=== PATIENT | male | born 1960 | race Caucasian/White ===

== ENCOUNTER 2024-07-19 16:49 | Emergency (ER) | payer OTHER, SELFPAY ==
--- NOTE | ~2024-07-19 | XR_ITS ---
EXAMINATION: XR chest 2V Exam Date/Time: 07/19/2024 17:53 DERMATOLOGY TEACHER HISTORY: cough Comparison: None. RESULT: Lines, tubes, and devices: None. Lungs and pleura: Clear. Cardiomediastinal silhouette: Unremarkable. Other: No acute osseous or upper abdominal finding. IMPRESSION: No acute cardiopulmonary process. Reviewed, dictated and finalized at location K. ATOLOGY TEACHER
--- OUTSIDE RECORDS SUMMARY | 2024-07-19 16:51 | XMS_ITS | Patient Health Record ---
Author Organization [facility] Address [address] [place] [address] Care Team Providers Care Hydraulic Blocker Name Role Phone Clinton Maddox Primary Care Provider [phone] Oscar Linares Unavailable [phone] Valery Moore Unavailable [phone] France Natarajan Unavailable [phone] Na Goldstein Unavailable [phone] Thi Braun Unavailable [phone] Vianca Pearson Unavailable [phone] Ese Jansen Unavailable [phone] Juliette Snow Unavailable [phone] Allergies Allergen (clinical drug ingredient) Drug/Non Drug Allergy documented on EMR Reaction Allergy Type Onset Date Status Mold Unknown Allergy Active No Known Drug Allergy Unknown Drug Allergy Active Results Component Value Reference Range Notes HIV Screen *HIV 1, 2 Ab, p24 Ag Reviewed date:11/24/2023 09:42:33 AM Interpretation: Performing Lab:[facility], [address] [facility], Phone - [phone], Director - PhDGrace Hospitalchristyi Notes/Report: HIV Ab/p24 Ag Screen Non Reactive Non Reactive HIV Negative HIV-1/HIV-2 antibodies and HIV-1 p24 antigen were NOT detected. There is no laboratory evidence of HIV infection. Hemoglobin A1c* Reviewed date:11/24/2023 09:42:33 AM Interpretation: Performing Lab:[facility], [address] [facility], Phone - [phone], Director - PhDMehul Notes/Report: Hemoglobin A1c 5.5 4.8-5.6 % . Prediabetes: 5.7 - 6.4 Diabetes: >6.4 Glycemic control for adults with diabetes: <7.0 Hepatitis C Virus Antibody w /Rflx to Quantitative Real-time PCR ([id number]) Reviewed date:11/24/2023 09:42:33 AM Interpretation: Performing Lab:[email or web address] [address] [place] [address], Phone - [phone], Director - [facility] Hospitalarben Notes/Report: HCV Ab Non Reactive Non Reactive Interpretation: Not infected with HCV unless early or acute infection is suspected (which may be delayed in an immunocompromised individual), or other evidence exists to indicate HCV infection. Lipid Panel* Reviewed date:11/24/2023 09:42:33 AM Interpretation: Performing Lab:[facility] [email or web address] [address] [place], [place] [address] [facility], Phone - [phone], Director - [facility] Hospital[facility]y Notes/Report: Cholesterol, Total 170 100-199 mg/dL Triglycerides 120 0-149 mg/dL HDL Cholesterol 43 >39 mg/dL VLDL Cholesterol Galo 22 5-40 mg/dL LDL Chol Calc ([facility]) 105 0-99 mg/dL CMP 14 Comprehensive Metabol ic Panel* Reviewed date:11/24/2023 09:42:33 AM Interpretation: Performing Lab:[email or web address] [address] [place] [address], Phone - [phone], Director - [facility] Notes/Report: Glucose 101 70-99 mg/dL BUN 15 8-27 mg/dL Creatinine 0.93 0.76-1.27 mg/dL eGFR 93 >59 mL/min/1.73 BUN/Creatinine Ratio 16 10-24 Sodium 133 134-144 mmol/L Potassium 5.5 3.5-5.2 mmol/L Chloride 94 96-106 mmol/L Carbon Dioxide, Total 26 20-29 mmol/L Calcium 9.1 8.6-10.2 mg/dL Protein, Total 6.7 6.0-8.5 g/dL Albumin 4.0 3.9-4.9 g/dL Globulin, Total 2.7 1.5-4.5 g/dL A/G Ratio 1.5 1.2-2.2 Bilirubin, Total 0.5 0.0-1.2 mg/dL Alkaline Phosphatase 84 44-121 IU/L AST (SGOT) 22 0-40 IU/L ALT (SGPT) 18 0-44 IU/L TSH Rfx on Abnormal to Free T4 Reviewed date:11/24/2023 09:42:33 AM Interpretation: Performing Lab:[facility] [place], [address] [facility]), Phone - [phone], Director - Shira Notes/Report: TSH 1.580 0.450-4.500 uIU/mL Reason For Referral Reason Therapy Diagnosis 1 MDD (major depressiv e disorder), recurrent episode, severe (F33.2) Diagnosis 2 PTSD (post-traumatic stress disorder) (F43.10) Diagnosis 3 Alcohol use disorder (F10.99) Diagnosis 4 Methamphetamine abus e (F15.10) Referral Organization [facility] Referring Provider First Name France Referring Provider Last Name Delgado Referring Provider Speciality Psychiatry Referred Provider Specialty [facility] General Notes France Natarajan 03:57:55 PM > Client with hx of and current depression, current anxiety, hx of PTSD, intermittent GENOVEVA with methamphetamine and alcohol. Please refer for therapy as client reports he would like to start. Thank you! Clinical Notes Gurinder Monahan 10:09:58 AM >HN PW attempted to contact consumer regarding referral. MICHAEL left requesting a return call., Rakan Espinosa 10/18/2023 10:10:24 AM > Client was unable to be reached, left a voicemail., Gurinder Monahan 10/20/2023 11:23:21 AM >HN PW attempted to contact consumer regarding referral. MICHAEL left requesting a return call., Gurinder Monahan 10/20/2023 03:43:39 PM >Letter mailed to consumer., Gurinder Monahan 10/27/2023 09:36:00 AM >HN PW attempted to contact consumer regarding referral. No answer at this time. If no response from consumer by 11/03/2023, will proceed with closure of case., Gurinder Monahan 11/04/2023 09:49:21 AM >No response from consumer; case closed. Referral Priority Routine Medications Medication SIG (Take, Route, Frequency, Duration) Notes Start Date End Date Status Farxiga 10 MG 1 tablet Orally Once a day Active Atorvastatin Calcium 40 mg TAKE 1 TABLET BY MOUTH DAILY for 30 Active dilTIAZem HCl ER Coated Beads 300 MG TAKE 1 CAPSULE BY MOUTH DAILY Active Fluticasone Furoate 100 MCG/ACT 1 puff Inhalation Once a day 11/25/2023 Active Spacer/Aero-Holding Chambers - one externally with inhaler as directed Not-Taking Gabapentin 400 mg TAKE 1 CAPSULE BY MOUTH THREE TIMES A DAY for 30 Active Eliquis 5 mg TAKE 1 TABLET BY CAROLINE TH TWICE A DAY Active Ventolin HFA 108 (90 Base) MCG/ACT 2 puffs as needed for shortness of breath Inhalation every 4 hrs 07/19/2024 Active Furosemide 20 MG 1 tablet Orally Once a day for 30 days Active Topiramate 25 MG TAKE 1 TABLET BY CAROLINE TH DAILY FOR TWO WEEKS THEN 2 TABLETS DAILY WITH EVENING MEAL Not-Taking Spironolactone 25 MG 1 tablet Orally Active Gabapentin 400 MG 1 capsule Orally Thr ee times a day for 30 days Active Metoprolol Succinate ER 50 MG 1 tablet Orally Once a day Active Mirtazapine 30 MG 1 tablet at bedtime Orally Once a day for 30 days Active Losartan Potassium 25 MG 1 tablet Orally Once a day Active hydrOXYzine Pamoate 50 MG 1 capsule as n eeded Orally Once a day for 30 days Active Multivitamin - as directed Orally Active DULoxetine HCl 60 MG 2 capsules Orally o nce a day for 30 days Active traZODone HCl 100 MG 1 tablet at bedtime as needed Orally Once a day for 30 days Active Immunizations Vaccine Route Administration Date Status Comme nts COVID-19 Moderna 1ST IM Intramuscular 09/11/2020 Administered EUA date 0. Screening reviewed and consent signed. Patient tolerated well. COVID-19 Moderna 2nd IM Intramuscular 10/16/2020 Administered Social History Tobacco Use: Social History Observation Description Date Details (start date - stop date) Current Smoker NA - NA Sex Assigned At : Social History Observation Description Sex Assigned At Male PRAPARE Question Answer Notes Date Completed/Updated: 07/18/2023 What is your current housing situation? I have housing Are you worried about losing your housing? No What is the highest level of school that you have finished? More than high school What is your current work situation? Unemployed and seeking work In the past year, have you o r any family members you live with been unable to get any of the following when it was really needed? Check all that apply I do not have problems meeting my needs Has lack of transportation k ept you from medical appointments, meetings, work or from getting things needed for daily living? No How often do you see or talk to people that you care about and feel close to? (For example: talking to friends on the phone, visiting friends or family, going to zoroastrianism or club meetings) 1 or 2 times a week Nathan talks with his daughter weekly, her and his cats are important to him and his recovery How stressed are you? Stress is when someone feels tense, nervous, anxious, or can\t sleep at night because their mind is troubled Very much coming off of a month long depression where he did not get off the couch, gained 100 pounds and snorted meth on a regular basis. Nathan is also in the process of moving houses In the past year have you sp ent more than 2 nights in a row in a snf, snf, skilled nursing center, or juvenile correctional facility? No Are you a refugee? No What country are you from? [place] Do you feel physically and emotionally safe where you currently live? Yes In the past year, have you b een afraid of your partner or ex-partner? No PRAPARE Score: 7 Enabling Services Provided? Yes Please specify Other Services discussed therap y process and problem solving skills to create a plan for when he leaves the unit Tobacco Control (Standard) Question Answer Notes Tobacco use: Current every day smoker Additional Findings: Tobacco user Moderate cigar ette smoker (10-19 cigs/day) Section Notes: Problems Problem Type SNOMED Code ICD Code Onset Dates Problem Status W/U Status Risk Notes Problem Morbid obesity (disorder) (256609216) Morbid (severe) obesity due to excess calories (E66.01) Active confirmed Problem Tobacco user (766085540) Nicotine dependence, unspecified, uncomplicated (F17.200) Active confirmed Problem Paroxysmal atrial fibrillation (901245192) Paroxysmal atrial fibrillation (I48.0) Active confirmed Problem Posttraumatic stress disorder (05207125) PTSD (post-traumatic stress disorder) (F43.10) Active confirmed Problem Asthma (945618244) Asthma (J45.909) Active conf irmed Problem Urinary incontinence (263947828) Urinary incontinence (R32) Active confirmed Problem 4300642271647 Tinnitus of both ears (H93.13) Active confirmed Problem Physical examination, complete (58528983) Physical exam (Z00.00) Active confirmed Problem Disorder caused by alcohol (disorder) (959676884) Alcohol use disorder (F10.99) Active confirmed Problem 419141860 Moderate episode of recurrent major depressive disorder (F33.1) 07/08/19 17 Active confirmed Problem Severe recurrent major depression without psychotic features (17793212) MDD (major depressive disorder), recurrent episode, severe (F33.2) Active confirmed Problem 810494714 Methamphetamine abuse (F15.10) Active confirmed Problem 080174641230175 Obesity (BMI 30.0-34.9) (E66.9) Active confirmed Problem 284834927 Erectile dysfunction, unspecified erectile dysfunction type (N52.9) Active confirmed Problem 87799374 Hyperlipidemia, unspecified hyperlipidemia type (E78.5) Active confirmed Problem 28312825 Peripheral polyneuropathy (G62.9) Active confirmed Problem 55523043 Hypertension, unspecified type (I10) 12/13/19 21 Active confirmed Problem Obesity (947601497) Obesity, unspecified classification, unspecified obesity type, unspecified whether serious comorbidity present (E66.9) Active confirmed Problem Chronic diastolic heart failure (820145448) Chronic diastolic congestive heart failure (I50.32) 10/20/19 24 Active confirmed Problem 0291176190707 Testosterone deficiency in male (E29.1) Active confirmed Problem 395044360 Chronic depressi on (F32.9) 12/13/19 21 Active confirmed Vital Signs Heart Rate 103 /min 07/19/2024 Temperature 99.6 degrees Fahrenheit 07/19/2024 Respiratory Rate 20 /min 07/19/2024 Blood pressure diastolic 90 mm Hg 07/18/2024 Oximetry 96 % 07/19/2024 Height 70 in 07/19/2024 Blood pressure systolic 132 mm Hg 07/18/2024 Weight 312 lbs 07/19/2024 BMI 44.76 kg/m2 07/19/2024 Encounters Encounter Location Date Provider Diagnosis [address] [place] [address] 08/11/2023 Thi Braun MDD (major depressiv e disorder), recurrent episode, severe F33.2 [facility] [address] [place] [address] 08/17/2023 Thi Braun [address] [place] [address] 09/30/2023 Clinton Maddox [address] [place] [place] [address] 11/21/2023 Clinton Maddox [facility] [address] [place] [address] 11/24/2023 Clinton Maddox Hyperkalemia E87.5 a nd Hyponatremia E87.1 [facility] [address] [facility] [place] [address] 11/28/2023 Clinton Maddox [address] [place] [place] [address] 05/18/2024 France Natarajan MDD (major depressiv e disorder), recurrent episode, severe F33.[address] [place] [address] 05/31/2024 France Natarajan [address] [place] [place] [address] 06/11/2024 [facility] [address] [place] [address] 06/19/2024 France [facility] [address] [place] [address] 07/05/2024 France Natarajan [address] [place] [address] 07/16/2024 France Natarajan [facility] [address] [facility] [place] [address] 07/19/2024 Clinton Maddox [address] [place] [place] [address] 10/20/2023 Clinton Maddox [facility] [address] [place] [address] 11/22/2023 Clinton Maddox Hyperlipidemia, unspecified hyperlipidemia type E78.5 ; Paroxysmal atrial fibrillation I48.0 ; Hypertension, unspecified type I10 ; Exposure to potential infection Z20.9 and Metabolic syndrome E88.810 [facility] [address] [place] [address] 11/21/2023 Valery Moore [address] [place] [address] 08/10/2023 Clinton Maddox Hypertension, unspecified type I10 ; Paroxysmal atrial fibrillation I48.0 ; Hyperlipidemia, unspecified hyperlipidemia type E78.5 ; Methamphetamine abuse F15.10 and Alcohol use disorder F10.[address] [address] 10/20/2023 Clinton Maddox Hypertension, unspecified type I10 ; Chronic diastolic congestive heart failure I50.32 ; Paroxysmal atrial fibrillation I48.0 ; Hyperlipidemia, unspecified hyperlipidemia type E78.5 ; Exposure to potential infection Z20.9 ; MDD (major depressive disorder), recurrent episode, severe F33.2 ; Metabolic syndrome E88.810 ; Morbid (severe) obesity due to excess calories E66.01 ; Nutritional counseling Z71.3 and Methamphetamine abuse F15.10 [facility] [place] [address] 11/25/2023 Clinton Maddox Chronic diastolic congestive heart failure I50.32 ; Asthma J45.909 and Hypertension, unspecified type I10 [address] [place] [address] 12/01/2023 Clinton Maddox Morbid (severe) obesity due to excess calories E66.01 and Nutritional counseling Z71.3 [facility] [place] [address] 07/19/2024 Ese Short Diaphoresis R61 and Urinary incontinence R32 [address] [place] [address] 07/18/2024 Oscar Linares General medical exam Z00.00 ; Tuberculosis screening Z11.1 ; Morbid (severe) obesity due to excess calories E66.01 and Nutritional counseling Z71.3 [facility] [address] [place] [address] 11/21/2023 Ese Jansen Adult general medica l examination Z00.00 and Nutritional counseling Z71.[address] [address] 11/23/2023 France Delgado Methamphetamine abus e F15.10 ; Alcohol use disorder F10.99 ; MDD (major depressive disorder), recurrent episode, severe F33.2 and PTSD (post-traumatic stress disorder) F43.[address] [address] 01/20/2024 Kyjaxona Pearson Methamphetamine abus e F15.10 ; Alcohol use disorder F10.99 ; MDD (major depressive disorder), recurrent episode, severe F33.2 and PTSD (post-traumatic stress disorder) F43.[address] [address] 06/11/2024 France Delgado Methamphetamine abus e F15.10 ; Alcohol use disorder F10.99 ; MDD (major depressive disorder), recurrent episode, severe F33.2 and PTSD (post-traumatic stress disorder) F43.[address] [address] 08/16/2023 Thi Braun Methamphetamine abus e F15.10 ; MDD (major depressive disorder), recurrent episode, severe F33.2 ; Alcohol use disorder F10.99 and PTSD (post-traumatic stress disorder) F43.[address] [address] 10/12/2023 France Delgado Methamphetamine abus e F15.10 ; Alcohol use disorder F10.99 ; MDD (major depressive disorder), recurrent episode, severe F33.2 and PTSD (post-traumatic stress disorder) F43.10 [facility] [address] [place] [address] 07/18/2024 Juliette Snow MDD (major depressiv e disorder), recurrent episode, severe F33.2 Assessments Encounter Date Diagnosis (ICD Code) Assessment Notes Treatment Notes Treatment Clinical Notes Section Notes 08/10/2023 Paroxysmal atrial fibrillation (ICD-10 - I48.0) 08/10/2023 Hypertension, unspecified type (ICD-10 - I10) sent info on mediterranean diet 08/11/2023 MDD (major depressive disorder), recurrent episode, severe (ICD-10 - F33.2) 08/16/2023 Methamphetamine abuse (ICD-10 - F15.10) 10/12/2023 Methamphetamine abuse (ICD-10 - F15.10) 10/20/2023 Hypertension, unspecified type (ICD-10 - I10) CONTROLLED 10/20/2023 Chronic diastolic congestive heart failure (ICD-10 - I50.32) 11/22/2023 Hyperlipidemia, unspecified hyperlipidemia type (ICD-10 - E78.5) 11/21/2023 Adult general medical examination (ICD-10 - Z00.00) 11/23/2023 Methamphetamine abuse (ICD-10 - F15.10) Encouraged therapy/groups 11/24/2023 Hyperkalemia (ICD-10 - E87.5) 11/24/2023 Hyponatremia (ICD-10 - E87.1) 11/25/2023 Asthma (ICD-10 - J45.909) 11/25/2023 Chronic diastolic congestive heart failure (ICD-10 - I50.32) 12/01/2023 Morbid (severe) obesity due to excess calories (ICD-10 - E66.01) 01/20/2024 Methamphetamine abuse (ICD-10 - F15.10) 05/18/2024 MDD (major depressive disorder), recurrent episode, severe (ICD-10 - F33.2) 06/11/2024 Methamphetamine abuse (ICD-10 - F15.10) Encouraged non-use 07/18/2024 General medical exam (ICD-10 - Z00.00) Continue treatment as recommended by [facility] staff. Encouraged patient to obtain routine medical care with patient's own primary care provider or establish as a patient at [facility] if no current primary care provider. 07/18/2024 Tuberculosis screening (ICD-10 - Z11.1) 07/18/2024 MDD (major depressive disorder), recurrent episode, severe (ICD-10 - F33.2) 07/19/2024 Urinary incontinence (ICD-10 - R32) 07/19/2024 Diaphoresis (ICD-10 - R61) 07/18/2024 Morbid (severe) obesity due to excess calories (ICD-10 - E66.01) 06/11/2024 Alcohol use disorder (ICD-10 - F10.99) Encouraged non-use 11/23/2023 Alcohol use disorder (ICD-10 - F10.99) Encouraged therapy/groups 01/20/2024 Alcohol use disorder (ICD-10 - F10.99) 12/01/2023 Nutritional counseling (ICD-10 - Z71.3) 11/25/2023 Hypertension, unspecified type (ICD-10 - I10) 11/21/2023 Nutritional counseling (ICD-10 - Z71.3) 11/22/2023 Paroxysmal atrial fibrillation (ICD-10 - I48.0) 10/20/2023 Paroxysmal atrial fibrillation (ICD-10 - I48.0) 10/12/2023 Alcohol use disorder (ICD-10 - F10.99) 08/16/2023 Alcohol use disorder (ICD-10 - F10.99) 08/16/2023 MDD (major depressive disorder), recurrent episode, severe (ICD-10 - F33.2) Antidepressant education - reviewed side effects which may include increased risk of suicide, anxiety, sleep disturbance, nausea, dry mouth, increased bruising, sexual dysfunction, iain, wt gain, and serotonin syndrome. Antipsychotics education - reviewed side effects which may include metabolic syndrome, movement disorders (EPS & TD), sedation, and cardiac arrhythmias. Reasons, potential benefits, interactions and side effects of all medications were discussed. The Patient/Guardian asked appropriate questions, appeared to understand the answers, and decided to accept the treatment and continue being followed. Alternatives and expected course without treatment were reviewed. The Patient/Guardian is aware of the need to contact the office or return for an earlier appointment if any problems or concerns arise. May also contact the 24-hour crisis hotline (R), refer to the closest emergency room or call 911 if new symptoms arise of existing symptoms worsen. The Patient/Guardian is aware that this would apply to symptoms like: suicidal ideation, homicidal ideation, high risk behaviors, manic symptoms, psychotic symptoms, physical symptoms, or any other symptoms that may be dangerous to self or others. Greater than 50% of time spent on coordination and counseling where psychopharmacology as well as psychotherapeutic interventions were discussed along with review of treatments in the past. Education provided concerning need for adequate hydration. Patient/Guardian verbalized understanding of education, treatment plan and follow up. May self-administer or be administered own oral medication per [facility] Protocols. Provided informed consent with understanding of side effects, risks and benefits as well as alternative treatments as previously discussed and with the above recommended medications ang other aspects of the treatment program. Agrees to return sooner if symptoms worsen or suicidal or homicidal ideations occur. support and education provided concerning illness and treatment plan, risks and benefits, pt verbalized understanding of the same and agreeable 08/10/2023 Hyperlipidemia, unspecified hyperlipidemia type (ICD-10 - E78.5) sent info on mediterranean diet and body weight exercises 08/10/2023 Methamphetamine abuse (ICD-10 - F15.10) abstaining 08/16/2023 PTSD (post-traumatic stress disorder) (ICD-10 - F43.10) 10/12/2023 MDD (major depressive disorder), recurrent episode, severe (ICD-10 - F33.2) 10/20/2023 Hyperlipidemia, unspecified hyperlipidemia type (ICD-10 - E78.5) 11/22/2023 Hypertension, unspecified type (ICD-10 - I10) 01/20/2024 MDD (major depressive disorder), recurrent episode, severe (ICD-10 - F33.2) Today's visit: Patient is a 63-year-old male who presents for a psychiatric f/u, this is my first time meeting this patient, and I am seeing them during the temporary absence of current psych provider. Previously seen on 11/23/2023 by LORENA Ruelas and during this appt was continued on Trazodone 100 mg PRN, hydroxyzine 50 mg PRN, Cymbalta DR 120 mg, Remeron 30 mg, Stopped on Abilify and increased on Gabapentin to 400 mg TID. Previous PHQ-9 score of 9, today is 15. Recently on crisis unit November 2023 for depression. Patient reports recent depressive episodes, social isolation, and difficulty with mobility due to his weight of 280 pounds. He has a history of substance abuse but is now focused on improving his health. The plan includes continuing current medications, encouraging regular exercise and healthy eating, addressing social isolation through volunteering or part-time work, and monitoring for any signs of crisis. Encourage the patient to establish a daily routine, including regular exercise such as walking, which has previously helped improve mood. Reevaluate the need for medication adjustments at the next follow-up appointment or sooner if symptoms worsen.No acute safety concerns the time of this appt, he is agreeable to treatment plan and was provided an opportunity to ask questions. May self-administer medications or be administered own oral medications per [facility] protocols. Provided informed consent with understanding of side effects, adverse effects, risks and benefits as well as alternative treatments as previously discussed and with the above recommended medications & other aspects of the treatment program. Agrees to return sooner if symptoms worsen or suicidal or homicidal ideations occur. 11/23/2023 MDD (major depressive disorder), recurrent episode, severe (ICD-10 - F33.2) Discussed temporary increase in gabapentin- monitoring sobriety. Client currently in [facility] with goal of sobriety after leaving. 06/11/2024 MDD (major depressive disorder), recurrent episode, severe (ICD-10 - F33.2) Client reports he may be going into [facility] to be evaluated for MH. Provider encouraged this for MH and substance use. Email sent to Behavioral Health team as client reports willingness to talk with crisis team. Email from Aria Eugene reports she plans to reach out to client. Discussed substance use and interference with MH medications and evaluation- client v/u. No changes at this time. Discussed possible changes with sobriety, client v/u. 07/18/2024 Nutritional counseling (ICD-10 - Z71.3) 06/11/2024 PTSD (post-traumatic stress disorder) (ICD-10 - F43.10) 01/20/2024 PTSD (post-traumatic stress disorder) (ICD-10 - F43.10) 11/22/2023 Exposure to potential infection (ICD-10 - Z20.9) 11/23/2023 PTSD (post-traumatic stress disorder) (ICD-10 - F43.10) Encouraged therapy/groups 10/20/2023 Exposure to potential infection (ICD-10 - Z20.9) 10/12/2023 PTSD (post-traumatic stress disorder) (ICD-10 - F43.10) 08/10/2023 Alcohol use disorder (ICD-10 - F10.99) abstaining 10/20/2023 MDD (major depressive disorder), recurrent episode, severe (ICD-10 - F33.2) START ABILIFY TODAY ORDERED. 11/22/2023 Metabolic syndrome (ICD-10 - E88.810) 10/20/2023 Metabolic syndrome (ICD-10 - E88.810) 10/20/2023 Morbid (severe) obesity due to excess calories (ICD-10 - E66.01) 10/20/2023 Nutritional counseling (ICD-10 - Z71.3) 10/20/2023 Methamphetamine abuse (ICD-10 - F15.10) MOST RECENT USE EARLY ABOUT ONE MONTH AGO 08/10/2023 Other continue f/u wi th psych 10/12/2023 Other Reasons, potential benefits, potential risks, interactions and side effects of all medications were discussed. The Patient/Guardian asked appropriate questions, appeared to understand the answers, and decided to accept the treatment and continue being followed. Alternatives and expected course without treatment were reviewed. The Patient/Guardian is aware of the need to contact the office or return for an earlier appointment if any problems or concerns arise. May also contact the 24-hour crisis hotline ([facility]), refer to the closest emergency room or call 911 if new symptoms arise of existing symptoms worsen. The Patient/Guardian is aware that this would apply to symptoms like: suicidal ideation, homicidal ideation, high risk behaviors, manic symptoms, psychotic symptoms, physical symptoms, or any other symptoms that may be dangerous to self or others. Greater than 50% of time spent on coordination and counseling where psychopharmacology as well as psychotherapeutic interventions were discussed along with review of treatments in the past. Education provided concerning need for adequate hydration. Patient/Guardian verbalized understanding of education, treatment plan and follow up. This session was completed telephonically with client/parental/guard jayda consent: Unable to determine movement status, assess appearance, affect, AIMS, or vital signs. 11/21/2023 Other Provided case management services to address social determinants of health needs and reduce barriers to health care services. 11/23/2023 Other Reasons, potential benefits, potential risks, interactions and side effects of all medications were discussed. The Patient/Guardian asked appropriate questions, appeared to understand the answers, and decided to accept the treatment and continue being followed. Alternatives and expected course without treatment were reviewed. The Patient/Guardian is aware of the need to contact the office or return for an earlier appointment if any problems or concerns arise. May also contact the 24-hour crisis hotline ([facility]), refer to the closest emergency room or call 911 if new symptoms arise of existing symptoms worsen. The Patient/Guardian is aware that this would apply to symptoms like: suicidal ideation, homicidal ideation, high risk behaviors, manic symptoms, psychotic symptoms, physical symptoms, or any other symptoms that may be dangerous to self or others. Greater than 50% of time spent on coordination and counseling where psychopharmacology as well as psychotherapeutic interventions were discussed along with review of treatments in the past. Education provided concerning need for adequate hydration. Patient/Guardian verbalized understanding of education, treatment plan and follow up. This session was completed telephonically with client/parental/guard jayda consent: Unable to determine movement status, assess appearance, affect, AIMS, or vital signs. 06/11/2024 Other Reasons, potential benefits, potential risks, interactions and side effects of all medications were discussed. The Patient/Guardian asked appropriate questions, appeared to understand the answers, and decided to accept the treatment and continue being followed. Alternatives and expected course without treatment were reviewed. The Patient/Guardian is aware of the need to contact the office or return for an earlier appointment if any problems or concerns arise. May also contact the 24-hour crisis hotline ([facility]), refer to the closest emergency room or call 911 if new symptoms arise of existing symptoms worsen. The Patient/Guardian is aware that this would apply to symptoms like: suicidal ideation, homicidal ideation, high risk behaviors, manic symptoms, psychotic symptoms, physical symptoms, or any other symptoms that may be dangerous to self or others. Greater than 50% of time spent on coordination and counseling where psychopharmacology as well as psychotherapeutic interventions were discussed along with review of treatments in the past. Education provided concerning need for adequate hydration. Patient/Guardian verbalized understanding of education, treatment plan and follow up. This session was completed telephonically with client/parental/guard jayda consent: Unable to determine movement status, assess appearance, affect, AIMS, or vital signs. 07/18/2024 Other 07/18/2024 Other Herbarium Curator met with Nathan to assist in working on building skills to help the consumer gain confidence in their independent living skills. The technical report writer practiced with Nathan implementing problem solving skills (identifying coping skills, positives in life, recovery plan) to help facilitate exploration of options (maintaining depression and sobriety after treatment). The technical report writer encouraged and engaged in critical thinking of how to use natural resources and coping skills to help manage symptoms in the moment. Herbarium Curator also worked on modeling and practicing with the consumer healthy coping skills to reduce stress and anxiety. Plan Of Treatment Future Test Test Name Order Date QuantiFERON-TB Gold Plus 07/18/2024 Next Appt Details Provider Name:France Meet post, 07/23/2024 01:40:00 PM, [address] [facility] [address], [place], [address], Insurance Providers Payer Name Payer Address Payer Phone Subscriber Number Group Number Insured Name Patient Relationship to Insured Coverage Start Date Coverage End Date [facility] Attn Claims Department [address] [place] [phone] [id number] Nathan Thibodeaux Self - patient is the insured 4 [employer] Att[employer] Claims Department [address] [place] [phone] [id number] Nathan Thibodeaux Self - patient is the insured 1 [employer] Att[employer] Claims Department [address] [place] [phone] [id number] Nathan Thibodeaux Self - patient is the insured 2 [employer] Attn Claims Department [address] [phone] [id number] aNthan Thibodeaux Self - patient is the insured 5 Medications Administered Medication Instructions Date of Administration Dosage Notes Vivitrol 12/12/2020 380 mg Trust Manager Assistant A roma. Pt tolerated well. Voiced no questions or concerns at present time. Vivitrol 02/06/2021 380 mg Patient tolera isaias injection well. Patient voiced no complaints and had no questions and had no concerns. Medical (General) History Medical History History ICD Code Moderate episode of recurrent major depr essive disorder Alcohol abuse Hypertension Anxiety Surgical History Surgery Date(Month/Year) Bilateral knee replacement Hospitalization History Reason Date(Month/Year) multiple mental health
--- OUTSIDE RECORDS SUMMARY | 2024-07-19 16:51 | XMS_ITS ---
Author Organization [facility] Address [address] [place] [address] Care Team Providers Care Lease Out Worker Name Role Phone Clinton Maddox Primary Care Provider Juliette Snow Unavailable [phone] REASON FOR VISIT at Social History Sex Assigned At : Social History Observation [...] phone, visiting friends or family, going to bahai or club meetings) 1 or 2 times [...] 2 nights in a row in a fdc, fci, halfway center, or juvenile correctional facility? No Do you feel physically and emotionally safe where you currently live? Yes In the past year, have you b een afraid of your partner or ex-partner? No Are you a refugee? No What country are you from? [place] PRAPARE Score: 7 Enabling Services Provided? Yes Please specify Other Services discussed therap y process and problem solving skills to create a plan for when he leaves the unit Section Notes: 0 Encounters Encounter Location Date Provider Diagnosis [facility] [address] [place] [address] 07/18/2024 Juliette Snow MDD (major depressive disorder), recurrent episode, severe F33.2 Assessments Encounter Date Diagnosis (ICD Code) Assessment Notes Treatment Notes Treatment Clinical Notes Section Notes 07/18/2024 MDD (major depressive disorder), recurrent episode, severe (ICD-10 - F33.2) 07/18/2024 Other Data Technician met with Nathan to assist in working on building skills to help the consumer gain confidence in their independent living skills. The writer producer practiced with Nathan implementing problem solving skills (identifying coping skills, positives in life, recovery plan) to help facilitate exploration of options (maintaining depression and sobriety after treatment). The writer producer encouraged and engaged in critical thinking of how to use natural resources and coping skills to help manage symptoms in the moment. Data Technician also worked on modeling and practicing with the consumer healthy coping skills to reduce stress and anxiety. Plan Of Treatment Treatment Notes Assessment Notes Other Data Technician met with Nathan to assist in working on building skills to help the consumer gain confidence in their independent living skills. The writer producer practiced with Nathan implementing problem solving skills (identifying coping skills, positives in life, recovery plan) to help facilitate exploration of options (maintaining depression and sobriety after treatment). The writer producer encouraged and engaged in critical thinking of how to use natural resources and coping skills to help manage symptoms in the moment. Data Technician also worked on modeling and practicing with the consumer healthy coping skills to reduce stress and anxiety. Next Appt Details Follow Up: prn, Reason: Provider Name:France post, 07/23/2024 01:40:00 PM, [address], [place], [address], Progress Notes * Nathan GONZALEZDOB:1960 (63 yo M)Acc No.[id number]:07/18/2024 Patient:?Nathan GONZALEZ Provider:?Juliette Snow :1960???Age:63 Y???Sex:Male Ifeanyi e:07/18/2024 Address:[address] [place], [place] [id number] Pcp:Clinton Maddox Subjective: * Chief Complaints: * ???[facility] * HPI: ???[facility]:?Who Is Your Primary Care Provider??Do You Have A PCP??Yes,?[facility] Provider Name? Varsha.?Do You Have A Psychiatric Provider??Do You Have A Psychiatric Provider??Yes,?[facility] Provider Name? france.?Do You Have Any Other Professional Supports??Do You Have Any Other Professional Supports??Yes,?[facility] Staff Name And Role? Currently on unit.?Consent Forms Completed During Appointment?Consent Forms Completed?Consent To Treat, Health Care Providers, Emergency Contact, Probation/[place].?Assessment of Social Determinants of Health:::?Has A PRAPARE Been Completed In The Past Year??Has a PRAPARE Been Completed In The Past Year??Yes,?Was It Completed Today Using SmartVidAngel??Yes.? * Medical History:? * Medications:? Objective: * Vitals:? * Examination: ???General Examination: ???Nathan was AOx4, minor jerks of the hand and SOB during conversations, he was engaged and alert with disucssion. Nathan reports he is where he is supposed to be [at [place]] and will get started on his recovery plan and goals as soon as possible. He states this round of depression and relapse was the worst he's ever experienced and scared him straight. Assessment: * Assessment: 1.?MDD (major depressive dis order), recurrent episode, severe - F33.2 (Primary)??? Plan: * Treatment: * Procedure Codes:?[address] [id number] PT&/FAMILY 30 MINUTES AJ * Follow Up:?prn * * ODIAL LABORER Electronically co-signed by Valery Moore LCSW, [id number] on 07/18/2024 at 05:02 PM CUSTODIAL LABORER Sign off status: Completed true * Provider:?Juliette Snow Date:?07/18/19 25 Generated for Cheyanne carranza/Bret/eTransmitting on:?07/19/2024 04:51 PM CUSTODIAL LABORER History and Physical Notes * HPI (History of Present Illness) Category Sub-Category Detail Notes Category Not es Assessment of Social Determinants of Health:: Has A PRAPARE Been Completed In The Past Year? Has a PRAPARE Been Completed In The Past Year?: Yes ?Was It Completed Today Using SmartForm? : Yes [facility] Who Is Your Primary Care Provider? Do You Have A PCP?: Yes ?[facility] Provider Name: Varsha Do You Have A Psychiatric Provider? Do You Have A Psychiatric Provider?: Yes ?[facility] Provider Name: france Do You Have Any Other Profes sional Supports? Do You Have Any Other Professional Supports?: Yes ?[facility] Staff Name And Role: Currently on u nit Consent Forms Completed Johan carranza Appointment Consent Forms Completed: Consent To Elle t, Health Care Providers, Emergency Contact, Probation/[place] Examination Category Sub-Category Detail Notes Category Not es General Examination Nathan wa s AOx4, minor jerks of the hand and SOB during conversations, he was engaged and alert with disucssion. Nathan reports he is where he is supposed to be [at [place]] and will get started on his recovery plan and goals as soon as possible. He states this round of depression and relapse was the worst he's ever experienced and scared him straight
--- OUTSIDE RECORDS SUMMARY | 2024-07-19 16:52 | XMS_ITS ---
Author Organization [facility] Address [address] [place] [address] Care Team Providers Care Lab Instructor Name Role Phone Clinton Maddox Primary Care Provider [phone] Medications Medication SIG (Take, Route, Frequency, Duration) Notes Start Date End Date Status Ventolin HFA 108 (90 Base) MCG/ACT 2 puffs as needed for shortness of breath Inhalation every 4 hrs 07/19/2024 Active Social History Sex Assigned At : Social History Observation Description Sex Assigned At Male Encounters Encounter Location Date Provider Diagnosis [facility] [address] [place] [address] 07/19/2024 Clinton Maddox Plan Of Treatment Medication Medication Name Sig Start Date Stop Date Notes ProAir HFA 108 (90 Base) MCG/ACT 2 puffs as needed Inhalation every 4 hrs Ventolin HFA 108 (90 Base) MCG/ACT 2 puffs as needed for shortness of breath Inhalation every 4 hrs 07/19/2024 Next Appt Details Provider Name:France post, 07/23/2024 01:40:00 PM, [address] [facility] [address], [place], [address], Progress Notes * Nathan GONZALEZDOB:1960 (63 yo M)Acc No.[id number]:07/19/2024 Patient:?CARLOS Nathan :1960???Age:63 Y???Sex:Male Address:[address] [place] [address], [address] * Refills? Stop ProAir HFA Aerosol Solution, 108 (90 Base) MCG/ACT, Inhalation, 2 puffs as needed, every 4 hrs Start Ventolin HFA Aerosol Solution, 108 (90 Base) MCG/ACT, Inhalation, 1, 2 puffs as needed for shortness of breath, every 4 hrs, Refills=1 * true * Date:? Generated for Cheyanne carranza/Bret/eTbrendasmitting on:?07/19/2024 04:51 PM CAR STORER
--- OUTSIDE RECORDS SUMMARY | 2024-07-19 16:52 | XMS_ITS ---
Author Organization [facility] Address [address] [place] [address] Care Team Providers Care Transformer Stock Clerk Name Role Phone Clinton Maddox Primary Care Provider Ese Jansen Unavailable [phone] Allergies Allergen (clinical drug ingredient) Drug/Non Drug Allergy documented on EMR Reaction Allergy Type Onset Date Status Mold Unknown Allergy Active No Known Drug Allergy Unknown Drug Allergy Active REASON FOR VISIT On CRU- fever and respiratory symptoms Medications Medication SIG (Take, Route, Frequency, Duration) Notes Start Date End Date Status Atorvastatin Calcium 40 mg TAKE 1 TABLET BY MOUTH DAILY for 30 Active dilTIAZem HCl ER Coated Beads 300 MG TAKE 1 CAPSULE BY MOUTH DAILY Active hydrOXYzine Pamoate 50 MG 1 capsule as n eeded Orally Once a day for 30 days Active DULoxetine HCl 60 MG 2 capsules Orally o nce a day for 30 days Active traZODone HCl 100 MG 1 tablet at bedtime as needed Orally Once a day for 30 days Active Fluticasone Furoate 100 MCG/ACT 1 puff Inhalation Once a day 11/25/2023 Active Gabapentin 400 mg TAKE 1 CAPSULE BY MOUTH THREE TIMES A DAY for 30 Active Eliquis 5 mg TAKE 1 TABLET BY CAROLINE TH TWICE A DAY Active Furosemide 20 MG 1 tablet Orally Once a day for 30 days Active Metoprolol Succinate ER 50 MG 1 tablet Orally Once a day Active Farxiga 10 MG 1 tablet Orally Once a day Active Spacer/Aero-Holding Chambers - one externally with inhaler as directed Not-Taking Spironolactone 25 MG 1 tablet Orally Active Losartan Potassium 25 MG 1 tablet Orally Once a day Active Multivitamin - as directed Orally Active Ventolin HFA 108 (90 Base) MCG/ACT 2 puffs as needed for shortness of breath Inhalation every 4 hrs 07/19/2024 Active Topiramate 25 MG TAKE 1 TABLET BY CAROLINE TH DAILY FOR TWO WEEKS THEN 2 TABLETS DAILY WITH EVENING MEAL Not-Taking Gabapentin 400 MG 1 capsule Orally Thr ee times a day for 30 days Active Mirtazapine 30 MG 1 tablet at bedtime Orally Once a day for 30 days Active Social History Tobacco Use: Social History Observation Description Date Details (start date - stop date) Current Smoker NA - NA Sex Assigned At : Social History Observation Description Sex Assigned At Male Tobacco Control (Standard) Question Answer Notes Tobacco use: Current every day smoker Additional Findings: Tobacco user Moderate cigar ette smoker (10-19 cigs/day) Problems Problem Type SNOMED Code ICD Code Onset Dates Problem Status W/U Status Risk Notes Problem Urinary incontinence (810551875) Urinary incontinence (R32) Active confirmed Vital Signs Weight 312 lbs 07/19/2024 Height 70 in 07/19/2024 BMI 44.76 kg/m2 07/19/2024 Heart Rate 103 /min 07/19/2024 Oximetry 96 % 07/19/2024 Temperature 99.6 degrees Fahrenheit 07/19/19 Respiratory Rate 20 /min 07/19/2024 Encounters Encounter Location Date Provider Diagnosis [place] [address] [place] [address] 07/19/2024 Ese Jansen Diaphoresis R61 and Urinary incontinence R32 Assessments Encounter Date Diagnosis (ICD Code) Assessment Notes Treatment Notes Treatment Clinical Notes Section Notes 07/19/2024 Diaphoresis (ICD-10 - R61) 07/19/2024 Urinary incontinence (ICD-10 - R32) Plan Of Treatment Next Appt Details Provider Name:[place] post, 07/23/2024 01:40:00 PM, [address] [facility] , [place], [address], Progress Notes * Nathan GONZALEZDOB:1960 (63 yo M)Acc No.[id number]:07/19/2024 UNLOCKED PROGRESS NOTE Progress Note Patient:?Nathan GONZALEZ Provider:?ZAKI Kovacs:1960???Age:63 Y???Sex:Male Ifeanyi e:07/19/2024 Address:[address] [place], [place]-[address] Pcp:Clinton Maddox Check 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 On CRU- fever and resp iratory symptoms. * HPI: ???Summary:? Pt. on CRU for ETOH and ICE abuse. Pt reports he went through?detox at [facility] before coming to [facility]: 2 nights prior,??Asthma exacerbation, cough (slightly productive), fever, BA's, chills PMH: asthma, HTN, CHF,? started yesterday- uncontrolled urination- dribbling on himself.? Reports he just does not feel well.? Strong smell of urination, diaphoretic, diminished lung sounds throughout, exp. wheeze throughout 3 medical personnel attempted to get BP reading- all unable. Pt. being referred to [place] ED for possible chest X-ray and evaluation. * ROS:?General/Constitutional:?diaphoresis? Admits.?Lethargy?Admits.?Denies?Change in appetite.?Admits?Chills.?Admits?Fatigue.?Admits?Fever.?Admits?Headache.?Denies?W eight loss.?Respiratory:?Dyspnea? Admits.?Admits?Asthma.?Denies?Chest pain.?Admits?Cough.?Admits?Shortness of breath.?Cardiovascular:?Denies?Edema.?Denies?Chest pain.?Denies?Claudication.?Gastrointestinal:?Denies?Abdominal pain.?Denies?Nausea.?Genitourinary:?Enuresis? Denies.?Denies?Flank Pain.?urinary problems?Admits,?reports dribbling and inability to control urine over last 24 hours.?Admits?Fever/Chills.?Incontinence?Admits.?Denies?Abdominal pain/swelling.?Denies?Blood in urine.?Denies?Frequent urination.?Denies?Pain in lower back.?Denies?Painful urination.?Musculoskeletal:?Patient denies?musculoskeletal concerns.?Skin:?Denies?Rash.? 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 * Surgical History:?Bilateral knee replacement . * Hospitalization/Major Diagno stic Procedure:?multiple mental health . * Family History:?Father: dece ased.?Mother: .?1 daughter(s) - healthy. .? * Social History:?Primary Social History:?Living Arrangement?Living Arrangement:?Independent Living.?Alcohol Use?Alcohol Use Frequency:?Monthly or less had beer yesterday.?Illicit Substance Usage?Illicit Substance Usage:?Yes last use week ago,?Substance Used:?Methamphetamine,?Interested in quitting:?Yes.?Employment Status?Employment Status:?On Disability.?Tobacco Use:?Tobacco Control (Standard)?Tobacco use:?Current every day smoker,?Additional Findings: Tobacco user?Moderate cigarette smoker (10-19 cigs/day).? * Medications:?Taking Farxiga 10 MG Tablet 1 tablet Orally Once a day , Taking Losartan Potassium 25 MG Tablet 1 tablet Orally Once a day , Taking Multivitamin - Tablet as directed Orally , Taking Spironolactone 25 MG Tablet 1 tablet Orally , Taking Metoprolol Succinate ER 50 MG Tablet Extended Release 24 Hour 1 tablet Orally Once a day , Taking Eliquis 5 mg Tablet TAKE 1 TABLET BY MOUTH TWICE A DAY , Taking Furosemide 20 MG Tablet 1 tablet Orally Once a day , Taking Fluticasone Furoate 100 MCG/ACT Aerosol Powder Breath Activated 1 puff Inhalation Once a day , Taking Gabapentin 400 mg Capsule TAKE 1 CAPSULE BY MOUTH THREE TIMES A DAY , Taking Atorvastatin Calcium 40 mg Tablet TAKE 1 TABLET BY MOUTH DAILY , Taking dilTIAZem HCl ER Coated Beads 300 MG Capsule Extended Release 24 Hour TAKE 1 CAPSULE BY MOUTH DAILY , Taking traZODone HCl 100 MG Tablet 1 tablet at bedtime as needed Orally Once a day , Taking hydrOXYzine Pamoate 50 MG Capsule 1 capsule as needed Orally Once a day , Taking DULoxetine HCl 60 MG Capsule Delayed Release Sprinkle 2 capsules Orally once a day , Taking Gabapentin 400 MG Capsule 1 capsule Orally Three times a day , Taking Mirtazapine 30 MG Tablet 1 tablet at bedtime Orally Once a day , Taking Ventolin HFA 108 (90 Base) MCG/ACT Aerosol Solution 2 puffs as needed for shortness of breath Inhalation every 4 hrs , Not-Taking Topiramate 25 MG Tablet TAKE 1 TABLET BY MOUTH DAILY FOR TWO WEEKS THEN 2 TABLETS DAILY WITH EVENING MEAL , Not-Taking Spacer/Aero-Holding Chambers - Device one externally with inhaler as directed , Medication List reviewed and reconciled with the patient * Allergies:?Mold, No Known Dr josey Allergy. Objective: * Vitals:?Wt:312, Ht:70, BMI:4 4.76, HR:103, Oxygen sat %:96, Temp:99.6, RR:20. * Examination: ???General Examination: ?GENERAL APPEARANCE:?ill-appearing, obese, disheveled, unkempt,??mild distress.?EYES:?PERRLA, sclera and conjunctiva clear.?EARS?normal.?NOSE:?septum intact, mucoid discharge.?ORAL CAVITY:?mucosa moist.?THROAT:?not examined.?SKIN:?diaphoretic.?HEART:?regular rate and rhythm, no murmurs.?LUNGS:?bilateral scattered exp. wheeze ?Bilateral diminished lung sounds.?ABDOMEN:?bowel sounds present, soft, nontender, nondistended, no masses palpable, no organomegaly .?PERIPHERAL PULSES:?2+ radial.? Assessment: * Assessment: 1.?Urinary incontinence - R3 2???2.?Diaphoresis - R61 (Primary)??? Plan: * Treatment: * Recommended Wellness and Pre vention Guidelines: * ?Status ?Alert ?Last Done ?Next Due ?Action Taken ?NONCOMPLIANT ?Colorectal cancer screening ?- ? 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 on CRU for ETOH and ICE abuse. Pt reports he went through detox at [facility] before coming to [facility]: 2 nights prior, Asthma exacerbation, cough (slightly productive), fever, BA's, chills PMH: asthma, HTN, CHF, started yesterday- uncontrolled urination- dribbling on himself. Reports he just does not feel well. Strong smell of urination, diaphoretic, diminished lung sounds throughout, exp. wheeze throughout 3 medical personnel attempted to get BP reading- all unable. Pt. being referred to [place] ED for possible chest X-ray and evaluation Examination Category Sub-Category Detail Notes Category Not es General Examination GENERAL APPEARANCE: ill-appe aring, obese, disheveled, unkempt, mild distress EYES: PERRLA, sclera and c onjunctiva clear EARS normal NOSE: septum intact, mucoi d discharge THROAT: not examined HEART: regular rate and rhy thm, no murmurs LUNGS: bilateral scattered exp. wheeze Bilateral diminished lung sounds ABDOMEN: bowel sounds present , soft, nontender, nondistended, no masses palpable, no organomegaly SKIN: diaphoretic PERIPHERAL PULSES: 2+ radial ORAL CAVITY: mucosa moist
--- OUTSIDE RECORDS SUMMARY | 2024-07-19 16:52 | XMS_ITS | Clinical Summary ---
Author Organization [facility] Address [address] [place] [address]. [address] [address] Care Team Providers Care Manager Law Name Role Phone Unavailable Primary Care Provider Unavailabl e Social History Tobacco Use Types Packs/Day Years Used Date Smoking Tobacco: Never Assessed Sex and Gender Information Value Date Recorded Sex Assigned at Not on file Legal Sex Male 6:08 PM CDT Gender Identity Not on file Sexual Orientation Not on file Plan of Treatment Health Maintenance Due Date Last Done Comments Colorectal Cancer Screening Colonoscopy (10 Years) 1962 Annual Physical 1965 Hepatitis C 1980 DTaP, Tdap and Td Vaccines ( 1 - Tdap) 1981 Zoster Vaccines (1 of 2) 2012 COVID-19 Vaccine (2023-2 5 season) 2024 Influenza Adult (#1) 2024 RSV Immunization or 60+ Years (1 - 1-dose 75+ series) 2037 Meningococcal B Vaccine Aged Out No l onger eligible based on patient's age to complete this topic Meningococcal Vaccine Aged Out No kenzie enedina eligible based on patient's age to complete this topic Pneumococcal Vaccine: Pediat rics (0 to 5 Years) and At-Risk Patients (6 to 64 Years) Aged Out No longer eligible b ased on patient's age to complete this topic RSV Immunizations Under 20 Months Aged Out No longer eligible based on patient's age to complete this topic
[2024-07-19 16:57] VITALS: BP 124/80; PULSE 90; RESP 18; TEMP 36.8; O2SAT 96
--- NOTE | 2024-07-19 17:41 | ED_ITS ---
HPI - General Adult General Chief complaint: Fever Stated complaint: fever and URI symptoms x2d Time Seen by Provider: 07/19/24 19:50 Focused HPI: this is a 63-year-old male who presents to the ED for chief complaint of cough, congestion and fevers for the past 2-3 days. Patient states that responded for work he had an asthma attack describes a wheezing sensation. States that he today he feels a little tight but is not having any chest pain for back pain. States that he started breaking out in sweat today has had chills along with sore throat. denies nausea, vomiting, abdominal pain, flank pain, urinary symptoms. GENERAL: Diaphoretic. Resting comfortably. HEAD: Normocephalic, atraumatic. CHEST: Saturating 96% room air. No respiratory distress. HEART: Regular rate and rhythm. NEURO: Alert and oriented x3. Patient screened in triage and initial orders placed. Additional care and disposition to be based upon diagnostic testing and treatment. Source: patient Mode of arrival: ambulatory Limitations: no limitations Related Data Allergies Allergy/AdvReac Type Severity Reaction Status Date / Time No Known Allergies Allergy Verified 07/19/24 16:51 Review of Systems Review of Systems: All systems as dictated in HPI Exam Narrative: GENERAL: General exam is improved from earlier. He is no longer diaphoretic. Appears fatigued but overall does not appear toxic. HEAD: Normocephalic, atraumatic. EYES: PERRLA and EOMI. ENT: Nares clear, no rhinorrhea or epistaxis. Mucous membranes moist. Oropharynx without tonsillar hypertrophy exudate or other lesions. NECK: Supple. No adenopathy or masses. CHEST: No respiratory distress. Clear to auscultation. No wheezes rales or rhonchi HEART: Regular rate and rhythm. No murmur heard. Normal peripheral pulses. ABDOMEN: Soft, nontender, nondistended, normal active bowel sounds. MSK: Normal range of motion. No edema. SKIN: Warm, dry, no rash. NEURO: Alert and oriented x4. No focal deficits. PSYCH: Normal mood and affect. Course Vital Signs Vital signs: Vital Signs Temperature 98.2 F 07/19/24 16:57 Pulse Rate 90 07/19/24 16:57 Respiratory Rate 18 07/19/24 16:57 Blood Pressure 124/80 07/19/24 16:57 Pulse Oximetry 96 07/19/24 16:57 Temperature 98.2 F 07/19/24 16:57 Pulse Rate 90 07/19/24 16:57 Respiratory Rate 18 07/19/24 16:57 Blood Pressure 124/80 07/19/24 16:57 Pulse Oximetry 96 07/19/24 16:57 Medical Decision Making MDM Narrative Medical decision making narrative: This is a 63-year-old male who presents to the ED for chief complaint of cough, congestion, body aches and fevers. Vitals are normal. Exam is remarkable for the above. Influenza test is positive. Chest x-ray is negative. He does not appear in respiratory distress. He does have mild wheezing on exam so albuterol will be prescribed as well as Tessalon Perles for cough. He is more than 48 hours from symptom onset and would likely not benefit from Tamiflu. Patient will be discharged in stable condition. Supportive measures discussed and return precautions given. Patient is understanding and agreeable with plan for discharge with PCP follow-up. Vital Signs Vital Signs: Vital Signs Temperature 98.2 F 07/19/24 16:57 Pulse Rate 90 07/19/24 16:57 Respiratory Rate 18 07/19/24 16:57 Blood Pressure 124/80 07/19/24 16:57 Pulse Oximetry 96 07/19/24 16:57 Temperature 98.2 F 07/19/24 16:57 Pulse Rate 90 07/19/24 16:57 Respiratory Rate 18 07/19/24 16:57 Blood Pressure 124/80 07/19/24 16:57 Pulse Oximetry 96 07/19/24 16:57 Lab Data Labs: Lab Results 07/19/24 Range/Units 18:35 Influenza A (RT-PCR) Positive A (Negative) Influenza B (RT-PCR) Negative (Negative) RSV (RT-PCR) Negative (Negative) SARS-CoV-2 RNA (RT-PCR) Negative (Negative) Discharge Plan Discharge Clinical Impression: Influenza Patient Disposition: Home, Self-Care Condition: Stable Instructions: Antibiotic Form, Influenza (ED) Additional Instructions: Exam and imaging today are reassuring overall. Your flu test is positive. Please make sure that you are staying well hydrated. Take Tylenol 500 mg and ibuprofen 600 mg every 6 hours as needed for pain and fevers. If you have any new or worsening symptoms please return to the ER for further evaluation. Patient Language: Puerto Rican Prescriptions: New benzonatate 100 mg capsule 100 mg PO BID PRN (Reason: cough) Qty: 20 0RF albuterol sulfate 90 mcg/actuation aerosol powdr breath activated 2 inh inhalation Q6H PRN (Reason: shortness of breath or wheezing) Qty: 1 0RF Follow-up/Referrals: Clinton Maddox MD [Primary Care Provider] - Time of Disposition: 19:52
--- NOTE | 2024-07-19 18:29 | PC.NURSE ---
Unable to collect blood, Unsuccessful attempts from 2 RN's. EDP aware
[2024-07-19 19:17] LABS: Influenza A QL RT-PCR Positive (Negative); Influenza B QL RT-PCR Negative (Negative); RSV RNA, RT-PCR Negative (Negative); SARS-CoV-2 RNA PCR Negative (Negative)
--- OUTSIDE RECORDS SUMMARY | 2024-07-19 20:13 | XMS_ITS | Clinical Summary ---
Author Organization [facility] Address [address] [place] [address] Care Team Providers Care Relish Maker Name Role Phone Clinton Maddox MD Primary Care Provider [phone] Clinton Maddox MD Unavailable [phone] Allergies No known active allergies Medications DULoxetine DR (Cymbalta) 60 mg capsule Take 1 capsule (60 mg total) by mouth every 12 hours Active atorvastatin (LIPITOR) 40 mg tablet Take 1 tablet (40 mg total) by mouth daily Active albuterol HFA (PROVENTIL HFA,VENTOLIN HFA,PROAIR HFA) 90 mcg/actuation inhaler Inhale 2 puffs every 6 (six) hours as needed for wheezing or shortness of breath 01/08/20 14 Active gabapentin (NEURONTIN) 300 mg capsule Take 2 capsules (600 mg total) by mouth 3 (three) times a day 01/08/20 14 Active mirtazapine (REMERON) 15 mg tablet Take 1 tablet (15 mg total) by mouth nightly 01/09/20 14 Active apixaban (ELIQUIS) 5 mg tablet Take 1 tablet (5 mg total) by mouth 2 (two) times a day Active hydrOXYzine (VISTARIL) 25 mg capsule Take 2 capsules (50 mg total) by mouth daily Active furosemide (LASIX) 20 mg tablet Take 1 tablet (20 mg total) by mouth daily 30 tablet 11 11/10/19 24 025 Active metoprolol tartrate (LOPRESSOR) 50 mg immediate release tablet Take 1 tablet (50 mg total) by mouth 2 (two) times a day 180 tablet 3 11/10/19 24 025 Active losartan (COZAAR) 25 mg tablet Take 1 tablet (25 mg total) by mouth daily 30 tablet 11 11/10/19 24 025 Active spironolactone (ALDACTONE) 25 mg tablet Take 1 tablet (25 mg total) by mouth daily 90 tablet 3 11/10/19 24 025 Active dapagliflozin propanediol (Farxiga) 10 mg tablet Take 1 tablet (10 mg total) by mouth daily 30 tablet 11/10/19 24 Active traZODone (DESYREL) 50 mg tablet Take 1 tablet (50 mg total) by mouth nightly Active dilTIAZem CD (CARDIZEM CD) 300 mg 24 hr capsule Take 1 capsule (300 mg total) by mouth daily 30 capsule 07/17/19 026 Active multivit kgteetxk-glrf-B A-calcium (THERA-M) 9 mg iron-400 mcg tabletIndicatio ns:Vitamin Deficiency Prevention Take 1 tablet by mouth daily 30 tablet 07/18/19 25 025 Active thiamine (VITAMIN B1) 100 mg tablet Take 1 tablet (100 mg total) by mouth daily 30 tablet 07/18/19 25 025 Active ALPRAZolam (XANAX) 0.25 mg tabletIndicatio ns:Generalized Anxiety Disorder Take 1 tablet (0.25 mg total) by mouth 2 (two) times a day as needed for anxiety 10 tablet 05/23/20 22 025 Discontinued(St op Taking at Discharge) dilTIAZem CD (CARDIZEM CD) 300 mg 24 hr capsule Take 1 capsule (300 mg total) by mouth daily 30 capsule 06/21/19 025 Discontinued ARIPiprazole (ABILIFY) 5 mg tablet daily 10/12/19 24 025 Discontinued(St op Taking at Discharge) Active Problems Problem Noted Date Diagnosed Date Permanent atrial fibrillation (CMS/HCC) 09/22/19 24 Acute systolic congestive heart failure (CMS/HCC ) 09/21/2023 Paroxysmal atrial fibrillation (CMS/HCC) 024 Overview (07/21/2023): Noted in May 2023. Now on Eliquis 5 mg p.o. b.i.d.. Elevated LDL cholesterol level 07/21/2023 Overview (07/21/2023): Lipitor 40 mg p.o. q.d.. No lipid panel on Epic. A lipid panel will be useful. Alcohol abuse 07/21/2023 Chronic heart failure with p reserved ejection fraction ([facility]/HCC) 06/15/2023 Overview (07/21/2023): Treated for HFpEF in May 2023. Schizoaffective disorder ([facility]) 06/15/2023 Acute hypoxic respiratory failure 06/14/2023 COPD exacerbation 06/14/2023 Drug abuse ([facility]) 06/14/2023 Overview (07/21/2023): On cannabis and amphetamine, both of which can cause cardiac dysrhythmias. Hyponatremia 06/14/2023 Laceration of arm, right, mu ltiple sites, with tendon involvement, initial encounter 05/15/2023 Encounters Date Type Department Care Team Description 07/17/2024 Documentation [facility] [address] [place], [place] [phone] Jennifer Bernardo 07/17/2024 Documentation [facility] [address] [place], [place] [phone] Jennifer Bernardo 07/16/2024 [facility] Enrollment [facility] [address] [place], [place] [phone] Vidal Smalls 07/16/2024 Documentation [facility] [address] [place], [place] [phone] Alayna Winter 07/14/2024 Telephone [facility] [address] [place], [place] [phone] Jennifer Bernardo 07/14/2024 Documentation [facility] [address] [place], [place] [phone] Jennifer Bernardo 07/13/2024 12:26 PM VEGETABLE CANNER - 07/18/2024 8:20 AM VEGETABLE CANNER Hospital Encounter [facility] [address] [place] [address] Ravinder Muir Jr., MD Singh, Supriya, MD Nikolic, Jelena, MD Sinha, Chandni, MD Alcohol abuse (Primary Dx); Paroxysmal atrial fibrillation (CMS/HCC) (HCC) Discharge Disposition: Discharge to not defined facility 07/13/2024 11:30 AM VEGETABLE CANNER Lab [address] [phone] 07/13/2024 [facility] Enrollment [facility] [address] [place] [address] Vidal Smalls 07/11/2024 Documentation [facility] [address] [place] [address] Alayna Winter from Last 3 Months Immunizations Name Administration Dates Next Due Influenza, Quadrivalent, Spl it, Preservative Free, Intramuscular 06/22/2023 Tdap 05/15/2023 Medical History Medical History Date Comments Depression PTSD (post-traumatic stress disorder) Hypertension Social History Tobacco Use Types Packs/Day Years Used Date Smoking Tobacco: Never Tobacco Cessation:Counseling Given: Not Answered Alcohol Use Standard Drinks/Week Comments Yes 0 (1 standard drink = 0.6 oz pur e alcohol) [facility] Utilities Answer Date Recorded In the past 12 months has e [employer], gas, oil, or water [employer] threatened to shut off services in your home? No 09/22/2023 Social Connection and Isolat ion Panel [NHANES] Answer Date Recorded In a typical week, how many times do you talk on the phone with family, friends, or neighbors? More than three times a week 09/22/2023 How often do you get togethe r with friends or relatives? Three times a week 09/22/2023 How often do you attend chur ch or jehovah's witness services? Never 09/22/2023 Do you belong to any clubs o r organizations such as amish groups, unions, fraternal or athletic groups, or school groups? No 09/22/2023 How often do you attend meet ings of the clubs or organizations you belong to? Never 09/22/2023 Are you , , di vorced, , never , or living with a partner? 09/22/2023 AUDIT-C Answer Date Recorded Q1: How often do you have a drink containing alcohol? 4 or more times a week 07/13/2024 Q2: How many drinks containi ng alcohol do you have on a typical day when you are drinking? 5 or 6 Q3: How often do you have si x or more drinks on one occasion? Less than monthly 07/13/2024 Overall Financial Resource Strain (CARDIA) Answe r Date Recorded How hard is it for you to pa y for the very basics like food, housing, medical care, and heating? Not very hard 09/22/2023 Hunger Vital Sign Answer Date Recorded Within the past 12 months, y ou worried that your food would run out before you got the money to buy more. Never true 09/22/19 24 Within the past 12 months, t he food you bought just didn't last and you didn't have money to get more. Never true 09/22/2023 PRAPARE - Transportation Answer Date Re corded In the past 12 months, has l ack of transportation kept you from medical appointments or from getting medications? No 09/2023 In the past 12 months, has l ack of transportation kept you from meetings, work, or from getting things needed for daily living? No 09/22/2023 Housing Stability Vital Sign Answer Ifeanyi e Recorded In the last 12 months, was t here a time when you were not able to pay the mortgage or rent on time? No 09/22/2023 In the last 12 months, how many places have you lived? 2 09/22/2023 In the last 12 months, was t here a time when you did not have a steady place to sleep or slept in a halfway (including now)? No 09/22/2023 Personal Safety Answer Date Recorded Have you ever been in or are you currently in a harmful physical or emotional relationship or is someone making you feel afraid or unsafe? Denies 07/13/2024 Sex and Gender Information Value Date Recorded Sex Assigned at Not on file Legal Sex Male 10:42 PM CDT Gender Identity Not on file Sexual Orientation Not on file Obstetrics History Last Filed Vital Signs Vital Sign Reading Time Taken Comments Blood Pressure 129/82 07/18/2024 7:23 AM VEGETABLE CANNER Pulse 87 07/18/2024 7:23 AM VEGETABLE CANNER Temperature 36.8 ??C (98.2 ??F) 07/18/2024 7:23 AM CS T Respiratory Rate 18 07/18/2024 7:23 AM VEGETABLE CANNER Oxygen Saturation 91% 07/18/2024 7:23 AM VEGETABLE CANNER Inhaled Oxygen Concentration - - Weight 142.2 kg (313 lb 7.9 oz) 07/13/2024 3:03 PM VEGETABLE CANNER Height 177.8 cm (5' 10 ) 07/13/2024 3:03 PM VEGETABLE CANNER Body Mass Index 44.98 07/13/2024 3:03 PM VEGETABLE CANNER Plan of Treatment Health Maintenance Due Date Last Done Comments Colon Cancer Screening-Colonoscopy 1962 Depression Screening 1962 Prostate Cancer Screening-PSA 1962 Hepatitis B Screening 1980 Regular Well Visit/Exam 18-64 1980 Zoster Vaccine (1 of 2) 2012 Pneumococcal vaccine <65 (2 of 2 - PCV) 02/15/2015 02/15/2014, 02/21/2009 Covid-19 Vaccine (3 - 2023-2 5 season) 2024 10/16/2020, 09/11/2020 Influenza Vaccine (#1) 2024 , 06/16/2022, 03/14/2019, Additional history exists DTaP/Tdap/Td Vaccine (3 - Td or Tdap) 05/15/2033 05/15/2023, 02/18/2014 Hepatitis C Screening Completed 07/13/2024 Procedures Procedure Name Priority Date/Time Associated Diagnosis Comments EGFR Routine 07/17/2024 5:25 AM VEGETABLE CANNER COMPREHENSIVE METABOLIC PANEL Routine 07/17/2024 5:25 AM VEGETABLE CANNER DIFFERENTIAL AUTO Routine 07/16/2024 8:1 0 AM VEGETABLE CANNER CBC WITH AUTO DIFFERENTIAL Routine 07/16/2024 8:10 AM VEGETABLE CANNER PRO B-TYPE NATRIURETIC PEPTIDE Add-On 07/16/2024 4:34 AM VEGETABLE CANNER EGFR Routine 07/16/2024 4:34 AM VEGETABLE CANNER COMPREHENSIVE METABOLIC PANEL Routine 07/16/2024 4:34 AM VEGETABLE CANNER EGFR Routine 07/15/2024 9:14 AM VEGETABLE CANNER DIFFERENTIAL AUTO Routine 07/15/2024 9:1 4 AM VEGETABLE CANNER CBC WITH AUTO DIFFERENTIAL Routine 07/15/2024 9:14 AM VEGETABLE CANNER COMPREHENSIVE METABOLIC PANEL Routine 07/15/2024 9:14 AM VEGETABLE CANNER EGFR Routine 07/14/2024 5:15 AM VEGETABLE CANNER DIFFERENTIAL AUTO Routine 07/14/2024 5:1 5 AM VEGETABLE CANNER CBC WITH AUTO DIFFERENTIAL Routine 07/14/2024 5:15 AM VEGETABLE CANNER COMPREHENSIVE METABOLIC PANEL Routine 07/14/2024 5:15 AM VEGETABLE CANNER ETHANOL STAT 07/13/2024 3:01 PM VEGETABLE CANNER APTT STAT 07/13/2024 3:01 PM VEGETABLE CANNER PROTIME-INR STAT 07/13/2024 3:01 PM VEGETABLE CANNER LIPASE STAT 07/13/2024 3:01 PM VEGETABLE CANNER AMYLASE STAT 07/13/2024 3:01 PM VEGETABLE CANNER MAGNESIUM Routine 07/13/2024 3:01 PM VEGETABLE CANNER HIV 1/2 ANTIBODY PLUS P24 ANTIGEN Routine 07/13/2024 3:01 PM VEGETABLE CANNER HEPATITIS C ANTIBODY Routine 07/13/2024 3:01 PM VEGETABLE CANNER EGFR Routine 07/13/2024 10:55 AM VEGETABLE CANNER DRUGS OF ABUSE SCREEN, URINE WITHOUT CONFIRMATION Routine 07/13/2024 10:55 AM VEGETABLE CANNER COMPREHENSIVE METABOLIC PANEL Routine 07/13/2024 10:55 AM VEGETABLE CANNER CBC WITHOUT DIFFERENTIAL Routine 07/13/2024 10:55 AM VEGETABLE CANNER from Last 3 Months Results * eGFR (07/17/2024 5:25 AM VEGETABLE CANNER) eGFR >90 >=60 mL/min/1. 73 m2 Comment: Interpretive Data Reference Interval Normal ?>/= 90 mL/min/1.73m2 Mildly decreased* ? 60 - 89 mL/min/1.73m2 Mildly to moderately decreased ?45 - 59 mL/min/1.73m2 Moderately to severely decreased ??30 - 44 mL/min/1.73m2 Severely decreased ?15 - 29 mL/min/1.73m2 Kidney Failure ?< 15 ??mL/min/1.73m2 *Relative to young adult level Estimated glomerular filtration rate is determined by the 2020 CKD-EPI equation recommended by the National Kidney Foundation (A Unifying Approach to GFR Estimation: Recommendations of the NKF-ASK Task Force on Reassessing the Inclusion of Race in Diagnosing Kidney Disease, JASN 2020). The CKD-EPI equation should not be used for patients with unstable renal function and has not been validated in children and those over 70. Current interpretive data was last reviewed 2021. Blood 07/17/2024 5:25 AM VEGETABLE CANNER 07/17/2024 6:16 AM VEGETABLE CANNER us Barbara Stephen MD LAB BLOOD ORDERABLES Final Resu lt [facility] ([place]) 1 [facility] Department [place] [address] * Comprehensive metabolic panel (07/17/2024 5:25 AM VEGETABLE CANNER) Sodium 138 135 - 145 mmol/L Potassium, pl 4.3 3.3 - 4.9 mmol/L [facility]) Chloride 103 97 - 110 mmol/L [facility] CO2 24 22 - 32 mmol/L [facility] Anion gap 11 2 - 15 mmol/L [facility] BUN 15 6 - 25 mg/dL [facility]) Creatinine 0.85 0.80 - 1.30 mg/dL [facility] Glucose 112 70 - 199 mg/dL [facility]) Comment: Interpretive Data Fasting glucose >/= 126 mg/dl is diagnostic for diabetes. ?? Fasting is defined as no caloric intake for at least 8 hours. Fasting glucose between 100 mg/dl to 125 mg/dl is diagnostic of prediabetes. In a patient with classic symptoms of hyperglycemia or hyperglycemic crisis, a random glucose >/= 200 mg/dl is diagnostic for diabetes. In the absence of unequivocal hyperglycemia, results should be confirmed by repeat testing. The classification and Diagnosis of Diabetes Diabetes Care 202; 46: S19-S40. Current interpretive data was last revised 2022. Calcium 9.1 8.5 - 10.3 mg/dL [facility]) Bilirubin, total 0.4 0.1 - 1.2 mg/dL [facility] ([facility]) Protein, pl 6.8 6.5 - 8.5 g/dL [facility]) Albumin 3.8 3.5 - 5.0 g/dL [facility]) Alk phos 71 40 - 130 Units/L [facility] ALT 25 7 - 55 Units/L [facility] AST 24 10 - 50 Units/L [facility]) Blood 07/17/2024 5:25 AM VEGETABLE CANNER 07/17/2024 6:16 AM VEGETABLE CANNER us Barbara Stephen MD LAB BLOOD ORDERABLES Final Resu lt [facility] 1 [facility] Department [place] [address] * Differential, auto (07/16/2024 8:10 AM VEGETABLE CANNER) Neutrophil abs 2.0 1.5 - 6.5 K/cumm Imm gran abs 0.1 0.0 - 0.1 K/cumm [facility] ([facility]) Lymphocyte abs 2.4 0.8 - 3.3 K/cumm [facility] ([facility]) Monocyte abs 0.8 0.2 - 0.8 K/cumm [facility] ([facility]) Eosinophil abs 0.2 0.0 - 0.5 K/cumm [facility] ([facility]) Basophil abs 0.1 0.0 - 0.1 K/cumm [facility] ([facility]) Neutrophil pct 35.9 % [facility]) Comment: Interpretive Data Percent cell count reference ranges are not reported, since discordance with absolute values may lead to misinterpretation of CBC data. Current Interpretive Data was last revised on 2017. Imm gran pct 1.4 % [facility] ([facility]) Comment: Interpretive Data Percent cell count reference ranges are not reported, since discordance with absolute values may lead to misinterpretation of CBC data. Current Interpretive Data was last revised on 2017. Lymphocyte pct 42.9 % [facility] ([facility]) Comment: Interpretive Data Percent cell count reference ranges are not reported, since discordance with absolute values may lead to misinterpretation of CBC data. Current Interpretive Data was last revised on 2017. Monocyte pct 14.9 % [facility] ([facility]) Comment: Interpretive Data Percent cell count reference ranges are not reported, since discordance with absolute values may lead to misinterpretation of CBC data. Current Interpretive Data was last revised on 2017. Eosinophil pct 2.7 % [facility] ([facility] Comment: Interpretive Data Percent cell count reference ranges are not reported, since discordance with absolute values may lead to misinterpretation of CBC data. Current Interpretive Data was last revised on 2017. Basophil pct 2.2 % [facility] ([facility]) Comment: Interpretive Data Percent cell count reference ranges are not reported, since discordance with absolute values may lead to misinterpretation of CBC data. Current Interpretive Data was last revised on 2017. Blood 07/16/2024 8:10 AM VEGETABLE CANNER 07/16/2024 8:42 AM VEGETABLE CANNER Raquel Vasquez MD LAB BLOOD ORDERABLES Final Res ult Performing Organization Address City/[facility]/ZIP Co de Phone Number [facility] ([facility]) 1 [facility] Department [place] [address] * (ABNORMAL) CBC with auto differential (07/16/2024 8:10 AM VEGETABLE CANNER) WBC 5.6 3.8 - 9.9 K/cumm Hgb 14.2 13.0 - 17.5 g/dL [facility] Hct 44.9 38.9 - 50.3 % [facility] Plt 199 150 - 400 K/cumm [facility] MPV 10.8 9.1 - 12.3 fL [facility] RBC 4.63 4.30 - 5.80 M/cumm [facility] MCV 97.0(H) 81.3 - 96.4 fL [facility] Comment:MCV delta possibly d ue to low sample volume. MCH 30.7 27.1 - 33.3 pg [facility] MCHC 31.6(L) 32.3 - 35.7 g/dL [facility] RDW CV 13.1 11.1 - 14.9 % [facility] RDW SD 46.7 35.7 - 48.1 fL [facility] NRBC abs 0.00 0.00 - 0.01 K/cumm [facility] Blood 07/16/2024 8:10 AM VEGETABLE CANNER 07/16/2024 8:42 AM VEGETABLE CANNER Raquel Vasquez MD LAB BLOOD ORDERABLES Final Res ult [facility] ([facility]) 1 [facility] Department [place] [address] * eGFR (07/16/2024 4:34 AM VEGETABLE CANNER) eGFR >90 >=60 mL/min/1. 73 m2 Comment: Interpretive Data Reference Interval Normal ?>/= 90 mL/min/1.73m2 Mildly decreased* ? 60 - 89 mL/min/1.73m2 Mildly to moderately decreased ?45 - 59 mL/min/1.73m2 Moderately to severely decreased ??30 - 44 mL/min/1.73m2 Severely decreased ?15 - 29 mL/min/1.73m2 Kidney Failure ?< 15 ??mL/min/1.73m2 *Relative to young adult level Estimated glomerular filtration rate is determined by the 2020 CKD-EPI equation recommended by the National Kidney Foundation (A Unifying Approach to GFR Estimation: Recommendations of the NKF-ASK Task Force on Reassessing the Inclusion of Race in Diagnosing Kidney Disease, JASN 2020). The CKD-EPI equation should not be used for patients with unstable renal function and has not been validated in children and those over 70. Current interpretive data was last reviewed 2021. Blood 07/16/2024 4:34 AM VEGETABLE CANNER 07/16/2024 5:20 AM VEGETABLE CANNER us Barbara Stephen MD LAB BLOOD ORDERABLES Final Resu lt Performing Organization Address City/[facility]/ZIP Co de Phone Number [facility] ([place]) 1 [facility] Department [place] [employer] [place] [address] * Pro B-type natriuretic peptide (07/16/2024 4:34 AM VEGETABLE CANNER) NT-proBNP 197 <=300 pg/mL Comment: Interpretive Comments: A. Dyspnea in Acute Care Setting All Ages: ?< 300 pg/ml, acute heart failure unlikely. < 50 yrs: ?300 - 450 pg/ml, further investigation warranted. ? > 450 pg/ml, acute heart failure likely. 50 - 74 yrs: ? 300 - 900 pg/ml, further investigation warranted. ? > 900 pg/ml, acute heart failure likely . > or = 75 yrs: ? 450 - 1800 pg/ml, further investigation warranted. ? > 1800 pg/ml, acute heart failure likely. B. Non-acute Setting < 75 yrs ? < 125 pg/ml, rules out heart failure. ? > or = 125 pg/ml, further investigation warranted. > or = 75 yrs ?< 450 pg/ml, rules out heart failure. ? > or = 450 pg/ml, further investigation warranted. - Knowledge of each individual patient's NT-proBNP range may be more useful than using similar cut-points for every patient. Please note that marked elevations in NT-proBNP levels may be observed in state other than Left Ventricular Congestive Failure, including: acute coronary syndromes, right heart strain/failure (including pulmonary embolism and cor pulmonale), critical illness, renal failure, as well as advanced age. - References: 1. Leonard HURLEY et.al. Eur Heart J. 2006:27:330-337. 2. Lois RW, Wood RUSSO. J. AM [place] Cardiol: Cardiovasc Imag. 2009;2: 216- 225. Interpretive Data Last Revised Date: 2018. Blood 07/16/2024 4:34 AM VEGETABLE CANNER 07/16/2024 5:57 PM VEGETABLE CANNER us Raquel Vasquez MD LAB BLOOD ORDERABLES Final Res ult [facility] ([facility]) 1 [facility] Department [place] [address] * (ABNORMAL) Comprehensive metabolic panel (07/16/2024 4:34 AM VEGETABLE CANNER) Sodium 130(L) 135 - 145 mmol/L Potassium, pl 5.2(H) 3.3 - 4.9 mmol/L [facility] ([facility]) Comment:Slightly Hemolyzed S pecimen. Results may be affected. Chloride 102 97 - 110 mmol/L [facility] ([facility]) CO2 18(L) 22 - 32 mmol/L [facility] Anion gap 10 2 - 15 mmol/L [facility] BUN 15 6 - 25 mg/dL [facility]) Creatinine 0.83 0.80 - 1.30 mg/dL [facility] Glucose 102 70 - 199 mg/dL [facility] ([facility]) Comment: Interpretive Data Fasting glucose >/= 126 mg/dl is diagnostic for diabetes. ?? Fasting is defined as no caloric intake for at least 8 hours. Fasting glucose between 100 mg/dl to 125 mg/dl is diagnostic of prediabetes. In a patient with classic symptoms of hyperglycemia or hyperglycemic crisis, a random glucose >/= 200 mg/dl is diagnostic for diabetes. In the absence of unequivocal hyperglycemia, results should be confirmed by repeat testing. The classification and Diagnosis of Diabetes Diabetes Care 2021; 46: S19-S40. Current interpretive data was last revised 2022. Calcium 9.1 8.5 - 10.3 mg/dL [facility]) Bilirubin, total 0.6 0.1 - 1.2 mg/dL [facility] ([facility]) Protein, pl 7.1 6.5 - 8.5 g/dL [facility]) Albumin 3.5 3.5 - 5.0 g/dL [facility] ([facility]) Alk phos 71 40 - 130 Units/L [facility] ALT 20 7 - 55 Units/L [facility] ([facility]) Comment:Hemolysis present. R esults may be affected. AST 36 10 - 50 Units/L [facility]) Comment: Hemolysis present. ??Results may be affected. Slightly Hemolyzed Specimen Blood 07/16/2024 4:34 AM VEGETABLE CANNER 07/16/2024 4:54 AM VEGETABLE CANNER Barbara Stephen MD LAB BLOOD ORDERABLES Final Resu lt [facility] ([place] 1 [facility] Department [place] [address] * eGFR (07/15/2024 9:14 AM VEGETABLE CANNER) eGFR >90 >=60 mL/min/1. 73 m2 Comment: Interpretive Data Reference Interval Normal ?>/= 90 mL/min/1.73m2 Mildly decreased* ? 60 - 89 mL/min/1.73m2 Mildly to moderately decreased ?45 - 59 mL/min/1.73m2 Moderately to severely decreased ??30 - 44 mL/min/1.73m2 Severely decreased ?15 - 29 mL/min/1.73m2 Kidney Failure ?< 15 ??mL/min/1.73m2 *Relative to young adult level Estimated glomerular filtration rate is determined by the 2020 CKD-EPI equation recommended by the National Kidney Foundation (A Unifying Approach to GFR Estimation: Recommendations of the NKF-ASK Task Force on Reassessing the Inclusion of Race in Diagnosing Kidney Disease, JASN 2020). The CKD-EPI equation should not be used for patients with unstable renal function and has not been validated in children and those over 70. Current interpretive data was last reviewed 2021. Blood 07/15/2024 9:14 AM VEGETABLE CANNER 07/15/2024 9:39 AM VEGETABLE CANNER us Barbara Stephen MD LAB BLOOD ORDERABLES Final Resu lt [facility] ([place]) 1 [facility] Department [place] [address] * Differential, auto (07/15/2024 9:14 AM VEGETABLE CANNER) Neutrophil abs 2.5 1.5 - 6.5 K/cumm Imm gran abs 0.1 0.0 - 0.1 K/cumm [facility] ([place]) Lymphocyte abs 2.4 0.8 - 3.3 K/cumm [facility] ([place]) Monocyte abs 0.8 0.2 - 0.8 K/cumm [facility] ([place]) Eosinophil abs 0.2 0.0 - 0.5 K/cumm [facility] ([place]) Basophil abs 0.1 0.0 - 0.1 K/cumm [facility] ([place]) Neutrophil pct 41.7 % [facility] ([place]) Comment: Interpretive Data Percent cell count reference ranges are not reported, since discordance with absolute values may lead to misinterpretation of CBC data. Current Interpretive Data was last revised on 2017. Imm gran pct 1.8 % [facility] ([place]) Comment: Interpretive Data Percent cell count reference ranges are not reported, since discordance with absolute values may lead to misinterpretation of CBC data. Current Interpretive Data was last revised on 2017. Lymphocyte pct 38.9 % [facility] ([place]) Comment: Interpretive Data Percent cell count reference ranges are not reported, since discordance with absolute values may lead to misinterpretation of CBC data. Current Interpretive Data was last revised on 2017. Monocyte pct 13.8 % [facility] ([place]) Comment: Interpretive Data Percent cell count reference ranges are not reported, since discordance with absolute values may lead to misinterpretation of CBC data. Current Interpretive Data was last revised on 2017. Eosinophil pct 2.6 % [facility] ([place]) Comment: Interpretive Data Percent cell count reference ranges are not reported, since discordance with absolute values may lead to misinterpretation of CBC data. Current Interpretive Data was last revised on 2017. Basophil pct 1.2 % [facility] ([place]) Comment: Interpretive Data Percent cell count reference ranges are not reported, since discordance with absolute values may lead to misinterpretation of CBC data. Current Interpretive Data was last revised on 2017. Blood 07/15/2024 9:14 AM VEGETABLE CANNER 07/15/2024 9:39 AM VEGETABLE CANNER us Barbara Stephen MD LAB BLOOD ORDERABLES Final Resu lt Performing Organization Address City/[facility]/ZIP Co de Phone Number [facility] ([place]) 1 [facility] Department [place] [address] * CBC with auto differential (07/15/2024 9:14 AM VEGETABLE CANNER) WBC 6.1 3.8 - 9.9 K/cumm Hgb 14.4 13.0 - 17.5 g/dL [facility] ([place]) Hct 43.2 38.9 - 50.3 % [facility] ([place]) Plt 223 150 - 400 K/cumm [facility] ([place]) MPV 9.3 9.1 - 12.3 fL [facility] ([place]) RBC 4.70 4.30 - 5.80 M/cumm [facility] ([place]) MCV 91.9 81.3 - 96.4 fL [facility] ([place]) MCH 30.6 27.1 - 33.3 pg [facility] ([place]) MCHC 33.3 32.3 - 35.7 g/dL [facility] ([place]) RDW CV 13.0 11.1 - 14.9 % [facility] ([place]) RDW SD 44.1 35.7 - 48.1 fL [facility] ([facility]) NRBC abs 0.00 0.00 - 0.01 K/cumm [facility] ([place]) Blood 07/15/2024 9:14 AM VEGETABLE CANNER 07/15/2024 9:39 AM VEGETABLE CANNER us Barbara Stephen MD LAB BLOOD ORDERABLES Final Resu lt [facility] ([facility]) 1 [facility] Department [place] [address] * Comprehensive metabolic panel (07/15/2024 9:14 AM VEGETABLE CANNER) Sodium 136 135 - 145 mmol/L Potassium, pl 4.2 3.3 - 4.9 mmol/L [facility] ([place]) Chloride 100 97 - 110 mmol/L [facility] ([facility]) CO2 24 22 - 32 mmol/L [facility] ([facility]) Anion gap 12 2 - 15 mmol/L [facility] ([facility]) BUN 14 6 - 25 mg/dL [facility] ([facility]) Creatinine 0.88 0.80 - 1.30 mg/dL [facility] ([facility]) Glucose 125 70 - 199 mg/dL [facility] ([facility]) Comment: Interpretive Data Fasting glucose >/= 126 mg/dl is diagnostic for diabetes. ?? Fasting is defined as no caloric intake for at least 8 hours. Fasting glucose between 100 mg/dl to 125 mg/dl is diagnostic of prediabetes. In a patient with classic symptoms of hyperglycemia or hyperglycemic crisis, a random glucose >/= 200 mg/dl is diagnostic for diabetes. In the absence of unequivocal hyperglycemia, results should be confirmed by repeat testing. The classification and Diagnosis of Diabetes Diabetes Care 2021; 46: S19-S40. Current interpretive data was last revised 2022. Calcium 9.0 8.5 - 10.3 mg/dL [facility] ([facility]) Bilirubin, total 0.6 0.1 - 1.2 mg/dL [facility] ([facility]) Protein, pl 6.8 6.5 - 8.5 g/dL [facility] ([place]) Albumin 3.7 3.5 - 5.0 g/dL [facility] ([facility]) Alk phos 71 40 - 130 Units/L [facility] ([facility]) ALT 19 7 - 55 Units/L [facility] ([place]) AST 22 10 - 50 Units/L [facility] ([facility]) Blood 07/15/2024 9:14 AM VEGETABLE CANNER 07/15/2024 9:39 AM VEGETABLE CANNER us Barbara Stephen MD LAB BLOOD ORDERABLES Final Resu lt Performing Organization Address City/[facility]/ZIP Co de Phone Number [facility] ([place]) 1 [facility] Department [place] [address] * eGFR (07/14/2024 5:15 AM VEGETABLE CANNER) [facility] eGFR >90 >=60 mL/min/1. 73 m2 Comment: Interpretive Data Reference Interval Normal ?>/= 90 mL/min/1.73m2 Mildly decreased* ? 60 - 89 mL/min/1.73m2 Mildly to moderately decreased ?45 - 59 mL/min/1.73m2 Moderately to severely decreased ??30 - 44 mL/min/1.73m2 Severely decreased ?15 - 29 mL/min/1.73m2 Kidney Failure ?< 15 ??mL/min/1.73m2 *Relative to young adult level Estimated glomerular filtration rate is determined by the 2020 CKD-EPI equation recommended by the National Kidney Foundation (A Unifying Approach to GFR Estimation: Recommendations of the NKF-ASK Task Force on Reassessing the Inclusion of Race in Diagnosing Kidney Disease, JASN 202). The CKD-EPI equation should not be used for patients with unstable renal function and has not been validated in children and those over 70. Current interpretive data was last reviewed 2021. Blood 07/14/2024 5:15 AM VEGETABLE CANNER 07/14/2024 6:08 AM VEGETABLE CANNER us Barbara Stephen MD LAB BLOOD ORDERABLES Final Resu lt [facility] ([place]) 1 [facility] Department [place] [address] * Differential, auto (07/14/2024 5:15 AM VEGETABLE CANNER) Neutrophil abs 2.3 1.5 - 6.5 K/cumm Imm gran abs 0.1 0.0 - 0.1 K/cumm [facility] ([facility]) Lymphocyte abs 1.8 0.8 - 3.3 K/cumm [facility] ([facility]) Monocyte abs 0.8 0.2 - 0.8 K/cumm [facility] ([facility]) Eosinophil abs 0.2 0.0 - 0.5 K/cumm [facility] ([facility]) Basophil abs 0.1 0.0 - 0.1 K/cumm [facility] ([facility]) Neutrophil pct 43.3 % [facility] ([place]) Comment: Interpretive Data Percent cell count reference ranges are not reported, since discordance with absolute values may lead to misinterpretation of CBC data. Current Interpretive Data was last revised on 2017. Imm gran pct 2.3 % [facility] ([facility]) Comment: Interpretive Data Percent cell count reference ranges are not reported, since discordance with absolute values may lead to misinterpretation of CBC data. Current Interpretive Data was last revised on 2017. Lymphocyte pct 33.9 % [facility] ([place]) Comment: Interpretive Data Percent cell count reference ranges are not reported, since discordance with absolute values may lead to misinterpretation of CBC data. Current Interpretive Data was last revised on 2017. Monocyte pct 15.3 % [facility] ([place]) Comment: Interpretive Data Percent cell count reference ranges are not reported, since discordance with absolute values may lead to misinterpretation of CBC data. Current Interpretive Data was last revised on 2017. Eosinophil pct 2.9 % [facility] ([facility]) Comment: Interpretive Data Percent cell count reference ranges are not reported, since discordance with absolute values may lead to misinterpretation of CBC data. Current Interpretive Data was last revised on 2017. Basophil pct 2.3 % [facility] ([facility]) Comment: Interpretive Data Percent cell count reference ranges are not reported, since discordance with absolute values may lead to misinterpretation of CBC data. Current Interpretive Data was last revised on 2017. Blood 07/14/2024 5:15 AM VEGETABLE CANNER 07/14/2024 6:07 AM VEGETABLE CANNER us Barbara Stephen MD LAB BLOOD ORDERABLES Final Resu lt [facility] ([facility]) 1 [facility] Department [place] [address] * (ABNORMAL) CBC with auto differential (07/14/2024 5:15 AM VEGETABLE CANNER) WBC 5.2 3.8 - 9.9 K/cumm Hgb 14.9 13.0 - 17.5 g/dL [facility] ([facility]) Hct 46.8 38.9 - 50.3 % [facility] ([facility]) Plt 198 150 - 400 K/cumm [facility] ([facility]) MPV 9.4 9.1 - 12.3 fL [facility] ([facility]) RBC 4.83 4.30 - 5.80 M/cumm [facility] ([place]) MCV 96.9(H) 81.3 - 96.4 fL [facility] ([facility]) MCH 30.8 27.1 - 33.3 pg [facility] ([facility]) MCHC 31.8(L) 32.3 - 35.7 g/dL [facility] ([place]) RDW CV 13.3 11.1 - 14.9 % [facility] ([place]) RDW SD 47.5 35.7 - 48.1 fL [facility] ([facility]) NRBC abs 0.00 0.00 - 0.01 K/cumm [facility] ([facility]) Blood 07/14/2024 5:15 AM VEGETABLE CANNER 07/14/2024 6:07 AM VEGETABLE CANNER us Barbara Stephen MD LAB BLOOD ORDERABLES Final Resu lt [facility] ([place]) 1 [facility] Department [place] [address] * Comprehensive metabolic panel (07/14/2024 5:15 AM VEGETABLE CANNER) Sodium 135 135 - 145 mmol/L Potassium, pl 4.7 3.3 - 4.9 mmol/L [facility] ([facility]) Chloride 102 97 - 110 mmol/L [facility] ([place]) CO2 22 22 - 32 mmol/L [facility] ([place]) Anion gap 12 2 - 15 mmol/L [facility] ([place]) BUN 13 6 - 25 mg/dL [facility] ([place]) Creatinine 0.85 0.80 - 1.30 mg/dL [facility] ([place]) Glucose 104 70 - 199 mg/dL [facility] ([facility]) Comment: Interpretive Data Fasting glucose >/= 126 mg/dl is diagnostic for diabetes. ?? Fasting is defined as no caloric intake for at least 8 hours. Fasting glucose between 100 mg/dl to 125 mg/dl is diagnostic of prediabetes. In a patient with classic symptoms of hyperglycemia or hyperglycemic crisis, a random glucose >/= 200 mg/dl is diagnostic for diabetes. In the absence of unequivocal hyperglycemia, results should be confirmed by repeat testing. The classification and Diagnosis of Diabetes Diabetes Care 2021; 46: S19-S40. Current interpretive data was last revised 2022. Calcium 9.2 8.5 - 10.3 mg/dL [facility] ([facility]) Bilirubin, total 1.0 0.1 - 1.2 mg/dL [facility] ([place]) Protein, pl 7.1 6.5 - 8.5 g/dL [facility] ([place]) Albumin 3.9 3.5 - 5.0 g/dL [facility] ([place]) Alk phos 77 40 - 130 Units/L [facility] ([place]) ALT 19 7 - 55 Units/L [facility] ([place]) AST 21 10 - 50 Units/L [facility] ([facility]) Blood 07/14/2024 5:15 AM VEGETABLE CANNER 07/14/2024 6:08 AM VEGETABLE CANNER us Barbara Stephen MD LAB BLOOD ORDERABLES Final Resu lt [facility] ([facility]) 1 [facility] Department [place] [address] * HIV 1/2 Antibody plus p24 Antigen Blood (07/13/2024 3:01 PM VEGETABLE CANNER) [facility] HIV 1/2 ab + p24 ag Nonreactive Nonreactive Comment: Nonreactive for HIV-1 antigen and HIV-1/HIV-2 antibodies. No laboratory evidence of HIV infection. If acute HIV infection is suspected, consider testing for HIV-1 RNA. Testing performed by: [facility], [address] [place] [address]., [id number] Blood 07/13/2024 3:01 PM VEGETABLE CANNER 07/13/2024 7:49 PM VEGETABLE CANNER Barbara Stephen MD LAB MICROBIOLOGY - [facility]AL [facility]DE [facility] Final Result Performing Organization Address City/[facility] Co de Phone Number [facility] MELISSA ([place]) 1 [facility] [place] [address] * Hepatitis C antibody Blood (07/13/2024 3:01 PM VEGETABLE CANNER) [facility] Hep C Ab Nonreactive Nonreactive Comment: Interpretive Data Nonreactive: Antibodies to HCV not detected. Does NOT exclude the possibility of recent exposure to HCV. Equivocal: Equivocal for HCV antibodies. Supplemental molecular testing will be automatically performed to determine infection status in accordance with current CDC screening recommendations. ?? Reactive: Positive for HCV antibodies. ??This may represent current or past HCV infection. Supplemental molecular testing will be automatically performed to determine ??current infection status in accordance with current CDC screening recommendations. Interpretive data was last revised on 2019. Testing performed by: [facility], [address] [place] [address]., [id number] Blood 07/13/2024 3:01 PM VEGETABLE CANNER 07/13/2024 7:49 PM VEGETABLE CANNER Barbara Stephen MD LAB MICROBIOLOGY - GENERAL ORDE RABLES Final Result Performing Organization Address City/[facility] Co de Phone Number [facility] ([place]) 1 [facility] [place] [address] * (ABNORMAL) aPTT (07/13/2024 3:01 PM VEGETABLE CANNER) [facility] aPTT 39(H) 28 - 38 sec [facility] ([place]) Comment: Interpretive Data Heparin therapeutic range: 66.0 - 100.0 seconds. Range based on correlation with therapeutic heparin activity range of 0.3 - 0.7 Units/mL. Current interpretive data was last revised on 2023. Blood 07/13/2024 3:01 PM VEGETABLE CANNER 07/13/2024 3:05 PM VEGETABLE CANNER Result [facility] Barbara Stephen MD LAB BLOOD ORDERABLES Final Resu lt Performing Organization Address City/[facility] Co de Phone Number [facility] ([place]) 1 [facility] [place] [address] * (ABNORMAL) Protime-INR (07/13/2024 3:01 PM VEGETABLE CANNER) PT 13.5(H) 9.7 - 13.0 sec [facility] ([place]) INR 1.24(H) 0.90 - 1.20 [facility] ([place]) Comment: Interpretive data Oral anticoagulant therapeutic ranges: Venous thromboembolism prophylaxis or treatment: 2.0-3.0 CARDIOLOGY Standard range: 2.0-3.0 High-intensity range: 2.5-3.5 Refer to indication-specific guidelines for appropriate target ranges for prosthetic heart valve replacement. Current interpretive data was last revised on 2019. Blood 07/13/2024 3:01 PM VEGETABLE CANNER 07/13/2024 3:05 PM VEGETABLE CANNER Babrara Stephen MD LAB BLOOD ORDERABLES Final Resu lt Performing Organization Address City/[facility] Co de Phone Number [facility] ([place]) 1 [facility] [employer] [place] [address] * Magnesium (07/13/2024 3:01 PM VEGETABLE CANNER) Magnesium 2.3 1.4 - 2.5 mg/dL Blood 07/13/2024 3:01 PM VEGETABLE CANNER 07/13/2024 3:05 PM VEGETABLE CANNER Barbara Stephen MD LAB BLOOD ORDERABLES Final Resu lt Performing Organization Address City/[facility]/ZIP Co de Phone Number [facility] ([place]) 1 [facility] [place] [address] * Lipase (07/13/2024 3:01 PM VEGETABLE CANNER) Lipase 26 10 - 99 Units/L Blood 07/13/2024 3:01 PM VEGETABLE CANNER 07/13/2024 3:05 PM VEGETABLE CANNER us Barbara Stephen MD LAB BLOOD ORDERABLES Final Resu lt Performing Organization Address City/[facility]/ZIP Co de Phone Number [facility] ([place]) 1 [facility] [place] [address] * (ABNORMAL) Amylase (07/13/2024 3:01 PM VEGETABLE CANNER) Amylase 19(L) 30 - 99 Units/L Blood 07/13/2024 3:01 PM VEGETABLE CANNER 07/13/2024 3:05 PM VEGETABLE CANNER us Barbara Stephen MD LAB BLOOD ORDERABLES Final Resu lt Performing Organization Address [facility] Co de Phone Number [facility] ([place]) 1 [facility] [place] [address] * Ethanol (07/13/2024 3:01 PM VEGETABLE CANNER) Ethanol <10 <=10 mg/dL Comment: Interpretive Data Legal limit of intoxication > or = 80 mg/dL Levels > or = 400 mg/dL are potentially TOXIC. Current interpretive data was last revised on 2018. Blood 07/13/2024 3:01 PM VEGETABLE CANNER 07/13/2024 3:05 PM VEGETABLE CANNER us Barbara Stephen MD LAB BLOOD ORDERABLES Final Resu lt [facility] ([place]) 1 [facility] [place] [address] * eGFR (07/13/2024 10:55 AM VEGETABLE CANNER) eGFR >90 >=60 mL/min/1. 73 m2 Comment: Interpretive Data Reference Interval Normal ?>/= 90 mL/min/1.73m2 Mildly decreased* ? 60 - 89 mL/min/1.73m2 Mildly to moderately decreased ?45 - 59 mL/min/1.73m2 Moderately to severely decreased ??30 - 44 mL/min/1.73m2 Severely decreased ?15 - 29 mL/min/1.73m2 Kidney Failure ?< 15 ??mL/min/1.73m2 *Relative to young adult level Estimated glomerular filtration rate is determined by the 2020 CKD-EPI equation recommended by the National Kidney Foundation (A Unifying Approach to GFR Estimation: Recommendations of the NKF-ASK Task Force on Reassessing the Inclusion of Race in Diagnosing Kidney Disease, JASN 2020). The CKD-EPI equation should not be used for patients with unstable renal function and has not been validated in children and those over 70. Current interpretive data was last reviewed 2021. Blood 07/13/2024 10:5 5 AM VEGETABLE CANNER 07/13/2024 11:21 AM VEGETABLE CANNER us Fariba Breen MD LAB BLOOD ORDERABLES Final Re sult [facility] ([place]) 1 [facility] Department [place] [address] * (ABNORMAL) Drugs of Abuse Screen, Urine without Confirmation (07/13/2024 10:55 AM VEGETABLE CANNER) Amphetamine, ur Not Detected CutOff 500ng/mL Comment: Interpretive Data - Amphetamines: ??Samples containing greater than 500 ng/mL d-methamphetamine ??or other cross-reacting amphetamine compounds are reported as positive. ??Amphetamine immunoassays are subject to significant false positive rates due to cross-reactivity of non-amphetamine drugs. Confirmatory testing required for definitive results. Current Interpretive Data was last reviewed 2023. Barbiturates, ur Not Detected CutOff 200ng/mL [facility] ([facility]) Comment: Interpretive Data - Barbiturates: ??Samples containing greater than 200 ng/mL secobarbital or other cross-reacting barbiturate compounds are reported as positive. ??False positive and false negative results are possible. Confirmatory testing required for definitive results. Current Interpretive Data was last reviewed 2023. Benzodiazepines, ur Not Detected CutOff 100ng/mL [facility] ([facility]) Comment: Interpretive Data - Benzodiazepines: ??Samples containing greater than 100 ng/mL nordiazepam or other cross-reacting compounds are reported as positive. False positive and false negative results are possible. Confirmatory testing required for definitive results. Current Interpretive Data was last reviewed 2023. Cannabinoids, ur Screen Positive, presumptive (A) CutOff 50 ng/mL [facility] ([place]) Comment: Interpretive Data - Cannabinoids: ??Samples containing greater than 50 ng/mL delta-9 THC -COOH or other cross-reacting compounds are reported as positive. ??False positive and false negative results are possible. ??Confirmatory testing required for definitive results. Current Interpretive Data was last reviewed 2023. Cocaine, ur Not Detected CutOff 150ng/mL [facility] ([place]) Comment: Interpretive Data - Cocaine: ??Samples containing greater than 150 ng/mL benzoylecgonine or other cross-reacting compounds are reported as positive. False positive and false negative results are possible. Confirmatory testing required for definitive results. Current Interpretive Data was last reviewed 2023. Fentanyl, Ur Not Detected CutOff 5 ng/mL [facility] ([place]) Comment: Interpretive Data - Fentanyl: ??Samples containing greater than 5 ng/mL norfentanyl, fentanyl, or other cross-reacting fentanyl compounds are reported as positive. False positive and false negative results are possible. Confirmatory testing required for definitive results. Current Interpretive Data was last reviewed 2023. Methadone, ur Not Detected CutOff 300ng/mL [facility] ([place]) Comment: Interpretive Data - Methadone: ??Samples containing greater than 300 ng/mL d,l-methadone or other cross-reacting compounds are reported as positive. ??False positive and false negative results are possible. Confirmatory testing required for definitive results. Current Interpretive Data was last reviewed 2023. Opiates, ur Not Detected CutOff 300ng/mL [facility] ([facility]) Comment: Interpretive Data - Opiates: ??Samples containing greater than 300 ng/mL morphine or other cross-reacting compounds are reported as positive. ??False positive and false negative results are possible. Confirmatory testing required for definitive results. Current Interpretive Data was last reviewed 2023. Oxycodone, ur Not Detected CutOff 100ng/mL [facility] ([place]) Comment: Interpretive Data - Oxycodone: ??Samples containing greater than 100 ng/mL oxycodone or other cross-reacting compounds are reported as ??positive. ??False positive and false negative results are possible. Confirmatory testing required for definitive results. Current Interpretive Data was last reviewed 2023. Phencyclidine, ur Not Detected CutOff 25 ng/mL [facility] ([facility]) Comment: Interpretive Data - Phencyclidine: ??Samples containing greater than 25 ng/mL phencyclidine or other cross-reacting compounds are reported as positive. ??False positive and false negative results are possible. Confirmatory testing required for definitive results. Current Interpretive Data was last reviewed 2023. Urine Creatinine 181 mg/dL [facility] ([place]) Comment: Interpretive Data Urine Creatinine: < 10 mg/dL is extremely dilute = or > 10 but < 20 mg/dL is dilute = or > 20 mg/dL is normal Current Interpretive Data was last revised on 2017. Urine 07/13/2024 10:5 5 AM VEGETABLE CANNER 07/13/2024 11:01 AM VEGETABLE CANNER Narrative [facility] ([place]) - 07/13/2024 11:31 AM VEGETABLE CANNER Drug of Abuse screening is performed by immunoassay for medical purposes only. ??This is not to be used for Pain Management purposes. us Fariba Breen MD LAB URINE ORDERABLES Final Re sult [facility] ([place]) 1 [facility] Department [place] [address] * CBC without differential (07/13/2024 10:55 AM VEGETABLE CANNER) Pathologist [facility] WBC 8.9 3.8 - 9.9 K/cumm Hgb 14.6 13.0 - 17.5 g/dL [facility] ([place]) Hct 44.2 38.9 - 50.3 % [facility] ([place]) Plt 241 150 - 400 K/cumm [facility] ([place]) MPV 9.2 9.1 - 12.3 fL [facility] ([place]) RBC 4.78 4.30 - 5.80 M/cumm [facility] ([place]) MCV 92.5 81.3 - 96.4 fL [facility] ([place]) MCH 30.5 27.1 - 33.3 pg [facility] ([place]) MCHC 33.0 32.3 - 35.7 g/dL [facility] ([place]) RDW CV 12.9 11.1 - 14.9 % [facility] ([place]) RDW SD 43.9 35.7 - 48.1 fL [facility] ([place]) NRBC abs 0.00 0.00 - 0.01 K/cumm [facility] ([place]) Blood 07/13/2024 10:5 5 AM VEGETABLE CANNER 07/13/2024 11:21 AM VEGETABLE CANNER Fariba Breen MD LAB BLOOD ORDERABLES Final Re sult [facility] ([place]) 1 [facility] Department [place] [address] * Comprehensive metabolic panel (07/13/2024 10:55 AM VEGETABLE CANNER) Pathologist [facility] Sodium 135 135 - 145 mmol/L Potassium, pl 4.2 3.3 - 4.9 mmol/L [facility] ([facility]) Chloride 98 97 - 110 mmol/L [facility] ([place]) CO2 25 22 - 32 mmol/L [facility] ([place]) Anion gap 13 2 - 15 mmol/L [facility] ([place]) BUN 12 6 - 25 mg/dL [facility] ([facility]) Creatinine 0.93 0.80 - 1.30 mg/dL [facility] ([facility]) Comment:Icteric sample, test results may be affected. Glucose 114 70 - 199 mg/dL [facility] ([facility]) Comment: Interpretive Data Fasting glucose >/= 126 mg/dl is diagnostic for diabetes. ?? Fasting is defined as no caloric intake for at least 8 hours. Fasting glucose between 100 mg/dl to 125 mg/dl is diagnostic of prediabetes. In a patient with classic symptoms of hyperglycemia or hyperglycemic crisis, a random glucose >/= 200 mg/dl is diagnostic for diabetes. In the absence of unequivocal hyperglycemia, results should be confirmed by repeat testing. The classification and Diagnosis of Diabetes Diabetes Care 2021; 46: S19-S40. Current interpretive data was last revised 2022. Calcium 9.0 8.5 - 10.3 mg/dL [facility] ([facility]) Bilirubin, total 1.1 0.1 - 1.2 mg/dL [facility] ([facility]) Protein, pl 7.0 6.5 - 8.5 g/dL [facility] ([place]) Albumin 4.2 3.5 - 5.0 g/dL [facility] ([facility]) Alk phos 81 40 - 130 Units/L [facility] ([facility]) ALT 18 7 - 55 Units/L [facility] ([facility]) AST 23 10 - 50 Units/L [facility] ([facility]) Blood 07/13/2024 10:5 5 AM VEGETABLE CANNER 07/13/2024 11:21 AM VEGETABLE CANNER us Fariba Breen MD LAB BLOOD ORDERABLES Final Re sult [facility] ([place]) 1 [facility] Department [place] [address] from Last 3 Months Insurance [facility] Member Subscriber Plan / Payer (Ef fective 2023-Present) Name:Peter Thibodeaux Relation to Subscriber:Self Name:Carlos Eduardo Peter Payer ID:[id number] (NAIC) Group ID:Not on file Type:MEDICAID RISK OTHER Address: ATTN: CLAIMS DEPT [address] [facility] [place] [id number] Member Subscriber Plan / Payer (Ef fective 2022-Present) Name:Peter Thibodeaux Relation to Subscriber:Self Name:Peter Thibodeaux Payer ID:[id number] (NAIC) Group ID:Not on file Type:MEDICAID RISK OTHER Address: ATTN: CLAIMS DEPT [address] [facility] [place] [id number] Advance Directives For more information, please contact: [phone] * Full Code (Latest Code Status on File) Date Activated Date Inactivated Comments 07/13/2024 2:06 PM 07/18/2024 12:47 PM * Full Code Date Activated Date Inactivated Comments 09/21/2023 6:45 PM 09/23/2023 7:51 PM * Full Code Date Activated Date Inactivated Comments 06/14/2023 8:11 PM 06/22/2023 5:39 PM Care Teams Relish Maker Relationship Specialty Start Date End Date Clinton Maddox MD [address] [facility] [place] [address] PCP - General Internal Medicine 06/14/23 Cilnton Maddox MD [address] [facility] [place] [address] Internal Medicine 06/14/23
--- OUTSIDE RECORDS SUMMARY | 2024-07-19 20:14 | XMS_ITS | CONTINUITY OF CARE DOCUMENT ---
Author Name sanya segundo Address Unknown Organization [facility] Address [address] [place] [address] Phone [phone] Care Team Providers Care Jerker Name Role Phone Teo RIVAS, Cooper Unavailable JOSSUE SANTOS MD Unavailable JOSSUE SANTOS MD Unavailable INSURANCE PROVIDERS Payer name Policy type / Coverage type Tiffany red republican ID [id number] [employer] (2) Medicaid [id number]
--- OUTSIDE RECORDS SUMMARY | 2024-07-19 20:14 | XMS_ITS | Referral Summary ---
Author Organization [facility] Address [address] [place] [address] Care Team Providers Care Swimming Instructor Name Role Phone Clinton Maddox MD Primary Care Provider [phone] Clinton Maddox MD Unavailable [phone] Encounters Date Type Department Care Team Description 07/13/2024 12:26 PM CARGOMAN - 07/18/2024 8:20 AM CARGOMAN Hospital Encounter [facility] [address] [place] [address] Ravinder Muir Jr., MD Singh, Supriya, MD Nikolic, Jelena, MD Sinha, Chandni, MD Alcohol abuse (Primary Dx); Paroxysmal atrial fibrillation (CMS/HCC) (HCC) Discharge Disposition: Discharge to not defined facility 07/17/2024 Documentation [facility] [address] [place], [place] [phone] Bernardo Jennifermarleny Randhawa 07/17/2024 Documentation [facility] [address] [place], [place] [phone] Bernardo, Jennifer E. 07/16/2024 [facility] WH Enrollment [facility] [address] [place], [place] [phone] Vidal Smalls 07/16/2024 Documentation [facility] [address] [place], [place] [phone] Alayna Winter 07/14/2024 Telephone [facility] [address] [place], [place] [phone] BernardoJennifer sotelo 07/14/2024 Documentation [facility] [address] [place], [place] [phone] BernardoJennifer georgeJimbo 07/13/2024 [facility] WH Enrollment [facility] [address] [place], [place] [phone] Vidal Smalls 07/13/2024 11:30 AM [facility] Lab [address] [phone] 07/11/2024 Documentation [facility] [address] [place] [address] Alayna Winter from Last 3 Months Allergies No known active allergies Medications DULoxetine [...] mouth daily 30 tablet 11 11/10/19 24 Active traZODone (DESYREL) 50 mg tablet Take 1 tablet (50 mg total) by mouth nightly Active dilTIAZem CD (CARDIZEM CD) 300 mg 24 hr capsule Take 1 capsule (300 mg total) by mouth daily 30 capsule 11 07/17/19 25 026 Active multivit smmjybak-giqn-Y A-calcium (THERA-M) 9 mg iron-400 mcg tabletIndicatio [...] mg total) by mouth daily 30 capsule 11 06/21/19 24 025 Discontinued ARIPiprazole (ABILIFY) 5 mg tablet [...] heart failure with p reserved ejection fraction ([facility]) 06/15/2023 Overview (07/21/2023): Treated for HFpEF in May 2023. Schizoaffective disorder ([facility]) 06/15/2023 Acute hypoxic respiratory failure 06/14/2023 COPD exacerbation 06/14/2023 Drug abuse ([facility]) 06/14/2023 Overview (07/21/2023): On cannabis and amphetamine, both of which can cause cardiac dysrhythmias. Hyponatremia 06/14/2023 Laceration of arm, right, mu ltiple sites, with tendon involvement, initial encounter 05/15/2023 Immunizations Name Administration Dates Next Due Influenza, Quadrivalent, Spl it, Preservative Free, Intramuscular 06/22/2023 Tdap 05/15/2023 Social History Tobacco Use Types Packs/Day Years Used Date Smoking Tobacco: Never Tobacco Cessation:Counseling Given: Not Answered Alcohol Use Standard Drinks/Week Comments Yes 0 (1 standard drink = 0.6 oz pur e alcohol) [facility] Utilities Answer Date Recorded In the past 12 months has HeTexted, gas, oil, or water [employer] threatened to shut off services in your [...] any clubs o r organizations such as uatsdin groups, unions, fraternal or athletic groups, or [...] place to sleep or slept in a half-way (including now)? No 09/22/2023 Personal Safety Answer [...] on file Sexual Orientation Not on file Last Filed Vital Signs Vital Sign Reading Time Taken Comments Blood Pressure 129/82 07/18/2024 7:23 AM CARGOMAN Pulse 87 07/18/2024 7:23 AM CARGOMAN Temperature 36.8 ??C (98.2 ??F) 07/18/2024 7:23 AM CS T Respiratory Rate 18 07/18/2024 7:23 AM CARGOMAN Oxygen Saturation 91% 07/18/2024 7:23 AM CARGOMAN Inhaled Oxygen Concentration - - Weight 142.2 kg (313 lb 7.9 oz) 07/13/2024 3:03 PM CARGOMAN Height 177.8 cm (5' 10 ) 07/13/2024 3:03 PM CARGOMAN Body Mass Index 44.98 07/13/2024 3:03 PM CARGOMAN Plan of Treatment Not on file Procedures Procedure Name Priority Date/Time Associated Diagnosis Comments EGFR Routine 07/17/2024 5:25 AM CARGOMAN COMPREHENSIVE METABOLIC PANEL Routine 07/17/2024 5:25 AM CARGOMAN DIFFERENTIAL AUTO Routine 07/16/2024 8:1 0 AM CARGOMAN CBC WITH AUTO DIFFERENTIAL Routine 07/16/2024 8:10 AM CARGOMAN PRO B-TYPE NATRIURETIC PEPTIDE Add-On 07/16/2024 4:34 AM CARGOMAN EGFR Routine 07/16/2024 4:34 AM CARGOMAN COMPREHENSIVE METABOLIC PANEL Routine 07/16/2024 4:34 AM CARGOMAN EGFR Routine 07/15/2024 9:14 AM CARGOMAN DIFFERENTIAL AUTO Routine 07/15/2024 9:1 4 AM CARGOMAN CBC WITH AUTO DIFFERENTIAL Routine 07/15/2024 9:14 AM CARGOMAN COMPREHENSIVE METABOLIC PANEL Routine 07/15/2024 9:14 AM CARGOMAN EGFR Routine 07/14/2024 5:15 AM CARGOMAN DIFFERENTIAL AUTO Routine 07/14/2024 5:1 5 AM CARGOMAN CBC WITH AUTO DIFFERENTIAL Routine 07/14/2024 5:15 AM CARGOMAN COMPREHENSIVE METABOLIC PANEL Routine 07/14/2024 5:15 AM CARGOMAN ETHANOL STAT 07/13/2024 3:01 PM CARGOMAN APTT STAT 07/13/2024 3:01 PM CARGOMAN PROTIME-INR STAT 07/13/2024 3:01 PM CARGOMAN LIPASE STAT 07/13/2024 3:01 PM CARGOMAN AMYLASE STAT 07/13/2024 3:01 PM CARGOMAN MAGNESIUM Routine 07/13/2024 3:01 PM CARGOMAN HIV 1/2 ANTIBODY PLUS P24 ANTIGEN Routine 07/13/2024 3:01 PM CARGOMAN HEPATITIS C ANTIBODY Routine 07/13/2024 3:01 PM CARGOMAN EGFR Routine 07/13/2024 10:55 AM CARGOMAN DRUGS OF ABUSE SCREEN, URINE WITHOUT CONFIRMATION Routine 07/13/2024 10:55 AM CARGOMAN COMPREHENSIVE METABOLIC PANEL Routine 07/13/2024 10:55 AM CARGOMAN CBC WITHOUT DIFFERENTIAL Routine 07/13/2024 10:55 AM CARGOMAN from Last 3 Months Results * eGFR (07/17/2024 5:25 AM CARGOMAN) eGFR >90 >=60 mL/min/1. 73 m2 Comment: [...] last reviewed 2021. Blood 07/17/2024 5:25 AM CARGOMAN 07/17/2024 6:16 AM CARGOMAN us Barbara Stephen MD LAB BLOOD ORDERABLES Final Resu lt [facility] ([place]) 1 [facility] Department of Laboratories [place], [place] [id number] * Comprehensive metabolic panel (07/17/2024 5:25 AM CARGOMAN) Sodium 138 135 - 145 mmol/L Potassium, pl 4.3 3.3 - 4.9 mmol/L [facility] Chloride 103 97 - 110 mmol/L [facility] ([facility]) CO2 24 22 - 32 mmol/L [facility] ([facility]) Anion gap 11 2 - 15 mmol/L [facility] ([facility]) BUN 15 6 - 25 mg/dL [facility] ([facility]) Creatinine 0.85 0.80 - 1.30 mg/dL [facility] ([facility]) Glucose 112 70 - 199 mg/dL [facility] ([facility]) Comment: Interpretive Data Fasting glucose [...] [facility] ([facility]) Blood 07/17/2024 5:25 AM CARGOMAN 07/17/2024 6:16 AM CARGOMAN us Barbara Stephen MD LAB BLOOD ORDERABLES Final Resu lt [facility] ([place]) 1 [facility] [place] [address] * Differential, auto (07/16/2024 8:10 AM CARGOMAN) Neutrophil abs 2.0 1.5 - 6.5 K/cumm [...] Neutrophil pct 35.9 % [facility] ([facility]) Comment: Interpretive [...] revised on 2017. Monocyte pct 14.9 % [facility] ([facility]) Comment: Interpretive Data Percent cell [...] revised on 2017. Basophil pct 2.2 % [facility] ([place]) Comment: Interpretive Data Percent cell count reference ranges are not reported, since discordance with absolute values may lead to misinterpretation of CBC data. Current Interpretive Data was last revised on 2017. Blood 07/16/2024 8:10 AM CARGOMAN 07/16/2024 8:42 AM CARGOMAN us Raquel Vasquez MD LAB BLOOD ORDERABLES Final Res ult [facility] ([facility]) 1 [facility] Department [place] [address] * (ABNORMAL) CBC with auto differential (07/16/2024 8:10 AM CARGOMAN) WBC 5.6 3.8 - 9.9 K/cumm Hgb 14.2 13.0 - 17.5 g/dL [facility] ([place]) Hct 44.9 38.9 - 50.3 % [facility] ([place]) Plt 199 150 - 400 K/cumm [facility] ([facility]) MPV 10.8 9.1 - 12.3 fL [facility] ([place]) RBC 4.63 4.30 - 5.80 M/cumm [facility] ([place]) MCV 97.0(H) 81.3 - 96.4 fL [facility] ([facility]) Comment:MCV delta possibly d ue to low sample volume. MCH 30.7 27.1 - 33.3 pg [facility] ([place]) MCHC 31.6(L) 32.3 - 35.7 g/dL [facility] ([facility]) RDW CV 13.1 11.1 - 14.9 % [facility] ([place]) RDW SD 46.7 35.7 - 48.1 fL [facility] ([place]) NRBC abs 0.00 0.00 - 0.01 K/cumm [facility] ([facility]) Blood 07/16/2024 8:10 AM CARGOMAN 07/16/2024 8:42 AM CARGOMAN us Raquel Vasquez MD LAB BLOOD ORDERABLES Final Res ult [facility] ([place]) 1 [facility] Department [place] [address] * eGFR (07/16/2024 4:34 AM CARGOMAN) eGFR >90 >=60 mL/min/1. 73 m2 Comment: [...] last reviewed 2021. Blood 07/16/2024 4:34 AM CARGOMAN 07/16/2024 5:20 AM CARGOMAN us Barbara Stephen MD LAB BLOOD ORDERABLES Final Resu lt Performing Organization Address City/State/[facility] Co de Phone Number [facility] ([place]) 1 [facility] Department of Laboratories [place], [place] [id number] * Pro B-type natriuretic peptide (07/16/2024 4:34 AM CARGOMAN) NT-proBNP 197 <=300 pg/mL Comment: Interpretive Comments: [...] et.al. Eur Heart J. 2006:27:330-337. 2. Lois YA, Wood RUSSO. J. AM Troy Cardiol: Cardiovasc Imag. 2009;2: 216- 225. Interpretive Data Last Revised Date: 2018. Blood 07/16/2024 4:34 AM CARGOMAN 07/16/2024 5:57 PM CARGOMAN us Raquel Vasquez MD LAB BLOOD ORDERABLES Final Res ult [facility] ([place]) 1 [facility] [place] [address] * (ABNORMAL) Comprehensive metabolic panel (07/16/2024 4:34 AM CARGOMAN) Sodium 130(L) 135 - 145 mmol/L Potassium, pl 5.2(H) 3.3 - 4.9 mmol/L [facility] ([facility]) Comment:Slightly Hemolyzed S pecimen. Results [...] ([place]) Albumin 3.5 3.5 - 5.0 g/dL [facility] ([facility]) Alk phos 71 40 - 130 Units/L [facility] ([place]) ALT 20 7 - 55 Units/L [facility] ([facility]) Comment:Hemolysis present. R esults may be affected. AST 36 10 - 50 Units/L [facility] ([facility]) Comment: Hemolysis present. ??Results may be affected. Slightly Hemolyzed Specimen Blood 07/16/2024 4:34 AM CARGOMAN 07/16/2024 4:54 AM CARGOMAN us Barbara Stephen MD LAB BLOOD ORDERABLES Final Resu lt [facility] ([place]) 1 [facility] Department [place] [address] * eGFR (07/15/2024 9:14 AM CARGOMAN) eGFR >90 >=60 mL/min/1. 73 m2 Comment: [...] last reviewed 2021. Blood 07/15/2024 9:14 AM CARGOMAN 07/15/2024 9:39 AM CARGOMAN us Barbara Stephen MD LAB BLOOD ORDERABLES Final Resu lt [facility] ([place]) 1 [facility] Department [place] [address] * Differential, auto (07/15/2024 9:14 AM CARGOMAN) Neutrophil abs 2.5 1.5 - 6.5 K/cumm Imm gran abs 0.1 0.0 - 0.1 K/cumm [facility] ([place]) Lymphocyte abs 2.4 0.8 - 3.3 K/cumm [facility] ([place]) Monocyte abs 0.8 0.2 - 0.8 K/cumm [facility] ([facility]) Eosinophil abs 0.2 0.0 - 0.5 K/cumm [facility] ([facility]) Basophil abs 0.1 0.0 - 0.1 K/cumm [facility] ([place]) Neutrophil pct 41.7 % [facility] ([facility]) Comment: Interpretive Data Percent cell count reference ranges are not reported, since discordance with absolute values may lead to misinterpretation of CBC data. Current Interpretive Data was last revised on 2017. Imm gran pct 1.8 % [facility] ([facility]) Comment: Interpretive Data Percent cell count reference ranges are not reported, since discordance with absolute values may lead to misinterpretation of CBC data. Current Interpretive Data was last revised on 2017. Lymphocyte pct 38.9 % [facility] ([facility]) Comment: Interpretive Data Percent cell count reference ranges are not reported, since discordance with absolute values may lead to misinterpretation of CBC data. Current Interpretive Data was last revised on 2017. Monocyte pct 13.8 % [facility] ([facility]) Comment: Interpretive Data Percent cell count reference ranges are not reported, since discordance with absolute values may lead to misinterpretation of CBC data. Current Interpretive Data was last revised on 2017. Eosinophil pct 2.6 % [facility] ([facility]) Comment: Interpretive Data Percent cell count reference ranges are not reported, since discordance with absolute values may lead to misinterpretation of CBC data. Current Interpretive Data was last revised on 2017. Basophil pct 1.2 % [facility] ([facility]) Comment: Interpretive Data Percent cell count reference ranges are not reported, since discordance with absolute values may lead to misinterpretation of CBC data. Current Interpretive Data was last revised on 2017. Blood 07/15/2024 9:14 AM CARGOMAN 07/15/2024 9:39 AM CARGOMAN us Barbara Stephen MD LAB BLOOD ORDERABLES Final Resu lt [facility] ([place]) 1 [facility] Department of Laboratories [place], [place] [id number] * CBC with auto differential (07/15/2024 9:14 AM CARGOMAN) WBC 6.1 3.8 - 9.9 K/cumm Hgb [...] [facility] ([facility]) Blood 07/15/2024 9:14 AM CARGOMAN 07/15/2024 9:39 AM CARGOMAN us Barbara Stephen MD LAB BLOOD ORDERABLES Final Resu lt [facility] ([facility]) 1 [facility] [place] [address] * Comprehensive metabolic panel (07/15/2024 9:14 AM CARGOMAN) Sodium 136 135 - 145 mmol/L Potassium, [...] [facility] ([facility]) Blood 07/15/2024 9:14 AM CARGOMAN 07/15/2024 9:39 AM CARGOMAN us Barbara Stephen MD LAB BLOOD ORDERABLES Final Resu lt [facility] ([place]) 1 [facility] Department [place] [address] * eGFR (07/14/2024 5:15 AM CARGOMAN) eGFR >90 >=60 mL/min/1. 73 m2 Comment: [...] last reviewed 2021. Blood 07/14/2024 5:15 AM CARGOMAN 07/14/2024 6:08 AM CARGOMAN us Barbara Stephen MD LAB BLOOD ORDERABLES Final Resu lt [facility] ([place]) 1 [facility] [place] [address] * Differential, auto (07/14/2024 5:15 AM CARGOMAN) Neutrophil abs 2.3 1.5 - 6.5 K/cumm [...] revised on 2017. Blood 07/14/2024 5:15 AM CARGOMAN 07/14/2024 6:07 AM CARGOMAN us Barbara Stephen MD LAB BLOOD ORDERABLES Final Resu lt [facility] ([facility]) 1 [facility] Department [place] [address] * (ABNORMAL) CBC with auto differential (07/14/2024 5:15 AM CARGOMAN) WBC 5.2 3.8 - 9.9 K/cumm Hgb 14.9 13.0 - 17.5 g/dL [facility] ([facility]) Hct 46.8 38.9 - 50.3 % [facility] ([place]) Plt 198 150 - 400 K/cumm [facility] ([facility]) MPV 9.4 9.1 - 12.3 fL [facility] ([place]) RBC 4.83 4.30 - 5.80 M/cumm [facility] ([place]) MCV 96.9(H) 81.3 - 96.4 fL [facility] ([facility]) MCH 30.8 27.1 - 33.3 pg [facility] ([facility]) MCHC 31.8(L) 32.3 - 35.7 g/dL [facility] ([facility]) RDW CV 13.3 11.1 - 14.9 % [facility] ([place]) RDW SD 47.5 35.7 - 48.1 fL [facility] ([facility]) NRBC abs 0.00 0.00 - 0.01 K/cumm [facility] ([place]) Blood 07/14/2024 5:15 AM CARGOMAN 07/14/2024 6:07 AM CARGOMAN us Barbara Stephen MD LAB BLOOD ORDERABLES Final Resu lt [facility] ([place]) 1 [facility] Department [place] [address] * Comprehensive metabolic panel (07/14/2024 5:15 AM CARGOMAN) Sodium 135 135 - 145 mmol/L Potassium, pl 4.7 3.3 - 4.9 mmol/L [facility] ([facility]) Chloride 102 97 - 110 mmol/L [facility]) CO2 22 22 - 32 mmol/L [facility] ([facility]) Anion gap 12 2 - 15 mmol/L [facility] ([facility]) BUN 13 6 - 25 mg/dL [facility] ([facility]) Creatinine 0.85 0.80 - 1.30 mg/dL [facility] ([facility]) Glucose 104 70 - 199 mg/dL [facility] ([facility]) Comment: Interpretive Data Fasting glucose [...] [facility] ([facility]) Blood 07/14/2024 5:15 AM CARGOMAN 07/14/2024 6:08 AM CARGOMAN us Barbara Stephen MD LAB BLOOD ORDERABLES Final Resu lt Performing Organization Address City/[facility]/ZIP Co de Phone Number [facility] ([place]) [address] [place] [address] [place] [address] * HIV 1/2 Antibody plus p24 Antigen Blood (07/13/2024 3:01 PM CARGOMAN) Pathologist [facility] HIV 1/2 ab + p24 ag Nonreactive Nonreactive Comment: Nonreactive for HIV-1 antigen and HIV-1/HIV-2 antibodies. No laboratory evidence of HIV infection. If acute HIV infection is suspected, consider testing for HIV-1 RNA. Testing performed by: [facility], [address] [place] [address]., [id number] Blood 07/13/2024 3:01 PM CARGOMAN 07/13/2024 7:49 PM CARGOMAN us Barbara Stephen MD LAB MICROBIOLOGY - GENERAL ORDAlona [facility] Final Result [facility] ([place]) [address] [place] [address] [place] [address] * Hepatitis C antibody Blood (07/13/2024 3:01 PM CARGOMAN) Hep C Ab Nonreactive Nonreactive Comment: Interpretive [...] last revised on 2019. Testing performed by: [facility], [address] [place] [address]., [id number] Blood 07/13/2024 3:01 PM CARGOMAN 07/13/2024 7:49 PM CARGOMAN Barbara Stephen MD LAB MICROBIOLOGY - GENERAL ORDE [facility] Final Result Performing Organization Address [facility] Co de Phone Number [facility] ([place]) 1 [facility] [place] [address] * (ABNORMAL) aPTT (07/13/2024 3:01 PM CARGOMAN) aPTT 39(H) 28 - 38 sec [facility] ([facility]) Comment: Interpretive Data Heparin therapeutic range: 66.0 - 100.0 seconds. Range based on correlation with therapeutic heparin activity range of 0.3 - 0.7 Units/mL. Current interpretive data was last revised on 2023. Blood 07/13/2024 3:01 PM CARGOMAN 07/13/2024 3:05 PM CARGOMAN Barbara Stephen MD LAB BLOOD ORDERABLES Final Resu lt Performing Organization Address [facility]/ZIP Co de Phone Number [facility] ([place]) 1 [facility] [place] [place] [address] * (ABNORMAL) Protime-INR (07/13/2024 3:01 PM CARGOMAN) PT 13.5(H) 9.7 - 13.0 sec [facility] ([place]) INR 1.24(H) 0.90 - 1.20 [facility] ([place]) Comment: Interpretive data Oral anticoagulant therapeutic ranges: Venous thromboembolism prophylaxis or treatment: 2.0-3.0 CARDIOLOGY Standard range: 2.0-3.0 High-intensity range: 2.5-3.5 Refer to indication-specific guidelines for appropriate target ranges for prosthetic heart valve replacement. Current interpretive data was last revised on 2019. Blood 07/13/2024 3:01 PM CARGOMAN 07/13/2024 3:05 PM CARGOMAN Barbara Stephen MD LAB BLOOD ORDERABLES Final Resu lt [facility] ([place]) [address] [facility] [address] * Magnesium (07/13/2024 3:01 PM CARGOMAN) Magnesium 2.3 1.4 - 2.5 mg/dL Blood 07/13/2024 3:01 PM CARGOMAN 07/13/2024 3:05 PM CARGOMAN Barbara Stephen MD LAB BLOOD ORDERABLES Final Resu lt Performing Organization Address City/[facility]/ZIP Co de Phone Number [facility] ([place]) [address] [facility] [place] [id number] * Lipase (07/13/2024 3:01 PM CARGOMAN) Lipase 26 10 - 99 Units/L Blood 07/13/2024 3:01 PM CARGOMAN 07/13/2024 3:05 PM CARGOMAN Barbara Stephen MD LAB BLOOD ORDERABLES Final Resu lt [facility] ([place]) [address] [place] [address] * (ABNORMAL) Amylase (07/13/2024 3:01 PM CARGOMAN) Amylase 19(L) 30 - 99 Units/L Blood 07/13/2024 3:01 PM CARGOMAN 07/13/2024 3:05 PM CARGOMAN Barbara Stephen MD LAB BLOOD ORDERABLES Final Resu lt Performing Organization Address [facility] Co de Phone Number [facility] ([place]) 1 [facility] [place] [address] * Ethanol (07/13/2024 3:01 PM CARGOMAN) Ethanol <10 <=10 mg/dL Comment: Interpretive Data Legal limit of intoxication > or = 80 mg/dL Levels > or = 400 mg/dL are potentially TOXIC. Current interpretive data was last revised on 2018. Blood 07/13/2024 3:01 PM CARGOMAN 07/13/2024 3:05 PM CARGOMAN Barbara Stephen MD LAB BLOOD ORDERABLES Final Resu lt Performing Organization Address [facility] de Phone Number [facility] ([place]) 1 [facility] [place] [address] * eGFR (07/13/2024 10:55 AM CARGOMAN) eGFR >90 >=60 mL/min/1. 73 m2 Comment: [...] reviewed 2021. Blood 07/13/2024 10:5 5 AM CARGOMAN 07/13/2024 11:21 AM CARGOMAN us Fariba Breen MD LAB BLOOD ORDERABLES Final Re sult [facility] ([place]) 1 [facility] [place] [address] * (ABNORMAL) Drugs of Abuse Screen, Urine without Confirmation (07/13/2024 10:55 AM CARGOMAN) Pathologist [facility] Amphetamine, ur Not Detected CutOff 500ng/mL Comment: Interpretive Data - Amphetamines: ??Samples containing greater than 500 ng/mL d-methamphetamine ??or other cross-reacting amphetamine compounds are reported as positive. ??Amphetamine immunoassays are subject to significant false positive rates due to cross-reactivity of non-amphetamine drugs. Confirmatory testing required for definitive results. Current Interpretive Data was last reviewed 2023. Barbiturates, ur Not Detected CutOff 200ng/mL [facility] ([facility]) Comment: Interpretive Data - Barbiturates: ??Samples containing greater than 200 ng/mL secobarbital or other cross-reacting barbiturate compounds are reported as positive. ??False positive and false negative results are possible. Confirmatory testing required for definitive results. Current Interpretive Data was last reviewed 2023. Benzodiazepines, ur Not Detected CutOff 100ng/mL [facility] ([place]) Comment: Interpretive Data - Benzodiazepines: ??Samples [...] 2023. Opiates, ur Not Detected CutOff 300ng/mL [facility] ([facility]) Comment: Interpretive Data - Opiates: ??Samples containing greater than 300 ng/mL morphine or other cross-reacting compounds are reported as positive. ??False positive and false negative results are possible. Confirmatory testing required for definitive results. Current Interpretive Data was last reviewed 2023. Oxycodone, ur Not Detected CutOff 100ng/mL [facility] ([facility]) Comment: Interpretive Data - Oxycodone: ??Samples [...] reviewed 2023. Urine Creatinine 181 mg/dL [facility] ([facility]) Comment: Interpretive Data Urine Creatinine: < 10 mg/dL is extremely dilute = or > 10 but < 20 mg/dL is dilute = or > 20 mg/dL is normal Current Interpretive Data was last revised on 2017. Urine 07/13/2024 10:5 5 AM CARGOMAN 07/13/2024 11:01 AM CARGOMAN Narrative [facility] ([facility]) - 07/13/2024 11:31 AM CARGOMAN Drug of Abuse screening is performed by immunoassay for medical purposes only. ??This is not to be used for Pain Management purposes. us Fariba Breen MD LAB URINE ORDERABLES Final Re sult [facility] ([place]) 1 [facility] [place] [address] * CBC without differential (07/13/2024 10:55 AM CARGOMAN) WBC 8.9 3.8 - 9.9 K/cumm Hgb [...] NRBC abs 0.00 0.00 - 0.01 K/cumm [facility] Blood 07/13/2024 10:5 5 AM CARGOMAN 07/13/2024 11:21 AM CARGOMAN us Fariba Breen MD LAB BLOOD ORDERABLES Final Re sult [facility] ([facility]) 1 [facility] [place] [address] * Comprehensive metabolic panel (07/13/2024 10:55 AM CARGOMAN) Sodium 135 135 - 145 mmol/L Potassium, pl 4.2 3.3 - 4.9 mmol/L [facility] Chloride 98 97 - 110 mmol/L [facility] ([facility]) CO2 25 22 - 32 mmol/L [facility] ([facility]) Anion gap 13 2 - 15 mmol/L [facility] ([facility] BUN 12 6 - 25 mg/dL [facility]) Creatinine 0.93 0.80 - 1.30 mg/dL [facility] ([facility]) Comment:Icteric sample, test results may be affected. Glucose 114 70 - 199 mg/dL [facility] Comment: Interpretive Data Fasting glucose [...] 2022. Calcium 9.0 8.5 - 10.3 mg/dL [facility] ([facility]) Bilirubin, total 1.1 0.1 - [...] [facility]) Blood 07/13/2024 10:5 5 AM [facility] 07/13/2024 11:21 AM CARG[facility] Fariba Breen MD LAB BLOOD ORDERABLES Final Re sult [facility] ([facility]) [facility] Department [place] [address] from Last 3 Months Insurance Member Subscriber Plan / Payer (Ef fective 2022-Present) Name:Peter Thibodeaux Relation to Subscriber:Self Name:Yrn Thibodeauxn Payer ID:[id number] (NAIC) Group ID:Not on file Type:MEDICAID RISK OTHER Address: ATTN: CLAIMS DEPT [address] [facility] [place] [phone] Advance Directives For more information, please contact: [phone] * Full Code (Latest Code Status on File) Date Activated Date Inactivated Comments 07/13/2024 2:06 PM 07/18/2024 12:47 PM * Full Code Date Activated Date Inactivated Comments 09/21/2023 6:45 PM 09/23/2023 7:51 PM * Full Code Date Activated Date Inactivated Comments 06/14/2023 8:11 PM 06/22/2023 5:39 PM Care Teams Swimming Instructor Relationship Specialty Start Date End Date Clinton Maddox MD [address] [address] PCP - General Internal Medicine 06/14/23 Clinton Maddox MD [address] [place] [address] [phone] (work) Internal Medicine 06/14/23
--- OUTSIDE RECORDS SUMMARY | 2024-07-19 20:14 | XMS_ITS | Encounter Summary ---
Author Organization [facility] Healthcare Address [address] [place] [address] Care Team Providers Care Batt Machine Operator Name Role Phone Clinton Maddox MD Primary Care Provider [phone] Clinton Maddox MD Unavailable [phone] Reason for Visit * Auth/Cert (Routine) Specialty Diagnoses / Procedures Referred By Contac t Referred To Contact Diagnoses Alcohol dependence, uncomplicated Alcohol abuse Procedures n/a Referral ID Status Reason Start Date Expiration Date Visits Re quested Visits Authorized [id number] 1 1 Encounter Details Date Type Department Care Team (Latest Contact Info) Description 07/13/2024 12:26 PM GENERAL ASSISTANT - 07/18/2024 8:20 AM [facility] En[facility] 1 [place] [address] Ravinder Muir Jr., MD [address] [facility] [place] [address] Gogo Yoo MD [address] [facility] [place] [address] Raquel Vasquez MD [address] [place] [address] [place] [address] Radha Mayfield MD [address] [place] [address] [place] [address] Alcohol abuse (Primary Dx); Paroxysmal atrial fibrillation (CMS/HCC) (HCC) Discharge Disposition: Discharge to not defined facility Social History Tobacco Use Types Packs/Day Years Used Date Smoking Tobacco: Never Alcohol Use Standard Drinks/Week Comments Yes 0 (1 standard drink = 0.6 oz pur e alcohol) [facility] Utilities Answer Date Recorded In the past 12 months has th e electric, gas, oil, or water company threatened to shut off services in your [...] often do you attend chur ch or latter-day services? Never 09/22/2023 Do you belong to any clubs o r organizations such as yazidi groups, unions, fraternal or athletic groups, or [...] place to sleep or slept in a mcc (including now)? No 09/22/2023 Personal Safety Answer [...] on file Sexual Orientation Not on file documented as of this encounter Last Filed Vital Signs Vital Sign Reading Time Taken Comments Blood Pressure 129/82 07/18/2024 7:23 AM GENERAL ASSISTANT Pulse 87 07/18/2024 7:23 AM GENERAL ASSISTANT Temperature 36.8 ??C (98.2 ??F) 07/18/2024 7:23 AM CS T Respiratory Rate 18 07/18/2024 7:23 AM GENERAL ASSISTANT Oxygen Saturation 91% 07/18/2024 7:23 AM GENERAL ASSISTANT Inhaled Oxygen Concentration - - Weight 142.2 kg (313 lb 7.9 oz) 07/13/2024 3:03 PM GENERAL ASSISTANT Height 177.8 cm (5' 10 ) 07/13/2024 3:03 PM GENERAL ASSISTANT Body Mass Index 44.98 07/13/2024 3:03 PM GENERAL ASSISTANT documented in this encounter Discharge Summaries * Radha Mayfield MD - 07/17/2024 1:48 PM CST Inpatient Discharge Summary Patient Name - Peter Thibodeaux Patient Age - 63 yrs Patient - [id number] [facility] - [id number] Document Creation Date: 07/17/2024 Admitting Provider, MD: Gogo Yoo MD Discharge Provider, : Radha Mayfield MD Primary Care Physician at Discharge: Clinton Maddox MD [phone] Admission Date: 07/13/2024 Discharge Date/time: Admission Location: [facility] LOS - LOS: 4 days DETAILS OF HOSPITAL STAY Hospital Problems/Diagnoses Principal Problem: Alcohol abuse Reason for Hospitalization: Alcohol withdrawal, via medical stabilization program HPI: 63-year-old male with past medical history of alcohol abuse, depression, hypertension, PTSD, heartfailure is being admitted for medical stabilization/detoxification program. Patient is interested and rehab program. Patient's last drink was this morning. He does have history of alcohol withdrawal but denies any seizures in the past. Denies any fevers, chills, abdominal pain, nausea, vomiting, tremors at the moment. Last bowel movement was yesterday.. History of methamphetamine use as well. Denies any IV drug abuse. Hospital Course: Patient was initiated on CIWA protocol and Librium taper. He was supplemented with folic acid, thiamine and multivitamin while hospitalized. Warm handoff was following. Home medications continued. Patient feels well today, and has completed his Librium taper. He is not having any tremors, and denies having any symptoms of alcohol withdrawal. Pt is planned for door to door discharge to [facility] rehab on 07/18 8:15 am. Discharge Details Physical Exam at Discharge: Discharge Condition: stable Pulse: 93 Resp: 22 BP: 130/82 Temp: 36.4 ??C (97.5 ??F) Weight: (!) 142.2 kg (313 lb 7.9 oz) Pertinent Exam Findings at Discharge: Gen: awake, no acute distress, pleasant and cooperative Neuro: no focal deficits, CN II-XII grossly intact Eyes: extraocular movement intact, sclerae anicteric HENT: supple, no JVD CV: regular rate and rhythm; no murmurs, rubs, or gallops; no peripheral edema; 2+ pulses in all extremities Pulm: clear to auscultation bilaterally; no wheezes, rales, or rhonchi GI: obese, soft, non-tender, non-distended MSK: no cyanosis, clubbing Skin: warm, dry Psych: normal mood and affect Discharge Disposition: Discharge to not defined facility Code Status at Discharge: Full Code Active Issues & Recommended Plan for Follow-up: Stable for discharge to residential rehab for continued alcohol abstinence Allergies: Patient has no known allergies. Discharge Medications: Your medication list START taking these medications Instructions Last Dose Given Next Dose Due multivit zlwvyvsd-epqc-AJ-calcium 9 mg iron-400 mcg tablet Commonly known as: THERA-M Start taking on: July 18, 2024 1 tablet, oral, Daily thiamine 100 mg tablet Commonly known as: VITAMIN B1 Start taking on: July 18, 2024 100 mg, oral, Daily CONTINUE taking these medications Instructions Last Dose Given Next Dose Due albuterol HFA 90 mcg/actuation inhaler Commonly known as: PROVENTIL HFA,VENTOLIN HFA,PROAIR HFA 2 puffs, inhalation, Every 6 hours PRN apixaban 5 mg tablet Commonly known as: ELIQUIS 5 mg, 2 times daily atorvastatin 40 mg tablet Commonly known as: LIPITOR 40 mg, Daily Cymbalta 60 mg capsule Generic drug: DULoxetine DR 60 mg, Every 12 hours dapagliflozin propanediol 10 mg tablet Commonly known as: Farxiga 10 mg, oral, Daily dilTIAZem CD 300 mg 24 hr capsule Commonly known as: CARDIZEM CD 300 mg, oral, Daily furosemide 20 mg tablet Commonly known as: LASIX 20 mg, oral, Daily gabapentin 300 mg capsule Commonly known as: NEURONTIN 600 mg, 3 times daily hydrOXYzine 25 mg capsule Commonly known as: VISTARIL 50 mg, oral, Daily losartan 25 mg tablet Commonly known as: COZAAR 25 mg, oral, Daily metoprolol tartrate 50 mg immediate release tablet Commonly known as: LOPRESSOR 50 mg, oral, 2 times daily mirtazapine 15 mg tablet Commonly known as: REMERON 15 mg, Nightly spironolactone 25 mg tablet Commonly known as: ALDACTONE 25 mg, oral, Daily traZODone 50 mg tablet Commonly known as: DESYREL 50 mg, Nightly STOP taking these medications ALPRAZolam 0.25 mg tablet Commonly known as: XANAX ARIPiprazole 5 mg tablet Commonly known as: KATHY Where to Get Your Medications These medications were sent to [facility] [id number] [place] [address] [address] dilTIAZem CD 300 mg 24 hr capsule multivit shmlchmq-tzab-ZM-calcium 9 mg iron-400 mcg tablet thiamine 100 mg tablet Time Spent in Discharge Process: I have spent 36 minutes on discharge planning activities. Time spent was on Coordination of care, Follow up , Counselling with patient/family, discharge exam, and parent/patient education Test Results Pending at Discharge (If Blank, None Found): Operative Procedures Performed (If Blank, None Found): Outpatient Follow-Up: Contact Information for Follow-ups Clinton Maddox MD Specialty: Internal Medicine, Hospice and Palliative Medicine Relationship: PCP - General [address] [place] [address] Next Steps: Follow up Comments: Follow up with established provider: 4 weeks Questions: To provider: CLINTON MADDOX Please schedule an appointment with the following provider(s): Clinton Maddox MD [address] [place] [address] ANCILLARY INFORMATION Other Procedures & Diagnostic Tests: No results found. Recent Labs: Recent Labs Lab Units 07/16/24 0810 07/15/24 0914 07/14/24 0515 WBC K/cumm 5.6 6.1 5.2 HEMOGLOBIN g/dL 14.2 14.4 14.9 HEMATOCRIT % 44.9 43.2 46.8 PLATELETS K/cumm 199 223 198 Recent Labs Lab Units 07/16/24 0810 07/15/24 0914 07/14/24 0515 WBC K/cumm 5.6 6.1 5.2 HEMOGLOBIN g/dL 14.2 14.4 14.9 HEMATOCRIT % 44.9 43.2 46.8 PLATELETS K/cumm 199 223 198 NEUTROS PCT % 35.9 41.7 43.3 LYMPHS PCT % 42.9 38.9 33.9 MONOS PCT % 14.9 13.8 15.3 EOS PCT % 2.7 2.6 2.9 Recent Labs Lab Units 07/17/24 0525 07/16/24 0434 07/15/24 0914 SODIUM mmol/L 138 130* 136 POTASSIUM PLASMA mmol/L 4.3 5.2* 4.2 CHLORIDE mmol/L 103 102 100 CO2 mmol/L 24 18* 24 BUN SERUM mg/dL 15 15 14 CREATININE mg/dL 0.85 0.83 0.88 IIX-VSO-XGZLWIE mL/min/1.73 m2 >90 >90 >90 GLUCOSE mg/dL 112 102 125 CALCIUM mg/dL 9.1 9.1 9.0 ALBUMIN g/dL 3.8 3.5 3.7 Recent Labs Lab Units 07/17/24 0525 07/16/24 0434 07/15/24 0914 07/14/24 0515 07/13/24 1501 SODIUM mmol/L 138 130* 136 < > -- POTASSIUM PLASMA mmol/L 4.3 5.2* 4.2 < > -- CHLORIDE mmol/L 103 102 100 < > -- CO2 mmol/L 24 18* 24 < > -- ANIONGAP mmol/L 11 10 12 < > -- GLUCOSE mg/dL 112 102 125 < > -- BUN SERUM mg/dL 15 15 14 < > -- CREATININE mg/dL 0.85 0.83 0.88 < > -- CALCIUM mg/dL 9.1 9.1 9.0 < > -- ALBUMIN g/dL 3.8 3.5 3.7 < > -- ALK PHOS Units/L 71 71 71 < > -- ALT Units/L 25 20 19 < > -- AST Units/L 24 36 22 < > -- BILIRUBIN TOTAL mg/dL 0.4 0.6 0.6 < > -- AMYLASE Units/L -- -- -- -- 19* < > = values in this interval not displayed. Recent Labs Lab Units 07/17/24 0525 07/16/24 0434 07/15/24 0914 ALK PHOS Units/L 71 71 71 BILIRUBIN TOTAL mg/dL 0.4 0.6 0.6 TOTAL PROTEIN g/dL 6.8 7.1 6.8 ALT Units/L 25 20 19 AST Units/L 24 36 22 Recent Labs Lab Units 07/13/24 1501 MAGNESIUM mg/dL 2.3 Recent Labs Lab Units 07/13/24 1501 PROTIME (PT) sec 13.5* INR 1.24* APTT sec 39* Lab Results Component Value Date GLUCOSE 112 07/17/2024 GLUCOSE 102 07/16/2024 GLUCOSE 125 07/15/2024 Implant: Implants No active implants to display in this view. General Precautions (If Blank, None Found): Seizure Precautions: Padded side rails Isolation Status: No active isolations Nutritional Status and in-house recommendations: Dietary Orders (From admission, onward) Start Ordered 07/13/24 1407 Snacks Once (Routine) 07/13/24 1406 07/13/24 1406 Adult Diet Regular Diet effective now Question: ([facility]) Diet Type Answer: Regular 07/13/24 1406 Anticoagulation Indication: INR: 07/13/2024: 1.24 (H) Warfarin Administrations (last 168 hours) None Oxygen Status: O2 Therapy for the past 12 hrs: O2 Therapy 07/17/24 0744 None (Room air) Wound Care Instructions Other Instructions Call provider for: Temperature -Temperature greater than 101 degrees F Call provider for: difficulty breathing or chest pain Call provider for: extreme fatigue Call provider for: hives Call provider for: persistent dizziness or light-headedness Call provider for: persistent nausea or vomiting Call provider for: redness, tenderness, or signs of infection (pain, swelling, redness, odor or green/yellow discharge around incision site) Call provider for: severe uncontrolled pain Call provider for: headache, visual disturbances, weakness and speech changes Active LDAs (If Blank, None Found): Patient Emergency Contact: Primary Emergency Contact: Kristin Del Toro Immunization Status at Discharge Immunization History Administered Date(s) Administered Influenza, Quadrivalent, Split, Preservative Free, Intramuscular 06/22/2023 Moderna SARS-CoV-2 Monovalent Vaccination (12+ YRS) 09/11/2020, 10/16/2020 Tdap 05/15/2023 Radha Mayfield MD RAL ASSISTANT documented in this encounter Discharge Instructions * Discharge Instructions* Hilda Mcmahan RN - 07/13/2024 6:08 PM GENERAL ASSISTANT Images from the original note were not included. MENTAL HEALTH CRISIS/URGENT CARE SERVICES National Suicide Prevention Hotline (Available by calling or texting 646 to speak with a counselor for support or additional resources) [facility] 676-182-3991 (Crisis hotline) [facility] 755-273-7974 (Crisis hotline) Call for Help-Living Room Crisis Support [phone] (Immediate crisis and mental health support in a calm, comfortable environment) [facility] MEDICAID [facility] [phone] ([facility]) [facility] [phone] ([facility]) SUBSTANCE USE TREATMENT [facility] Warm Hand Off- [phone] [facility] Medical Stabilization - [phone] [facility] [phone] [facility] [place] [address] [place] [address] [facility] [phone] [place] [address] Emergency Intermediate and Financial Assistance View Full Listing [place] [address] Non Profit Organization that provides housing assistance View Full Listing Details [facility] Crisis Residential/Stabilization For Crisis Residential services in the [facility], please call [phone] andask for the Crisis Residential Unit. For Crisis Stabilization services in [facility] please call [phone] and ask for the Crisis Stabilization Unit. [facility] provides 24 hour short term supervised care for persons aged 18 years and older experiencing an acute psychiatric crisis that does not require hospitalization. The average length of stay is 14 days. Admission to our crisis unit is voluntary; we only accept those individuals who choose to come to the unit. The facility is not prepared to work with persons who may be acutelysuicidal or homicidal or who are experiencing serious medical problems or complications. The unit is staffed with nurses and behavioral health technicians and is not a hospital. During their stay on the unit, clients spend time in groups that meet four or more times a day. Thegroups provide education on topics helpful to individuals in crisis and clients are expected to attend and to participate actively. [facility] will provide a safe and supportive environment conductive to achieving stability. Clients are expected to contribute to their recovery by assuming responsibility for several tasks including: Personal care and grooming Making one???s bed and keeping one???s bedroom neat Laundering and returning towels, linens, scrubs and other items issued by [facility]. Taking all medications as prescribed by the doctor Cleaning up after using the kitchen, common area, bathroom and shower area. Maintaining a peaceful environment Following one???s own treatment plan No alcohol or drugs are allowed on the unit. All medications are dispensed by [facility] nurses at appropriate times. No visitors are allowed on the unit but there is a phone available for clients to use and make calls. Persons may refer themselves for crisis residential/stabilization services and may be referred by hospitals, police departments, mental health agencies, social service agencies, and families. [facility] [address] [place] [address] [facility] [address] [place], [place] [id number] [facility] [address] [place], [place] [id number] [facility] [phone] If you have any questions or concerns regarding your discharge please contact Medical Care Unit at . Thank you. RAL ASSISTANT RAL ASSISTANT * Discharge Instr - Diet* Emma Wilson, RD - 07/18/2024 8:20 AM GENERAL ASSISTANT Recommend to eat a generally Healthy diet with foods that include a variety of fruits, vegetables, whole-grain breads, low-fat dairy products, beans, lean meats, and fish. Limit fast food, sugary drinks, excess salt, and desserts. Limit sugary drinks like lemonade, regular soda, Gatorade, and sweettea and drink water throughout the day. Additional resources are available online from the Academy of Nutrition and Dietetics at www.eatright.org If poor intakes and/or unintended weight loss occur on discharge follow up with primary care physician. Call [phone] to speak with a dietitian about any diet related concerns. If interested in nutrition counseling, ask your doctor for referral and call [phone] to make an appointment. RAL ASSISTANT * Attachments The following attachments cannot be sent through Care Everywhere. * Multivitamins, Adult Formula (By mouth) (Finnish) documented in this encounter Medications at Time of Discharge albuterol HFA (PROVENTIL HFA,VENTOLIN HFA,PROAIR HFA) 90 mcg/actuation inhaler Inhale 2 puffs every 6 (six) hours as needed for wheezing or shortness of breath 01/07/2014 apixaban (ELIQUIS) 5 mg tablet Take 1 tablet (5 mg total) by mouth 2 (two) times a day atorvastatin (LIPITOR) 40 mg tablet Take 1 tablet (40 mg total) by mouth daily dapagliflozin propanediol (Farxiga) 10 mg tablet Take 1 tablet (10 mg total) by mouth daily 30 tablet 11 11/10/2023 dilTIAZem CD (CARDIZEM CD) 300 mg 24 hr capsule Take 1 capsule (300 mg total) by mouth daily 30 capsule 11 07/17/[address] (Cymbalta) 60 mg capsule Take 1 capsule (60 mg total) by mouth every 12 hours furosemide (LASIX) 20 mg tablet Take 1 tablet (20 mg total) by mouth daily 30 tablet 11/10/2023 5 gabapentin (NEURONTIN) 300 mg capsule Take 2 capsules (600 mg total) by mouth 3 (three) times a day 01/07/2014 hydrOXYzine (VISTARIL) 25 mg capsule Take 2 capsules (50 mg total) by mouth daily losartan (COZAAR) 25 mg tablet Take 1 tablet (25 mg total) by mouth daily 30 tablet 11 11/10/2023 5 metoprolol tartrate (LOPRESSOR) 50 mg immediate release tablet Take 1 tablet (50 mg total) by mouth 2 (two) times a day 180 tablet 3 11/10/2023 5 mirtazapine (REMERON) 15 mg tablet Take 1 tablet (15 mg total) by mouth nightly 01/08/2014 multivit grqvzcpo-wlje-ZV- calcium (THERA-M) 9 mg iron-400 mcg tabletIndications :Vitamin Deficiency Prevention Take 1 tablet by mouth daily 30 tablet 07/18/2024 5 spironolactone (ALDACTONE) 25 mg tablet Take 1 tablet (25 mg total) by mouth daily 90 tablet 3 11/10/2023 5 thiamine (VITAMIN B1) 100 mg tablet Take 1 tablet (100 mg total) by mouth daily 30 tablet 07/18/2024 5 traZODone (DESYREL) 50 mg tablet Take 1 tablet (50 mg total) by mouth nightly documented as of this encounter Ordered Prescriptions Prescription Sig Dispense Quantity Refills Last Filled Start Date End Date thiamine (VITAMIN B1) 100 mg tablet Take 1 tablet (100 mg total) by mouth daily 30 tablet 07/18/2024 5 multivit oqmnsbwn-ofvc-KI-c alcium (THERA-M) 9 mg iron-400 mcg tabletIndications: Vitamin Deficiency Prevention Take 1 tablet by mouth daily 30 tablet 07/18/2024 5 dilTIAZem CD (CARDIZEM CD) 300 mg 24 hr capsule Take 1 capsule (300 mg total) by mouth daily 30 capsule 11 07/17/2024 6 documented in this encounter Discharge Disposition Disposition Code Departure Means Destination Comment s Discharge to not defined facility documented in this encounter Progress Notes * Emma Wilson, RD - 07/18/2024 8:20 AM CST Nutrition LOS Screen/Re-screen Encounter Date: 07/18/24 8:53 AM Nutrition Status: Patient appears adequately nourished. Patient is a 63 y.o. male. Admit Dx: Alcohol dependence, uncomplicated [F10.20] Alcohol abuse [F10.10]. Admitted on 07/13/2024, current LOS is 5 days. Wt Readings from Last 10 Encounters: 07/13/24 (!) 142.2 kg (313 lb 7.9 oz) 11/10/23 130.2 kg (287 lb) 09/22/23 130.7 kg (288 lb 3.2 oz) 06/14/23 114.8 kg (253 lb) 05/15/23 113.4 kg (250 lb) 05/15/23 113.4 kg (250 lb) 05/23/22 117.9 kg (260 lb) Current diet order: Adult Diet Regular Adult Discharge Diet Impression: PO Intake average of 100%. Per EMR weight history, weight gain. RDN to follow per LOS policy. Diet Instructions Adult Discharge Diet Diet Type: Return to previous diet Recommend to eat a generally Healthy diet with foods that include a variety of fruits, vegetables, whole-grain breads, low-fat dairy products, beans, lean meats, and fish. Limit fast food, sugary drinks, excess salt, and desserts. Limit sugary drinks like lemonade, regular soda, Gatorade, and sweettea and drink water throughout the day. Additional resources are available online from the Academy of Nutrition and Dietetics at www.eatright.org If poor intakes and/or unintended weight loss occur on discharge follow up with primary care physician. Call [phone] to speak with a dietitian about any diet related concerns. If interested in nutrition counseling, ask your doctor for referral and call [phone] to make an appointment. Emma Wilson RD, LDN RDN Inpatient Office: [phone] Weekend Coverage: [phone] RAL ASSISTANT * Raquel Vasquez MD - 07/16/2024 2:49 PM CST General Medicine Daily Progress SUBJECTIVE Chief complaint of alcohol withdrawal Interval History: No acute events. Pt is feeling much better, no significant withdrawal symptoms noted. Continues on librium taper. Potassium is elevated at 5.3, lokelma given and will hold losartan and spironolactone, repeat labs in the morning. Plan is dc to rehab door to door, rehab can accept the pt on Tuesday, discussed with WHO team. OBJECTIVE Vitals: 24hr Min/Max: Temp Min: 36 ??C (96.8 ??F) Max: 36.3 ??C (97.3 ??F) Pulse Min: 72 Max: 87 BP Min: 93/78 Max: 131/73 Resp Min: 18 Max: 18 SpO2 Min: 96 % Max: 99 % Most Recent : Vitals: 07/16/24 1100 BP: Pulse: Resp: 18 Temp: SpO2: I/O last 2 completed shifts: In: 840 [P.O.:840] Out: - I/O this shift: In: 960 [P.O.:960] Out: - Physical Exam: Eyes: EOMI, SUSANNE, sclare non icteric Neck: supple, no nuchal ridigity, no gross carotid bruits appreciated Pharynx: No gross oral lesion, tongue midline, mucosa moist Lungs CTA Heart: [id number], no significant murmur or gallop Abd: +BS, Non Tender, Non distended, No gross hepatomegaly Lower Ext: No gross edema, pedal artery pulses are palpable bilaterally Neuro: No new deficits appreciated Musculoskeletal: no gross joint erythema, edema, tenderness Skin: No new change Lab/Current Medication Review: Recent Results (from the past 24 hours) Comprehensive metabolic panel Collection Time: 07/16/24 4:34 AM Result Value Ref Range Sodium 130 (L) 135 - 145 mmol/L Potassium, pl 5.2 (H) 3.3 - 4.9 mmol/L Chloride 102 97 - 110 mmol/L CO2 18 (L) 22 - 32 mmol/L Anion gap 10 2 - 15 mmol/L BUN 15 6 - 25 mg/dL Creatinine 0.83 0.80 - 1.30 mg/dL Glucose 102 70 - 199 mg/dL Calcium 9.1 8.5 - 10.3 mg/dL Bilirubin, total 0.6 0.1 - 1.2 mg/dL Protein, pl 7.1 6.5 - 8.5 g/dL Albumin 3.5 3.5 - 5.0 g/dL Alk phos 71 40 - 130 Units/L ALT 20 7 - 55 Units/L AST 36 10 - 50 Units/L eGFR Collection Time: 07/16/24 4:34 AM Result Value Ref Range eGFR >90 >=60 mL/min/1.73 m2 CBC with auto differential Collection Time: 07/16/24 8:10 AM Result Value Ref Range WBC 5.6 3.8 - 9.9 K/cumm Hgb 14.2 13.0 - 17.5 g/dL Hct 44.9 38.9 - 50.3 % Plt 199 150 - 400 K/cumm MPV 10.8 9.1 - 12.3 fL RBC 4.63 4.30 - 5.80 M/cumm MCV 97.0 (H) 81.3 - 96.4 fL MCH 30.7 27.1 - 33.3 pg MCHC 31.6 (L) 32.3 - 35.7 g/dL RDW CV 13.1 11.1 - 14.9 % RDW SD 46.7 35.7 - 48.1 fL NRBC abs 0.00 0.00 - 0.01 K/cumm Differential, auto Collection Time: 07/16/24 8:10 AM Result Value Ref Range Neutrophil abs 2.0 1.5 - 6.5 K/cumm Imm gran abs 0.1 0.0 - 0.1 K/cumm Lymphocyte abs 2.4 0.8 - 3.3 K/cumm Monocyte abs 0.8 0.2 - 0.8 K/cumm Eosinophil abs 0.2 0.0 - 0.5 K/cumm Basophil abs 0.1 0.0 - 0.1 K/cumm Neutrophil pct 35.9 % Imm gran pct 1.4 % Lymphocyte pct 42.9 % Monocyte pct 14.9 % Eosinophil pct 2.7 % Basophil pct 2.2 % No results found. Current Facility-Administered Medications Medication Dose Route Frequency Provider Last Rate Last Admin acetaminophen (TYLENOL) tablet 650 mg 650 mg oral Q4H PRN Gogo Yoo MD 650 mg at 07/14/24 1442 albuterol 2.5 mg /3 mL (0.083 %) nebulizer solution 2.5 mg 2.5 mg nebulization Q6H PRN (RT) Gogo Yoo MD apixaban (ELIQUIS) tablet 5 mg 5 mg oral BID Gogo Yoo MD 5 mg at 07/16/24 0835 atorvastatin (LIPITOR) tablet 40 mg 40 mg oral Daily Gogo Yoo MD 40 mg at 07/16/24 0835 chlordiazePOXIDE (LIBRIUM) capsule 25 mg 25 mg oral Q4H PRN Gogo Yoo MD 25 mg at 07/14/24 1030 Or chlordiazePOXIDE (LIBRIUM) capsule 25 mg 25 mg oral Q2H PRN Gogo Yoo MD 25 mg at 07/14/24 0534 Or LORazepam (ATIVAN) 1 mg in sodium chloride 0.9% (further dilution required) injection 1 mg intravenous Q1H PRN Gogo Yoo MD Or LORazepam (ATIVAN) injection 1 mg 1 mg intramuscular Q1H PRN Gogo Yoo MD Or LORazepam (ATIVAN) 2 mg in sodium chloride 0.9% (further dilution required) injection 2 mg intravenous Q1H PRN Gogo Yoo MD Or LORazepam (ATIVAN) injection 2 mg 2 mg intramuscular Q1H PRN Gogo Yoo MD chlordiazePOXIDE (LIBRIUM) capsule 25 mg 25 mg oral Q8H Raquel Vasquez MD dapagliflozin propanediol (FARXIGA) tablet 10 mg 10 mg oral Daily Gogo Yoo MD 10 mg at 07/16/24 0835 dicyclomine (BENTYL) capsule 20 mg 20 mg oral Q6H PRN Raquel Vasquez MD dilTIAZem CD (CARDIZEM CD) 24 hour capsule 300 mg 300 mg oral Daily Gogo Yoo MD 300 mg at 07/16/[address] (CYMBALTA) extended release capsule 60 mg 60 mg oral BID Gogo Yoo MD 60 mg at 07/16/24 0835 folic acid (FOLVITE) tablet 1 mg 1 mg oral Daily Gogo Yoo MD 1 mg at 07/16/24 0835 furosemide (LASIX) tablet 20 mg 20 mg oral Daily Gogo Yoo MD 20 mg at 07/16/24 0835 gabapentin (NEURONTIN) capsule 600 mg 600 mg oral TID Gogo Yoo MD 600 mg at 07/16/24 0834 hydrOXYzine (ATARAX) tablet 50 mg 50 mg oral Q6H PRN Raquel Vasquez MD influenza trivalent [id number] (FLULAVAL,FLUARIX,FLUZONE) 45 mcg (15 mcg x 3)/0.5 mL vaccine (STANDARD age 6 months and up) 0.5 mL 0.5 mL intramuscular During hospitalization Raquel Vasquez MD [Held by Provider] losartan (COZAAR) tablet 25 mg 25 mg oral Daily Gogo Yoo MD 25 mg at 07/15/24 0755 methocarbamoL (ROBAXIN) tablet 750 mg 750 mg oral Q6H PRN Raquel Vasquez MD metoprolol tartrate (LOPRESSOR) immediate release tablet 50 mg 50 mg oral BID Gogo Yoo MD 50mg at 07/16/24 0835 mirtazapine (REMERON) tablet 15 mg 15 mg oral Nightly Gogo Yoo MD 15 mg at 07/15/242002 multivit fuibecwy-vsgm-YB-calcium (THERA-M) tablet 1 tablet 1 tablet oral Daily Gogo Yoo MD 1 tablet at 07/16/24 0834 ondansetron (ZOFRAN) injection 4 mg 4 mg intravenous Q4H PRN Gogo Yoo MD [Held by Provider] spironolactone (ALDACTONE) tablet 25 mg 25 mg oral Daily Gogo Yoo MD 25 mg at 07/15/24 0755 thiamine (VITAMIN B1) tablet 100 mg 100 mg oral Daily Gogo Yoo MD 100 mg at 07/16/24 0835 traZODone (DESYREL) tablet 50 mg 50 mg oral Nightly Gogo Yoo MD 50 mg at 07/15/242002 A/P: Alcohol abuse/drug abuse [facility] protocol. Librium taper Continue folic acid, thiamine, multivitamin Plan is to dc door to door to rehab on Tuesday History of chronic heart failure Clinically Stable, compensated Resumed Farxiga, Lasix Aldactone/losartan on hold due to hyperkalemia History of paroxysmal atrial fibrillation Continue with tele monitoring Resumed home medications Cardizem, metoprolol, Eliquis History of COPD Not in exacerbation Albuterol nebs prn History of depression/PTSD Will resume Cymbalta, Remeron, trazodone, Xanax, again when med rec is done Hyperkalemia K 5.3, will hold losartan and aldactone Lokelma given, will repeat bmp in the morning Hyponatremia Na 130 this morning, no signs of volume overload on exam Will check pro bnp and urine lytes, repeat bmp in the morning These fluid and electrolyte abnormalities are being treated, evaluated or monitored: Hyponatremia from other Hyperkalemia-- Lokelma and follow electrolytes MDM- moderate Principal Problem: Alcohol abuse Resolved Problems: No resolved hospital problems. Voice recognition software [employer] Flu[employer] Direct was used dictate and transcribe this document. Roll Forming Machine Set Up Mechanic variances may occur. Despite proofreading, typographical errors may occur. Raquel Vasquez MD 07/16/2024 2:49 PM RAL ASSISTANT * Raquel Vasquez MD - 07/15/2024 2:24 PM CST General Medicine Daily Progress SUBJECTIVE Chief complaint of alcohol withdrawal Interval History: No acute events.Pt is feeling much better today. Continues on librium taper. Appetite is good. Continues on librium taper. OBJECTIVE Vitals: 24hr Min/Max: Temp Min: 35.7 ??C (96.3 ??F) Max: 36.3 ??C (97.4 ??F) Pulse Min: 80 Max: 98 BP Min: 114/90 Max: 119/80 Resp Min: 16 Max: 18 SpO2 Min: 95 % Max: 98 % Most Recent : Vitals: 07/15/24 1100 BP: 118/89 Pulse: 80 Resp: 18 Temp: 36.2 ??C (97.1 ??F) SpO2: 97% I/O last 2 completed shifts: In: 960 [P.O.:960] Out: - I/O this shift: In: 600 [P.O.:600] Out: - Physical Exam: Eyes: EOMI, SUSANNE, sclare non icteric Neck: supple, no nuchal ridigity, no gross carotid bruits appreciated Pharynx: No gross oral lesion, tongue midline, mucosa moist Lungs CTA Heart: [id number], no significant murmur or gallop Abd: +BS, Non Tender, Non distended, No gross hepatomegaly Lower Ext: No gross edema, pedal artery pulses are palpable bilaterally Neuro: No new deficits appreciated Musculoskeletal: no gross joint erythema, edema, tenderness Skin: No new change Lab/Current Medication Review: Recent Results (from the past 24 hours) Comprehensive metabolic panel Collection Time: 07/15/24 9:14 AM Result Value Ref Range Sodium 136 135 - 145 mmol/L Potassium, pl 4.2 3.3 - 4.9 mmol/L Chloride 100 97 - 110 mmol/L CO2 24 22 - 32 mmol/L Anion gap 12 2 - 15 mmol/L BUN 14 6 - 25 mg/dL Creatinine 0.88 0.80 - 1.30 mg/dL Glucose 125 70 - 199 mg/dL Calcium 9.0 8.5 - 10.3 mg/dL Bilirubin, total 0.6 0.1 - 1.2 mg/dL Protein, pl 6.8 6.5 - 8.5 g/dL Albumin 3.7 3.5 - 5.0 g/dL Alk phos 71 40 - 130 Units/L ALT 19 7 - 55 Units/L AST 22 10 - 50 Units/L CBC with auto differential Collection Time: 07/15/24 9:14 AM Result Value Ref Range WBC 6.1 3.8 - 9.9 K/cumm Hgb 14.4 13.0 - 17.5 g/dL Hct 43.2 38.9 - 50.3 % Plt 223 150 - 400 K/cumm MPV 9.3 9.1 - 12.3 fL RBC 4.70 4.30 - 5.80 M/cumm MCV 91.9 81.3 - 96.4 fL MCH 30.6 27.1 - 33.3 pg MCHC 33.3 32.3 - 35.7 g/dL RDW CV 13.0 11.1 - 14.9 % RDW SD 44.1 35.7 - 48.1 fL NRBC abs 0.00 0.00 - 0.01 K/cumm Differential, auto Collection Time: 07/15/24 9:14 AM Result Value Ref Range Neutrophil abs 2.5 1.5 - 6.5 K/cumm Imm gran abs 0.1 0.0 - 0.1 K/cumm Lymphocyte abs 2.4 0.8 - 3.3 K/cumm Monocyte abs 0.8 0.2 - 0.8 K/cumm Eosinophil abs 0.2 0.0 - 0.5 K/cumm Basophil abs 0.1 0.0 - 0.1 K/cumm Neutrophil pct 41.7 % Imm gran pct 1.8 % Lymphocyte pct 38.9 % Monocyte pct 13.8 % Eosinophil pct 2.6 % Basophil pct 1.2 % eGFR Collection Time: 07/15/24 9:14 AM Result Value Ref Range eGFR >90 >=60 mL/min/1.73 m2 No results found. Current Facility-Administered Medications Medication Dose Route Frequency Provider Last Rate Last Admin acetaminophen (TYLENOL) tablet 650 mg 650 mg oral Q4H PRN Gogo Yoo MD 650 mg at 07/14/24 1442 albuterol 2.5 mg /3 mL (0.083 %) nebulizer solution 2.5 mg 2.5 mg nebulization Q6H PRN (RT) Gogo Yoo MD apixaban (ELIQUIS) tablet 5 mg 5 mg oral BID Gogo Yoo MD 5 mg at 07/15/24 0755 atorvastatin (LIPITOR) tablet 40 mg 40 mg oral Daily Gogo Yoo MD 40 mg at 07/15/24 0755 chlordiazePOXIDE (LIBRIUM) capsule 25 mg 25 mg oral Q4H PRN Gogo Yoo MD 25 mg at 07/14/24 1030 Or chlordiazePOXIDE (LIBRIUM) capsule 25 mg 25 mg oral Q2H PRN Gogo Yoo MD 25 mg at 07/14/24 0534 Or LORazepam (ATIVAN) 1 mg in sodium chloride 0.9% (further dilution required) injection 1 mg intravenous Q1H PRN Gogo Yoo MD Or LORazepam (ATIVAN) injection 1 mg 1 mg intramuscular Q1H PRN Gogo Yoo MD Or LORazepam (ATIVAN) 2 mg in sodium chloride 0.9% (further dilution required) injection 2 mg intravenous Q1H PRN Gogo Yoo MD Or LORazepam (ATIVAN) injection 2 mg 2 mg intramuscular Q1H PRN Gogo Yoo MD chlordiazePOXIDE (LIBRIUM) capsule 50 mg 50 mg oral Q8H Raquel Vasquez MD 50 mg at 07/15/24 0918 Followed by [START ON 07/16/2024] chlordiazePOXIDE (LIBRIUM) capsule 25 mg 25 mg oral Q8H Raquel Vasquez MD dapagliflozin propanediol (FARXIGA) tablet 10 mg 10 mg oral Daily Gogo Yoo MD 10 mg at 07/15/24 0755 dicyclomine (BENTYL) capsule 20 mg 20 mg oral Q6H PRN Raquel Vasquez MD dilTIAZem CD (CARDIZEM CD) 24 hour capsule 300 mg 300 mg oral Daily Gogo Yoo MD 300 mg at 07/15/[address] (CYMBALTA) extended release capsule 60 mg 60 mg oral BID Gogo Yoo MD 60 mg at 07/15/24754 folic acid (FOLVITE) tablet 1 mg 1 mg oral Daily Gogo Yoo MD 1 mg at 07/15/24754 furosemide (LASIX) tablet 20 mg 20 mg oral Daily Gogo Yoo MD 20 mg at 07/15/24754 gabapentin (NEURONTIN) capsule 600 mg 600 mg oral TID Gogo Yoo MD 600 mg at 07/15/24754 hydrOXYzine (ATARAX) tablet 50 mg 50 mg oral Q6H PRN Raquel Vasquez MD influenza trivalent [id number] (FLULAVAL,FLUARIX,FLUZONE) 45 mcg (15 mcg x 3)/0.5 mL vaccine (STANDARD age 6 months and up) 0.5 mL 0.5 mL intramuscular During hospitalization Raquel Vasquez MD losartan (COZAAR) tablet 25 mg 25 mg oral Daily Gogo Yoo MD 25 mg at 07/15/24754 methocarbamoL (ROBAXIN) tablet 750 mg 750 mg oral Q6H PRN Raquel Vasquez MD metoprolol tartrate (LOPRESSOR) immediate release tablet 50 mg 50 mg oral BID Gogo Yoo MD 50mg at 07/15/24754 mirtazapine (REMERON) tablet 15 mg 15 mg oral Nightly Gogo Yoo MD 15 mg at 07/14/241939 multivit tmjqgidj-qbir-ND-calcium (THERA-M) tablet 1 tablet 1 tablet oral Daily Gogo Yoo MD 1 tablet at 07/15/24754 ondansetron (ZOFRAN) injection 4 mg 4 mg intravenous Q4H PRN Gogo Yoo MD spironolactone (ALDACTONE) tablet 25 mg 25 mg oral Daily Gogo Yoo MD 25 mg at 07/15/24754 thiamine (VITAMIN B1) tablet 100 mg 100 mg oral Daily Gogo Yoo MD 100 mg at 07/15/24754 traZODone (DESYREL) tablet 50 mg 50 mg oral Nightly Gogo Yoo MD 50 mg at 07/14/241939 A/P: Alcohol abuse/drug abuse Admit to telemetry medicine [facility] protocols Start on folic acid, thiamine, multivitamin Medical stabilization program to follow No acute events. Pt reports mild anxiety and hand tremor but overall feels much better today. Appetite is good. Continues on librium taper, overall doing better, will continue to monitor on CIWA Plan is to dc door to door to rehab once medically cleared. History of chronic heart failure Clinically Stable, compensated Awaiting medication reconciliation Resumed Farxiga, Lasix, Aldactone History of paroxysmal atrial fibrillation Continue with tele monitoring Resumed home medications Cardizem, metoprolol, Eliquis History of COPD Not in exacerbation Will resume albuterol History of depression/PTSD Will resume Cymbalta, Remeron, trazodone, Xanax, again when med rec is done MDM- moderate Principal Problem: Alcohol abuse Resolved Problems: No resolved hospital problems. Voice recognition software [employer] Direct was used dictate and transcribe this document. Roll Forming Machine Set Up Mechanic variances may occur. Despite proofreading, typographical errors may occur. Raquel Vasquez MD 07/15/2024 2:24 PM RAL ASSISTANT * Raquel Vasquez MD - 07/14/2024 2:40 PM CST General Medicine Daily Progress SUBJECTIVE Chief complaint of alcohol withdrawal Interval History: No acute events. Pt reports mild anxiety and hand tremor but overall feels much better today. Appetite is good. Will switch from prn librium to librium taper, monitor on CIWA. Plan is to dc door to door to rehab once medically cleared. OBJECTIVE Vitals: 24hr Min/Max: Temp Min: 35.7 ??C (96.3 ??F) Max: 36.3 ??C (97.4 ??F) Pulse Min: 62 Max: 128 BP Min: 117/57 Max: 139/99 Resp Min: 16 Max: 22 SpO2 Min: 92 % Max: 98 % Most Recent : Vitals: 07/14/24 1440 BP: 117/57 Pulse: 89 Resp: 16 Temp: (!) 35.7 ??C (96.3 ??F) SpO2: 98% I/O last 2 completed shifts: In: 720 [P.O.:720] Out: 225 [Urine:225] I/O this shift: In: 720 [P.O.:720] Out: - Physical Exam: Eyes: EOMI, SUSANNE, sclare non icteric Neck: supple, no nuchal ridigity, no gross carotid bruits appreciated Pharynx: No gross oral lesion, tongue midline, mucosa moist Lungs CTA Heart: [id number], no significant murmur or gallop Abd: +BS, Non Tender, Non distended, No gross hepatomegaly Lower Ext: No gross edema, pedal artery pulses are palpable bilaterally Neuro: No new deficits appreciated Musculoskeletal: no gross joint erythema, edema, tenderness Skin: No new change Lab/Current Medication Review: Recent Results (from the past 24 hours) Magnesium Collection Time: 07/13/24 3:01 PM Result Value Ref Range Magnesium 2.3 1.4 - 2.5 mg/dL Amylase Collection Time: 07/13/24 3:01 PM Result Value Ref Range Amylase 19 (L) 30 - 99 Units/L Lipase Collection Time: 07/13/24 3:01 PM Result Value Ref Range Lipase 26 10 - 99 Units/L Protime-INR Collection Time: 07/13/24 3:01 PM Result Value Ref Range PT 13.5 (H) 9.7 - 13.0 sec INR 1.24 (H) 0.90 - 1.20 aPTT Collection Time: 07/13/24 3:01 PM Result Value Ref Range aPTT 39 (H) 28 - 38 sec Ethanol Collection Time: 07/13/24 3:01 PM Result Value Ref Range Ethanol <10 <=10 mg/dL Hepatitis C antibody Blood Collection Time: 07/13/24 3:01 PM Specimen: Blood Result Value Ref Range Hep C Ab Nonreactive Nonreactive HIV 1/2 Antibody plus p24 Antigen Blood Collection Time: 07/13/24 3:01 PM Specimen: Blood Result Value Ref Range HIV 1/2 ab + p24 ag Nonreactive Nonreactive Comprehensive metabolic panel Collection Time: 07/14/24 5:15 AM Result Value Ref Range Sodium 135 135 - 145 mmol/L Potassium, pl 4.7 3.3 - 4.9 mmol/L Chloride 102 97 - 110 mmol/L CO2 22 22 - 32 mmol/L Anion gap 12 2 - 15 mmol/L BUN 13 6 - 25 mg/dL Creatinine 0.85 0.80 - 1.30 mg/dL Glucose 104 70 - 199 mg/dL Calcium 9.2 8.5 - 10.3 mg/dL Bilirubin, total 1.0 0.1 - 1.2 mg/dL Protein, pl 7.1 6.5 - 8.5 g/dL Albumin 3.9 3.5 - 5.0 g/dL Alk phos 77 40 - 130 Units/L ALT 19 7 - 55 Units/L AST 21 10 - 50 Units/L CBC with auto differential Collection Time: 07/14/24 5:15 AM Result Value Ref Range WBC 5.2 3.8 - 9.9 K/cumm Hgb 14.9 13.0 - 17.5 g/dL Hct 46.8 38.9 - 50.3 % Plt 198 150 - 400 K/cumm MPV 9.4 9.1 - 12.3 fL RBC 4.83 4.30 - 5.80 M/cumm MCV 96.9 (H) 81.3 - 96.4 fL MCH 30.8 27.1 - 33.3 pg MCHC 31.8 (L) 32.3 - 35.7 g/dL RDW CV 13.3 11.1 - 14.9 % RDW SD 47.5 35.7 - 48.1 fL NRBC abs 0.00 0.00 - 0.01 K/cumm Differential, auto Collection Time: 07/14/24 5:15 AM Result Value Ref Range Neutrophil abs 2.3 1.5 - 6.5 K/cumm Imm gran abs 0.1 0.0 - 0.1 K/cumm Lymphocyte abs 1.8 0.8 - 3.3 K/cumm Monocyte abs 0.8 0.2 - 0.8 K/cumm Eosinophil abs 0.2 0.0 - 0.5 K/cumm Basophil abs 0.1 0.0 - 0.1 K/cumm Neutrophil pct 43.3 % Imm gran pct 2.3 % Lymphocyte pct 33.9 % Monocyte pct 15.3 % Eosinophil pct 2.9 % Basophil pct 2.3 % eGFR Collection Time: 07/14/24 5:15 AM Result Value Ref Range eGFR >90 >=60 mL/min/1.73 m2 No results found. Current Facility-Administered Medications Medication Dose Route Frequency Provider Last Rate Last Admin acetaminophen (TYLENOL) tablet 650 mg 650 mg oral Q4H PRN Gogo Yoo MD albuterol 2.5 mg /3 mL (0.083 %) nebulizer solution 2.5 mg 2.5 mg nebulization Q6H PRN (RT) Gogo Yoo MD apixaban (ELIQUIS) tablet 5 mg 5 mg oral BID Gogo Yoo MD 5 mg at 07/14/24 0759 atorvastatin (LIPITOR) tablet 40 mg 40 mg oral Daily Gogo Yoo MD 40 mg at 07/14/24 0759 chlordiazePOXIDE (LIBRIUM) capsule 25 mg 25 mg oral Q4H PRN Gogo Yoo MD 25 mg at 07/14/24 1030 Or chlordiazePOXIDE (LIBRIUM) capsule 25 mg 25 mg oral Q2H PRN Gogo Yoo MD 25 mg at 07/14/24 0534 Or LORazepam (ATIVAN) 1 mg in sodium chloride 0.9% (further dilution required) injection 1 mg intravenous Q1H PRN Gogo Yoo MD Or LORazepam (ATIVAN) injection 1 mg 1 mg intramuscular Q1H PRN Gogo Yoo MD Or LORazepam (ATIVAN) 2 mg in sodium chloride 0.9% (further dilution required) injection 2 mg intravenous Q1H PRN Gogo Yoo MD Or LORazepam (ATIVAN) injection 2 mg 2 mg intramuscular Q1H PRN Gogo Yoo MD chlordiazePOXIDE (LIBRIUM) capsule 50 mg 50 mg oral Q6H Raquel Vasquez MD Followed by [START ON 07/15/2024] chlordiazePOXIDE (LIBRIUM) capsule 50 mg 50 mg oral Q8H Raquel Vasquez MD Followed by [START ON 07/16/2024] chlordiazePOXIDE (LIBRIUM) capsule 25 mg 25 mg oral Q8H Raquel Vasquez MD dapagliflozin propanediol (FARXIGA) tablet 10 mg 10 mg oral Daily Gogo Yoo MD 10 mg at 07/14/24 0759 dicyclomine (BENTYL) capsule 20 mg 20 mg oral Q6H PRN Raquel Vasquez MD dilTIAZem CD (CARDIZEM CD) 24 hour capsule 300 mg 300 mg oral Daily Gogo Yoo MD 300 mg at 07/14/[address] (CYMBALTA) extended release capsule 60 mg 60 mg oral BID Gogo Yoo MD 60 mg at 07/14/24 075 folic acid (FOLVITE) tablet 1 mg 1 mg oral Daily Gogo Yoo MD 1 mg at 07/14/24758 furosemide (LASIX) tablet 20 mg 20 mg oral Daily Gogo Yoo MD 20 mg at 07/14/24 075 gabapentin (NEURONTIN) capsule 600 mg 600 mg oral TID Gogo Yoo MD 600 mg at 07/14/24 075 hydrOXYzine (ATARAX) tablet 50 mg 50 mg oral Q6H PRN Raquel Vasquez MD influenza trivalent [id number] (FLULAVAL,FLUARIX,FLUZONE) 45 mcg (15 mcg x 3)/0.5 mL vaccine (STANDARD age 6 months and up) 0.5 mL 0.5 mL intramuscular During hospitalization Raquel Vasquez MD losartan (COZAAR) tablet 25 mg 25 mg oral Daily Gogo Yoo MD 25 mg at 07/14/24 075 methocarbamoL (ROBAXIN) tablet 750 mg 750 mg oral Q6H PRN Raquel Vasquez MD metoprolol tartrate (LOPRESSOR) immediate release tablet 50 mg 50 mg oral BID Gogo Yoo MD 50mg at 07/14/24 075 mirtazapine (REMERON) tablet 15 mg 15 mg oral Nightly Gogo Yoo MD 15 mg at 07/13/242002 multivit fxjujrow-lgud-QE-calcium (THERA-M) tablet 1 tablet 1 tablet oral Daily Gogo Yoo MD 1 tablet at 07/14/24 075 ondansetron (ZOFRAN) injection 4 mg 4 mg intravenous Q4H PRN Gogo Yoo MD spironolactone (ALDACTONE) tablet 25 mg 25 mg oral Daily Gogo Yoo MD 25 mg at 07/14/24 075 thiamine (VITAMIN B1) tablet 100 mg 100 mg oral Daily Gogo Yoo MD 100 mg at 07/14/24 075 traZODone (DESYREL) tablet 50 mg 50 mg oral Nightly Gogo Yoo MD 50 mg at 07/13/242003 A/P: Alcohol abuse/drug abuse Admit to telemetry medicine [facility] protocols Start on folic acid, thiamine, multivitamin Medical stabilization program to follow No acute events. Pt reports mild anxiety and hand tremor but overall feels much better today. Appetite is good. Will switch from prn librium to librium taper, monitor on CIWA. Plan is to dc door to door to rehab once medically cleared. History of chronic heart failure Clinically Stable, compensated Awaiting medication reconciliation Resumed Farxiga, Lasix, Aldactone History of paroxysmal atrial fibrillation Continue with tele monitoring Resumed home medications Cardizem, metoprolol, Eliquis History of COPD Not in exacerbation Will resume albuterol History of depression/PTSD Will resume Cymbalta, Remeron, trazodone, Xanax, again when med rec is done MDM -moderate Principal Problem: Alcohol abuse Resolved Problems: No resolved hospital problems. Voice recognition software [employer] was used dictate and transcribe this document. Roll Forming Machine Set Up Mechanic variances may occur. Despite proofreading, typographical errors may occur. Raquel Vasquez MD 07/14/2024 2:42 PM RAL ASSISTANT * June Anaya - 07/13/2024 5:22 PM CST Behavioral Health Integration (B[facility]) Navigator Note Navigator-Aware of consult. [facility] will be assigned when available. June Anaya Behavioral Health Navigator RAL ASSISTANT documented in this encounter H&P Notes * Gogo Yoo MD - 07/13/2024 2:08 PM CST History and Physical Date of Service: 07/13/2024 Primary Care Physician: Clinton Maddox MD [phone] CHIEF COMPLAINT: Medical stabilization program HPI: 63-year-old male with past medical history of alcohol abuse, depression, hypertension, PTSD, heart failure is being admitted for medical stabilization/detoxification program. Patient is interested and rehab program. Patient's last drink was this morning. He does have history of alcohol withdrawal but denies any seizures in the past. Denies any fevers, chills, abdominal pain, nausea, vomiting, tremors at the moment. Last bowel movement was yesterday.. History of methamphetamine use as well. Denies any IV drug abuse. Past Medical History: Diagnosis Date Depression Hypertension PTSD (post-traumatic stress disorder) History reviewed. No pertinent surgical history. Medications Prior to Admission Medication Sig Dispense Refill Last Dose/Taking apixaban (ELIQUIS) 5 mg tablet Take 1 tablet (5 mg total) by mouth 2 (two) times a day 07/13/2024 atorvastatin (LIPITOR) 40 mg tablet Take 1 tablet (40 mg total) by mouth daily 07/13/2024 dapagliflozin propanediol (Farxiga) 10 mg tablet Take 1 tablet (10 mg total) by mouth daily 30 tablet 11 07/13/2024 dilTIAZem CD (CARDIZEM CD) 300 mg 24 hr capsule Take 1 capsule (300 mg total) by mouth daily 30 capsule 11 07/13/[address] (Cymbalta) 60 mg capsule Take 1 capsule (60 mg total) by mouth every 12 hours 07/13/2024 furosemide (LASIX) 20 mg tablet Take 1 tablet (20 mg total) by mouth daily 30 tablet 11 07/13/2024 gabapentin (NEURONTIN) 300 mg capsule Take 2 capsules (600 mg total) by mouth 3 (three) times a dayPast Month hydrOXYzine (VISTARIL) 25 mg capsule Take 1 capsule (25 mg total) by mouth 3 (three) times a day asneeded for itching Past Month losartan (COZAAR) 25 mg tablet Take 1 tablet (25 mg total) by mouth daily 30 tablet 11 07/12/2024 metoprolol tartrate (LOPRESSOR) 50 mg immediate release tablet Take 1 tablet (50 mg total) by mouth2 (two) times a day (Patient taking differently: Take 1 tablet (50 mg total) by mouth daily) 180 tablet 3 07/13/2024 mirtazapine (REMERON) 15 mg tablet Take 1 tablet (15 mg total) by mouth nightly Past Month spironolactone (ALDACTONE) 25 mg tablet Take 1 tablet (25 mg total) by mouth daily 90 tablet 3 07/13/2024 traZODone (DESYREL) 50 mg tablet Take 1 tablet (50 mg total) by mouth nightly Past Month albuterol HFA (PROVENTIL HFA,VENTOLIN HFA,PROAIR HFA) 90 mcg/actuation inhaler Inhale 2 puffs every6 (six) hours as needed for wheezing or shortness of breath More than a month ALPRAZolam (XANAX) 0.25 mg tablet Take 1 tablet (0.25 mg total) by mouth 2 (two) times a day as needed for anxiety (Patient not taking: Reported on 11/10/2023) 10 tablet 0 More than a month ARIPiprazole (ABILIFY) 5 mg tablet daily (Patient not taking: Reported on 07/13/2024) Not Taking No Known Allergies Social History Tobacco Use Smoking status: Never Smokeless tobacco: None Substance and Sexual Activity Drug use: Yes Types: Amphetamines, Marijuana, Alcohol Sexual activity: None Alcohol Use: Alcohol Misuse (07/13/2024) AUDIT-C Frequency of Alcohol Consumption: 4 or more times a week Average Number of Drinks: 5 or 6 Frequency of Binge Drinking: Less than monthly Family history: Noncontributory Review of Systems: Review of Systems Constitutional: Positive for fatigue. Negative for fever. HENT: Negative. Eyes: Negative. Respiratory: Negative. Cardiovascular: Negative. Gastrointestinal: Negative. Endocrine: Negative. Genitourinary: Negative. Musculoskeletal: Negative. Neurological: Positive for weakness. Hematological: Negative. Psychiatric/Behavioral: Negative for agitation and confusion. OBJECTIVE: Vitals: Arrival Vitals Temp Pulse Resp BP SpO2 Temp src Heart Rate Source Patient Position BP Location FiO2 (%) Most Recent : There were no vitals filed for this visit. No intake/output data recorded. No intake/output data recorded. These fluid and electrolyte abnormalities are being treated, evaluated or monitored: No fluid or electrolyte disorders Physical Exam: Physical Exam Constitutional: General: He is not in acute distress. Appearance: He is not ill-appearing. HENT: Head: Normocephalic and atraumatic. Mouth/Throat: Pharynx: Oropharynx is clear. Eyes: General: No scleral icterus. Cardiovascular: Rate and Rhythm: Normal rate and regular rhythm. Pulmonary: Effort: Pulmonary effort is normal. Breath sounds: Normal breath sounds. Abdominal: General: Bowel sounds are normal. Palpations: Abdomen is soft. Musculoskeletal: Cervical back: Neck supple. Right lower leg: No edema. Left lower leg: No edema. Skin: General: Skin is warm. Neurological: Mental Status: He is alert and oriented to person, place, and time. Mental status is at baseline. Psychiatric: Mood and Affect: Mood normal. Lab/Radiology/Diagnostic Review: Recent Results (from the past 24 hours) CBC without differential Collection Time: 07/13/24 10:55 AM Result Value Ref Range WBC 8.9 3.8 - 9.9 K/cumm Hgb 14.6 13.0 - 17.5 g/dL Hct 44.2 38.9 - 50.3 % Plt 241 150 - 400 K/cumm MPV 9.2 9.1 - 12.3 fL RBC 4.78 4.30 - 5.80 M/cumm MCV 92.5 81.3 - 96.4 fL MCH 30.5 27.1 - 33.3 pg MCHC 33.0 32.3 - 35.7 g/dL RDW CV 12.9 11.1 - 14.9 % RDW SD 43.9 35.7 - 48.1 fL NRBC abs 0.00 0.00 - 0.01 K/cumm Comprehensive metabolic panel Collection Time: 07/13/24 10:55 AM Result Value Ref Range Sodium 135 135 - 145 mmol/L Potassium, pl 4.2 3.3 - 4.9 mmol/L Chloride 98 97 - 110 mmol/L CO2 25 22 - 32 mmol/L Anion gap 13 2 - 15 mmol/L BUN 12 6 - 25 mg/dL Creatinine 0.93 0.80 - 1.30 mg/dL Glucose 114 70 - 199 mg/dL Calcium 9.0 8.5 - 10.3 mg/dL Bilirubin, total 1.1 0.1 - 1.2 mg/dL Protein, pl 7.0 6.5 - 8.5 g/dL Albumin 4.2 3.5 - 5.0 g/dL Alk phos 81 40 - 130 Units/L ALT 18 7 - 55 Units/L AST 23 10 - 50 Units/L Drugs of Abuse Screen, Urine without Confirmation Collection Time: 07/13/24 10:55 AM Result Value Ref Range Amphetamine, ur Not Detected CutOff 500ng/mL Barbiturates, ur Not Detected CutOff 200ng/mL Benzodiazepines, ur Not Detected CutOff 100ng/mL Cannabinoids, ur Screen Positive, presumptive (A) CutOff 50 ng/mL Cocaine, ur Not Detected CutOff 150ng/mL Fentanyl, Ur Not Detected CutOff 5 ng/mL Methadone, ur Not Detected CutOff 300ng/mL Opiates, ur Not Detected CutOff 300ng/mL Oxycodone, ur Not Detected CutOff 100ng/mL Phencyclidine, ur Not Detected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 residence, and the patient was located at [facility] in the [facility]. My visit with the patient started at 1827 and ended at 1933. After being given an opportunity to ask questions about and discuss this type of visit, the patientand/or guardian verbally consented to proceeding with the video visit. The patient and/or guardian understands that they may be billed and/or responsible for any applicable copayments. The patient and/or guardian agrees to participate in a psychiatric assessment service via Interactive Video Conferencing with a Qualified Mental Health Professional. Patient and/or guardian understands that their privacy and confidentiality will be protected at all times and all reasonable and appropriate measures will be made to eliminate all confidentiality risks. Patient and/or guardian understands that the services they receive are part of the patient's hospital record. Patient and/or guardian is aware that the [facility] and Hospital Staff will have access to the patient's relevant medical information including psychiatric and/or psychological information, alcohol and/or drug use and mental health records.Patient and/or guardian understands this consent is part of the patient's medical record. RAL ASSISTANT documented in this encounter Nursing Notes * Amrita Perez RN - 07/18/2024 8:14 AM CST Reviewed discharge paperwork with pt. All questions answered. Pt declined flu shot. Pt walked to [facility] with all his belongings. RAL ASSISTANT documented in this encounter Miscellaneous Notes * Provider Query - Raquel Vasquez MD - 07/18/2024 8:20 AM CST Specify the significance of the abnormal BMI (body mass index) and document in the medical record and on the form below. Elevated BMI __x_Morbid (Severe) (Class 3) Obesity ___Other, specify below Additional Provider Response: Clinical Indicators/Treatments: H&P states: 63-year-old male with past medical history of alcohol abuse, depression, hypertension, PTSD, heart failure is being admitted for medical stabilization/detoxification program. BMI: 44.98 kg/m?? Abnormal Height: 177.8 cm (5' 10 ) as of 07/13/2024 Weight: 142.2 kg (313 lb 7.9 oz) as of 07/13/2024 References: From the ICD-10-CM Official Guidelines for Coding and Reporting, use of terms such as likely, suspected, possible, or probable (associated with a specific diagnosis that is being evaluated, monitored, or treated as if it exists) are acceptable and can be coded in the inpatient setting when documented at the time of discharge. BMI definitions per www.NHLBI.nih.gov BMI Weight Status <18.5 Underweight 18.5 to 24.9 Normal/Healthy 25 to 29.9 Overweight 30 to 39.9 Obesity >40 Extreme Obesity (Morbid) This documentation will become part of the patient???s medical record. Sincerely, Carmita Bolden RN, CCDS [phone] Clinical [employer] RAL ASSISTANT * Provider Query - Raquel Vasquez MD - 07/18/2024 8:20 AM CST Please specify the TYPE of Heart Failure, and document in the medical record and on the form below. Type ___ Systolic: Includes HFrEF (reduced) (LVEF </= 40%) and HFmrEF (mid-range) (LVEF 40-49%) ___Diastolic: Includes HFpEF (preserved) (LVEF >/= 50%) with consistent findings on echo or an elevated LVEDP in the presence of a normal or reduced LVEDV on cardiac catheterization ___ Combined Systolic and Diastolic ___ Other, specify below ___x CHF is a past medical history only Additional Provider Response: Clinical Indicators/Treatments: H&P states: 63-year-old male with past medical history of alcohol abuse, depression, hypertension, PTSD, heart failure is being admitted for medical stabilization/detoxification program. 07-15-2024 Progress Note states: History of chronic heart failure, Clinically Stable, compensated - Resumed Farxiga, Lasix, Aldactone 06-15-2023 Last echo on file: CONCLUSIONS: Irregular rhythm. Left ventricular systolic function at the lower limit of normal. Ejection fraction is visually estimated at 50 to 55 %. References: CHF Diagnostic Criteria CHF The commonly used [place] Diagnostic Criteria for Heart Failure requires the presence of 2 major criteria or 1 major and 2 minor criteria to make the diagnosis of heart failure. MAJOR CRITERIA MINOR CRITERIA Acute Pulmonary Edema Cardiomegaly Hepatojugular Reflux Neck Vein Distention Paroxysmal Nocturnal Dyspnea/Orthopnea Ankle Edema Dyspnea on Exertion Hepatomegaly Nocturnal Cough Pleural Effusion Tachycardia: HR>120 bpm This diagnostic tool is highly sensitive for the diagnosis of heart failure but has a relatively low specificity There is no single, noninvasive diagnostic test that serves as a gold standard for HF, since it is largely a clinical diagnosis based upon a careful history, physical examination, laboratory, and imaging data. Diastolic dysfunction or systolic dysfunction without mention of heart failure is not considered heart failure. If a provider believes patient has CHF in the absence of above clinical indicators, please documentrationale and clinical impression in detail. If acute or acute/chronic CHF is suspected and no IV diuretics are provided, please provide detailed rationale regarding acuity. General CHF Documentation Practices To be reported accurately, all instances of CHF require documentation of both ACUITY and TYPE Acuity: Acute-- rapid onset of new or worsening signs and symptoms of HF Chronic Acute on Chronic (may also be documented as ???exacerbated?? or ???decompensated?? ) Type: Systolic Includes HFrEF (LVEF </= 40%) and HFmrEF (LVEF 40-49%) Diastolic (or HFpEF)--LVEF >/= 50% with consistent findings on echo or an elevated LVEDP in the presence of a normal or reduced LVEDV on cardiac catheterization Combined systolic and diastolic Right-sided HF-- may be due to systolic left-sided HF, RV cardiomyopathy, valvular disease or lung disease such as pulmonary HTN, PE, or COPD Document any of the following if applicable: Biventricular failure End stage heart failure (AHA/ACC classification stage D) Left ventricular heart failure Rheumatic heart failure CHF References: Heart failure: Clinical manifestations and diagnosis in adults - UpToDate The epidemiology of congestive heart failure: the [place] Heart Study perspective - [facility] (nih.gov) Congestive Heart Failure - StatPearls - [facility] (nih.gov) Acute Heart Failure: Definition, Classification and Epidemiology - [facility] (nih.gov) From the ICD-10-CM Coding Guidelines, use of terms such as likely, suspected, possible, or probable(associated with a specific diagnosis that is being evaluated, monitored, or treated as if it exists) are acceptable and can be coded in the inpatient setting when documented at the time of discharge. This documentation will become part of the patient???s medical record. Sincerely, Carmita Bolden RN, CCDS [phone] Clinical [employer] RAL ASSISTANT * Plan of Care - Tori Rubio RN - 07/18/2024 3:29 AM CST Goals: Clinical Goals for the Shift: vss, free of fall or injury, monitor and medicate withdrawl symptoms Branch Associate Patient Centered Goal for Treatment: maintain sobriety Summary: VSS. Pt is alert and oriented x4 and pleasant. Pt is up independently and has remained free of falls and injuries. Pt turns self. Pt voiced no complaints during this shift. Pt comfortable onroom air. Pt resting comfortable in chair with call light within reach. Continue to educate patienton plan of care and discharge planning. Patient was living at home prior to admission and dischargeplan is to go door to door at [place]. Discharge in morning. Problem: Discharge Planning Goal: Understanding discharge needs will improve Outcome: Progressing Problem: Coping Goal: Verbalization of decreased anxiety will be supported Outcome: Progressing Goal: Able to verbalize concerns and demonstrate effective coping strategies Outcome: Progressing Goal: Ability to identify and develop effective coping behavior will improve Outcome: Progressing Problem: Physical Regulation Goal: Will remain free from infection Outcome: Progressing Goal: Ability to maintain clinical measurements within normal limits will improve Outcome: Progressing Problem: Safety Goal: Free from injury or harm Outcome: Progressing Problem: Self-injurious Low Risk Goal: Knowledge of therapies/resources will increase Outcome: Progressing Problem: Neurosensory Goal: Achieves stable or improved neurological status Outcome: Progressing Problem: Respiratory Goal: Achieves optimal ventilation and oxygenation Outcome: Progressing Problem: Cardiovascular Goal: Absence of cardiac dysrhythmias or at baseline Outcome: Progressing Problem: Skin/Tissue Integrity Goal: Skin integrity remains intact Outcome: Progressing Problem: Musculoskeletal Goal: Return mobility to safest level of function Outcome: Progressing Problem: Gastrointestinal Goal: Maintains or returns to baseline bowel function Outcome: Progressing Problem: Lack of Knowledge Goal: Ability to develop a pain control plan will improve Outcome: Progressing Problem: Medication Goal: Satisfaction with pain management medication regimen will improve Outcome: Progressing Problem: Sensory Goal: Ability to identify factors that increase pain levels will improve while working to decrease the patient's pain levels Outcome: Progressing Problem: Coping Goal: Ability to cope will improve Outcome: Progressing Problem: Health Behavior Goal: Identification of resources available to assist in meeting health care needs will improve Outcome: Progressing RAL ASSISTANT * Plan of Care - Amrita Perez RN - 07/17/2024 4:58 PM CST Goals: Clinical Goals for the Shift: VSS. no falls or injuries Alf Patient Centered Goal for Treatment: maintain sobriety Summary: VSS. A&Ox4. Pt had no c/o this shift. No falls or injuries. RAL ASSISTANT * Plan of Care - Tori Rubio RN - 07/17/2024 3:16 AM CST Goals: Clinical Goals for the Shift: vss, labs stable, monitor withdrawal symptoms Branch Associate Patient Centered Goal for Treatment: maintain sobriety Summary: VSS. Pt is alert and oriented x4 and pleasant. Pt is up independently and has remained free of falls and injuries. Pt turns self. Pt voiced no complaints during this shift. Pt remains on room air. Pt resting comfortable in room with call light within reach. Continue to monitor and medicatewithdrawal symptoms according to scoring. Continue to educate patient on plan of care and dischargeplanning. Patient was living at home prior to admission and discharge plan is to go door to door [facility] for inpatient treatment. Discharge on Tuesday 07/18. Problem: Discharge Planning Goal: Understanding discharge needs will improve Outcome: Progressing Problem: Coping Goal: Verbalization of decreased anxiety will be supported Outcome: Progressing Goal: Able to verbalize concerns and demonstrate effective coping strategies Outcome: Progressing Goal: Ability to identify and develop effective coping behavior will improve Outcome: Progressing Problem: Physical Regulation Goal: Will remain free from infection Outcome: Progressing Goal: Ability to maintain clinical measurements within normal limits will improve Outcome: Progressing Problem: Safety Goal: Free from injury or harm Outcome: Progressing Problem: Self-injurious Low Risk Goal: Knowledge of therapies/resources will increase Outcome: Progressing Problem: Neurosensory Goal: Achieves stable or improved neurological status Outcome: Progressing Problem: Respiratory Goal: Achieves optimal ventilation and oxygenation Outcome: Progressing Problem: Cardiovascular Goal: Absence of cardiac dysrhythmias or at baseline Outcome: Progressing Problem: Skin/Tissue Integrity Goal: Skin integrity remains intact Outcome: Progressing Problem: Musculoskeletal Goal: Return mobility to safest level of function Outcome: Progressing Problem: Gastrointestinal Goal: Maintains or returns to baseline bowel function Outcome: Progressing Problem: Lack of Knowledge Goal: Ability to develop a pain control plan will improve Outcome: Progressing Problem: Medication Goal: Satisfaction with pain management medication regimen will improve Outcome: Progressing Problem: Sensory Goal: Ability to identify factors that increase pain levels will improve while working to decrease the patient's pain levels Outcome: Progressing Problem: Coping Goal: Ability to cope will improve Outcome: Progressing Problem: Health Behavior Goal: Identification of resources available to assist in meeting health care needs will improve Outcome: Progressing RAL ASSISTANT * Plan of Care - Amrita Perez RN - 07/16/2024 4:06 PM CST Goals: Clinical Goals for the Shift: VSS. no falls or injuries Branch Associate Patient Centered Goal for Treatment: maintain sobriety Summary: VSS. A&Ox4. No falls or injuries. Pt on RA. RAL ASSISTANT * Plan of Care - Tori Rubio RN - 07/16/2024 4:54 AM CST Goals: Clinical Goals for the Shift: vss, labs stable, monitor withdrawal symptoms, free of fall or injury Alf Patient Centered Goal for Treatment: maintain sobriety Summary: VSS. Pt is alert and oriented x4. Pt is up independently and has remained free of falls and injuries. Pt turns self. Pt voiced no complaints during this shift. Pt remains on room air. Pt resting comfortable in bed with call light within reach. Continue to monitor and medicate withdrawal symptoms according to scoring. Continue to educate patient on plan of care and discharge planning. Patient was living at home prior to admission and discharge plan is to go to [facility]. No discharge orders at this time. Problem: Discharge Planning Goal: Understanding discharge needs will improve Outcome: Progressing Problem: Coping Goal: Verbalization of decreased anxiety will be supported Outcome: Progressing Goal: Able to verbalize concerns and demonstrate effective coping strategies Outcome: Progressing Goal: Ability to identify and develop effective coping behavior will improve Outcome: Progressing Problem: Physical Regulation Goal: Will remain free from infection Outcome: Progressing Goal: Ability to maintain clinical measurements within normal limits will improve Outcome: Progressing Problem: Safety Goal: Free from injury or harm Outcome: Progressing Problem: Self-injurious Low Risk Goal: Knowledge of therapies/resources will increase Outcome: Progressing Problem: Neurosensory Goal: Achieves stable or improved neurological status Outcome: Progressing Problem: Respiratory Goal: Achieves optimal ventilation and oxygenation Outcome: Progressing Problem: Cardiovascular Goal: Absence of cardiac dysrhythmias or at baseline Outcome: Progressing Problem: Skin/Tissue Integrity Goal: Skin integrity remains intact Outcome: Progressing Problem: Musculoskeletal Goal: Return mobility to safest level of function Outcome: Progressing Problem: Gastrointestinal Goal: Maintains or returns to baseline bowel function Outcome: Progressing Problem: Lack of Knowledge Goal: Ability to develop a pain control plan will improve Outcome: Progressing Problem: Medication Goal: Satisfaction with pain management medication regimen will improve Outcome: Progressing Problem: Sensory Goal: Ability to identify factors that increase pain levels will improve while working to decrease the patient's pain levels Outcome: Progressing Problem: Coping Goal: Ability to cope will improve Outcome: Progressing Problem: Health Behavior Goal: Identification of resources available to assist in meeting health care needs will improve Outcome: Progressing RAL ASSISTANT * Plan of Care - Surjit Mclaughlin RN - 07/15/2024 6:48 PM CST Problem: Discharge Planning Goal: Understanding discharge needs will improve Outcome: Progressing Flowsheets (Taken 07/15/2024754) Understanding of discharge needs will improve: Discuss information regarding discharge instructions Problem: Coping Goal: Verbalization of decreased anxiety will be supported Outcome: Progressing Flowsheets (Taken 07/15/2024754) Verbalization of decreased anxiety will be supported: Identify effective coping behavior Goal: Able to verbalize concerns and demonstrate effective coping strategies Outcome: Progressing Flowsheets (Taken 07/15/2024754) Able to verbalize concerns and demonstrates effective coping strategies: Assist patient/family to identify coping skills, available support systems and cultural and spiritual values Goal: Ability to identify and develop effective coping behavior will improve Outcome: Progressing Flowsheets (Taken 07/15/2024754) Ability to identify and develop effective coping behavior will improve: Perform depression screening Problem: Physical Regulation Goal: Will remain free from infection Outcome: Progressing Flowsheets (Taken 07/15/2024754) Will remain free of infection: Implement infection prevention measures Goal: Ability to maintain clinical measurements within normal limits will improve Outcome: Progressing Flowsheets (Taken 07/15/2024754) Ability to maintain clinical measurements within normal limits will improve: Monitor weight and identify body mass index Problem: Safety Goal: Free from injury or harm Outcome: Progressing Flowsheets (Taken 07/15/2024754) Free from injury or harm: Educate patient/family on patient safety, including physical limitations Problem: Self-injurious Low Risk Goal: Knowledge of therapies/resources will increase Outcome: Progressing Flowsheets (Taken 07/15/2024754) Knowledge of therapies/resources will increase: Instruct on available therapies/resources for symptoms management Problem: Neurosensory Goal: Achieves stable or improved neurological status Outcome: Progressing Flowsheets (Taken 07/15/2024754) Achieves Stable or Improved Neurological Status: Assess for and report changes in neurological status Problem: Respiratory Goal: Achieves optimal ventilation and oxygenation Outcome: Progressing Flowsheets (Taken 07/15/2024754) Achieves optimal ventilation and oxygenation: Assess for changes in respiratory status Problem: Cardiovascular Goal: Absence of cardiac dysrhythmias or at baseline Outcome: Progressing Flowsheets (Taken 07/15/2024754) Absence of cardiac dysrhythmias or at baseline: Continuous cardiac monitoring, monitor vital signs,obtain 12 lead EKG if indicated Problem: Skin/Tissue Integrity Goal: Skin integrity remains intact Outcome: Progressing Flowsheets (Taken 07/15/2024754) Skin integrity remains intact: Assess and document risk factors for pressure injury development Problem: Musculoskeletal Goal: Return mobility to safest level of function Outcome: Progressing Flowsheets (Taken 07/15/2024 075) Return mobility to safest level of function: Assess patient stability and activity tolerance for standing, transferring and ambulating with or without assistive devices Problem: Gastrointestinal Goal: Maintains or returns to baseline bowel function Outcome: Progressing Flowsheets (Taken 07/15/2024 075) Maintains or returns to baseline bowel function: Assess bowel function, evaluate bowel sounds and signs of abdominal distention Problem: Lack of Knowledge Goal: Ability to develop a pain control plan will improve Outcome: Progressing Flowsheets (Taken 07/15/2024754) Ability to develop a pain control plan will improve: Explain causes of pain and how long pain can be expected to last Problem: Medication Goal: Satisfaction with pain management medication regimen will improve Outcome: Progressing Problem: Sensory Goal: Ability to identify factors that increase pain levels will improve while working to decrease the patient's pain levels Outcome: Progressing Problem: Coping Goal: Ability to cope will improve Outcome: Progressing Problem: Health Behavior Goal: Identification of resources available to assist in meeting health care needs will improve Outcome: Progressing Goals: Clinical Goals for the Shift: VSS, remain free from falls and injury, stable labs, rest comfortably, manage withdrawal Branch Associate Patient Centered Goal for Treatment: maintain sobriety Summary: VSS, Patient has been free from falls and injury this shift, Patients labs have been stable, patient has been resting comfortably in room, patient has had no complaints this shift, patients withdrawal has been managed with prescribed medications, patient is A&Ox4, Ind in room RAL ASSISTANT * Plan of Care - Ayesha Trujillo RN - 07/15/2024 3:42 AM CST Goals: Clinical Goals for the Shift: Pt will remain hemodynamically stable, support S/S of withdrawal Branch Associate Patient Centered Goal for Treatment: Maintain sobriety Summary: Pt remains hemodynamically stable. VSS. S/S of withdrawal treated. Pt remains with rate controlled on telemetry. Assessment of pt's baseline is established at the beginning of the shift in flowsheets. Patient reassessed per order, unexpected findings and/or deviations captured in flowsheets. Frequent safety checks and comfort rounding provided. Orders and nursing care completed as ordered and as needed. Patient monitored for response to interventions and treatments. Pt states that painis controlled. Pt remains free from injuries. Call light within reach. Pt calling out appropriately. Will report changes in condition to MD. RAL ASSISTANT * Plan of Care - Surjit Mclaughlin RN - 07/14/2024 6:16 PM CST Problem: Discharge Planning Goal: Understanding discharge needs will improve Outcome: Progressing Flowsheets (Taken 07/14/2024758) Understanding of discharge needs will improve: Discuss information regarding discharge instructions Problem: Coping Goal: Verbalization of decreased anxiety will be supported Outcome: Progressing Flowsheets (Taken 07/14/2024758) Verbalization of decreased anxiety will be supported: Identify effective coping behavior Goal: Able to verbalize concerns and demonstrate effective coping strategies Outcome: Progressing Flowsheets (Taken 07/14/2024758) Able to verbalize concerns and demonstrates effective coping strategies: Assist patient/family to identify coping skills, available support systems and cultural and spiritual values Goal: Ability to identify and develop effective coping behavior will improve Outcome: Progressing Flowsheets (Taken 07/14/2024758) Ability to identify and develop effective coping behavior will improve: Perform depression screening Problem: Physical Regulation Goal: Will remain free from infection Outcome: Progressing Flowsheets (Taken 07/14/2024758) Will remain free of infection: Implement infection prevention measures Goal: Ability to maintain clinical measurements within normal limits will improve Outcome: Progressing Flowsheets (Taken 07/14/2024758) Ability to maintain clinical measurements within normal limits will improve: Monitor weight and identify body mass index Problem: Safety Goal: Free from injury or harm Outcome: Progressing Flowsheets (Taken 07/14/2024758) Free from injury or harm: Educate patient/family on patient safety, including physical limitations Problem: Self-injurious Low Risk Goal: Knowledge of therapies/resources will increase Outcome: Progressing Flowsheets (Taken 07/14/2024758) Knowledge of therapies/resources will increase: Instruct on available therapies/resources for symptoms management Problem: Neurosensory Goal: Achieves stable or improved neurological status Outcome: Progressing Flowsheets (Taken 07/14/2024758) Achieves Stable or Improved Neurological Status: Assess for and report changes in neurological status Problem: Respiratory Goal: Achieves optimal ventilation and oxygenation Outcome: Progressing Flowsheets (Taken 07/14/2024758) Achieves optimal ventilation and oxygenation: Assess for changes in respiratory status Problem: Cardiovascular Goal: Absence of cardiac dysrhythmias or at baseline Outcome: Progressing Flowsheets (Taken 07/14/2024758) Absence of cardiac dysrhythmias or at baseline: Continuous cardiac monitoring, monitor vital signs,obtain 12 lead EKG if indicated Problem: Skin/Tissue Integrity Goal: Skin integrity remains intact Outcome: Progressing Flowsheets (Taken 07/14/2024758) Skin integrity remains intact: Assess and document risk factors for pressure injury development Problem: Musculoskeletal Goal: Return mobility to safest level of function Outcome: Progressing Flowsheets (Taken 07/14/2024758) Return mobility to safest level of function: Assess patient stability and activity tolerance for standing, transferring and ambulating with or without assistive devices Problem: Gastrointestinal Goal: Maintains or returns to baseline bowel function Outcome: Progressing Flowsheets (Taken 07/14/2024758) Maintains or returns to baseline bowel function: Assess bowel function, evaluate bowel sounds and signs of abdominal distention Goals: Clinical Goals for the Shift: VSS, remain free from falls and injury, stabel labs, rest comfortably, manage withdrawal Alf Patient Centered Goal for Treatment: maintain sobriety Summary: VSS, patient has been free from falls and injury this shift, patents labs have been stable, patient has complained of some anxiety PRN given, patients withdrawal has been managed with prescribed medications, patient has been resting comfortably in room, Patient is A&Ox4, Ind in room RAL ASSISTANT * Plan of Care - Amrita Bolden RN - 07/14/2024 4:25 AM CST Goals: Clinical Goals for the Shift: VSS; rest; manage withdrawal sx; free of falls/ injury Branch Associate Patient Centered Goal for Treatment: maintain sobriety and placement at [facility] Summary: Pt A&Ox4. SBA for care/ transfers. Medications given as ordered. Pt c/o anxiety/ restlessness; PRN medication given for withdrawal sx. 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 Pt had psych consult at start of shift- see psych note. Pt talkative and friendly with staff. Snacks provided as requested. Continues on telemetry; monitor reading afib/aflutter. Pt states he has been out of his home medications for about 2 weeks. PO fluids at bedside. Call light in reach. Bed alarm in place for safety. [facility] Problem: Discharge Planning Goal: Understanding discharge needs will improve Outcome: Ongoing Flowsheets (Taken 07/13/20241999) Understanding of discharge needs will improve: Identify discharge learning needs (meds, wound care,etc.) Problem: Coping Goal: Verbalization of decreased anxiety will be supported Outcome: Ongoing Flowsheets (Taken 07/13/20241999) Verbalization of decreased anxiety will be supported: Identify effective coping behavior Encourage verbalization of feelings Provide emotional support Goal: Able to verbalize concerns and demonstrate effective coping strategies Outcome: Ongoing Flowsheets (Taken 07/13/20241999) Able to verbalize concerns and demonstrates effective coping strategies: Assist patient/family to identify coping skills, available support systems and cultural and spiritual values Provide emotional support, including active listening and acknowledgement of concerns of patient and caregivers Goal: Ability to identify and develop effective coping behavior will improve Outcome: Ongoing Flowsheets (Taken 07/13/20241999) Ability to identify and develop effective coping behavior will improve: Encourage verbalization of feelings Problem: Physical Regulation Goal: Will remain free from infection Outcome: Ongoing Flowsheets (Taken 07/13/20241999) Will remain free of infection: Implement infection prevention measures Monitor for signs and symptoms of infection Goal: Ability to maintain clinical measurements within normal limits will improve Outcome: Ongoing Flowsheets (Taken 07/13/20241999) Ability to maintain clinical measurements within normal limits will improve: Monitor hemodynamic parameters Monitor response to treatment Problem: Safety Goal: Free from injury or harm Outcome: Ongoing Flowsheets (Taken 07/13/20241999) Free from injury or harm: Educate patient/family on patient safety, including physical limitations Discuss fall prevention measures and assess risk factors for falls Problem: Self-injurious Low Risk Goal: Knowledge of therapies/resources will increase Outcome: Ongoing Flowsheets (Taken 07/13/20241999) Knowledge of therapies/resources will increase: Instruct on available therapies/resources for symptoms management Problem: Neurosensory Goal: Achieves stable or improved neurological status Outcome: Ongoing Flowsheets (Taken 07/13/20241999) Achieves Stable or Improved Neurological Status: Assess for and report changes in neurological status Problem: Respiratory Goal: Achieves optimal ventilation and oxygenation Outcome: Ongoing Flowsheets (Taken 07/13/20241999) Achieves optimal ventilation and oxygenation: Assess for changes in respiratory status Problem: Cardiovascular Goal: Absence of cardiac dysrhythmias or at baseline Outcome: Ongoing Flowsheets (Taken 07/13/20241999) Absence of cardiac dysrhythmias or at baseline: Continuous cardiac monitoring, monitor vital signs,obtain 12 lead EKG if indicated Problem: Skin/Tissue Integrity Goal: Skin integrity remains intact Outcome: Ongoing Flowsheets (Taken 07/13/20241999) Skin integrity remains intact: Assess and document risk factors for pressure injury development Assess and document skin integrity Monitor for areas of redness and/or skin breakdown Problem: Musculoskeletal Goal: Return mobility to safest level of function Outcome: Ongoing Flowsheets (Taken 07/13/20241999) Return mobility to safest level of function: Assess patient stability and activity tolerance for standing, transferring and ambulating with or without assistive devices Assist with transfers and ambulation using safe patient handling equipment as needed Obtain PT/OT consults as needed Problem: Gastrointestinal Goal: Maintains or returns to baseline bowel function Outcome: Ongoing Flowsheets (Taken 07/13/20241999) Maintains or returns to baseline bowel function: Assess bowel function, evaluate bowel sounds and signs of abdominal distention RAL ASSISTANT RAL ASSISTANT * Plan of Care - Simone Weeks RN - 07/13/2024 3:53 PM CST Problem: Discharge Planning Goal: Understanding discharge needs will improve Outcome: Ongoing Flowsheets (Taken 07/13/2024 1417) Understanding of discharge needs will improve: Identify discharge learning needs (meds, wound care, etc.) Arrange for needed discharge resources and transportation as appropriate Identify discharge barriers Problem: Coping Goal: Verbalization of decreased anxiety will be supported Outcome: Ongoing Flowsheets (Taken 07/13/20241416) Verbalization of decreased anxiety will be supported: Identify effective coping behavior Encourage verbalization of feelings Provide emotional support Goal: Able to verbalize concerns and demonstrate effective coping strategies Outcome: Ongoing Flowsheets (Taken 07/13/20241416) Able to verbalize concerns and demonstrates effective coping strategies: Provide emotional support,including active listening and acknowledgement of concerns of patient and caregivers Goal: Ability to identify and develop effective coping behavior will improve Outcome: Ongoing Flowsheets (Taken 07/13/20241416) Ability to identify and develop effective coping behavior will improve: Encourage verbalization of feelings Problem: Physical Regulation Goal: Will remain free from infection Outcome: Ongoing Flowsheets (Taken 07/13/20241416) Will remain free of infection: Monitor for signs and symptoms of infection Goal: Ability to maintain clinical measurements within normal limits will improve Outcome: Ongoing Flowsheets (Taken 07/13/20241416) Ability to maintain clinical measurements within normal limits will improve: Monitor hemodynamic parameters Problem: Safety Goal: Free from injury or harm Outcome: Ongoing Flowsheets (Taken 07/13/20241416) Free from injury or harm: Educate patient/family on patient safety, including physical limitations Instruct patient to call for assistance with activity based on assessment Provide safe environment, modify environment to reduce risk of injury Consider PT/OT consult to assist with strengthening/mobility Discuss fall prevention measures and assess risk factors for falls Goals: Clinical Goals for the Shift: Orientation to the unit, manage withdrawl sx, VSS, labs WDL, free from falls and injury. Branch Associate Patient Centered Goal for Treatment: maintain sobriety Summary: Patient is A&Ox 4 and up independently. Scheduled medications given as ordered. Orientation to the unit provided. Vital signs remained stable on r/a.Patient remains free from falls and injury. Patient's call light is within reach and patient calls out appropriately. Plan of care ongoing. RAL ASSISTANT documented in this encounter Plan of Treatment Not on file documented as of this encounter Procedures Procedure Name Priority Date/Time Associated Diagnosis Comments EGFR Routine 07/17/2024 5:25 AM GENERAL ASSISTANT COMPREHENSIVE METABOLIC PANEL Routine 07/17/2024 5:25 AM GENERAL ASSISTANT DIFFERENTIAL AUTO Routine 07/16/2024 8:1 0 AM GENERAL ASSISTANT CBC WITH AUTO DIFFERENTIAL Routine 07/16/2024 8:10 AM GENERAL ASSISTANT EGFR Routine 07/16/2024 4:34 AM GENERAL ASSISTANT PRO B-TYPE NATRIURETIC PEPTIDE Add-On 07/16/2024 4:34 AM GENERAL ASSISTANT COMPREHENSIVE METABOLIC PANEL Routine 07/16/2024 4:34 AM GENERAL ASSISTANT EGFR Routine 07/15/2024 9:14 AM GENERAL ASSISTANT DIFFERENTIAL AUTO Routine 07/15/2024 9:1 4 AM GENERAL ASSISTANT CBC WITH AUTO DIFFERENTIAL Routine 07/15/2024 9:14 AM GENERAL ASSISTANT COMPREHENSIVE METABOLIC PANEL Routine 07/15/2024 9:14 AM GENERAL ASSISTANT EGFR Routine 07/14/2024 5:15 AM GENERAL ASSISTANT DIFFERENTIAL AUTO Routine 07/14/2024 5:1 5 AM GENERAL ASSISTANT CBC WITH AUTO DIFFERENTIAL Routine 07/14/2024 5:15 AM GENERAL ASSISTANT COMPREHENSIVE METABOLIC PANEL Routine 07/14/2024 5:15 AM GENERAL ASSISTANT HIV 1/2 ANTIBODY PLUS P24 ANTIGEN Routine 07/13/2024 3:01 PM GENERAL ASSISTANT HEPATITIS C ANTIBODY Routine 07/13/2024 3:01 PM GENERAL ASSISTANT APTT STAT 07/13/2024 3:01 PM GENERAL ASSISTANT PROTIME-INR STAT 07/13/2024 3:01 PM GENERAL ASSISTANT MAGNESIUM Routine 07/13/2024 3:01 PM GENERAL ASSISTANT LIPASE STAT 07/13/2024 3:01 PM GENERAL ASSISTANT AMYLASE STAT 07/13/2024 3:01 PM GENERAL ASSISTANT ETHANOL STAT 07/13/2024 3:01 PM GENERAL ASSISTANT documented in this encounter Results * eGFR (07/17/2024 5:25 AM GENERAL ASSISTANT) eGFR >90 >=60 mL/min/1. 73 m2 Comment: [...] last reviewed 2021. Blood 07/17/2024 5:25 AM GENERAL ASSISTANT 07/17/2024 6:16 AM GENERAL ASSISTANT us Gogo Yoo MD LAB BLOOD ORDERABLES Final Resu lt [facility] ([place]) 1 [facility] Department [place] [address] * Comprehensive metabolic panel (07/17/2024 5:25 AM GENERAL ASSISTANT) Sodium 138 135 - 145 mmol/L Potassium, [...] [facility] ([place]) Blood 07/17/2024 5:25 AM GENERAL ASSISTANT 07/17/2024 6:16 AM GENERAL ASSISTANT us Gogo Yoo MD LAB BLOOD ORDERABLES Final Resu lt [facility] ([place]) 1 [facility] Department [place] [address] * Differential, auto (07/16/2024 8:10 AM GENERAL ASSISTANT) Neutrophil abs 2.0 1.5 - 6.5 K/cumm Imm gran abs 0.1 0.0 - 0.1 K/cumm [facility] ([place]) Lymphocyte abs 2.4 0.8 - 3.3 K/cumm [facility] ([place]) Monocyte abs 0.8 0.2 - 0.8 K/cumm [facility] ([place]) Eosinophil abs 0.2 0.0 - 0.5 K/cumm [facility] ([place]) Basophil abs 0.1 0.0 - 0.1 K/cumm [facility] ([place]) Neutrophil pct 35.9 % [facility] ([place]) Comment: Interpretive Data Percent cell count reference ranges are not reported, since discordance with absolute values may lead to misinterpretation of CBC data. Current Interpretive Data was last revised on 2017. Imm gran pct 1.4 % [facility] ([place]) Comment: Interpretive Data Percent cell count reference ranges are not reported, since discordance with absolute values may lead to misinterpretation of CBC data. Current Interpretive Data was last revised on 2017. Lymphocyte pct 42.9 % [facility] ([place]) Comment: Interpretive Data Percent cell count reference ranges are not reported, since discordance with absolute values may lead to misinterpretation of CBC data. Current Interpretive Data was last revised on 2017. Monocyte pct 14.9 % [facility] ([place]) Comment: Interpretive Data Percent cell count reference ranges are not reported, since discordance with absolute values may lead to misinterpretation of CBC data. Current Interpretive Data was last revised on 2017. Eosinophil pct 2.7 % [facility] ([place]) Comment: Interpretive Data Percent cell count reference [...] revised on 2017. Blood 07/16/2024 8:10 AM GENERAL ASSISTANT 07/16/2024 8:42 AM GENERAL ASSISTANT Raquel Vasquez MD LAB BLOOD ORDERABLES Final Res ult [facility] ([facility]) 1 [facility] Department [place] [address] * (ABNORMAL) CBC with auto differential (07/16/2024 8:10 AM GENERAL ASSISTANT) WBC 5.6 3.8 - 9.9 K/cumm Hgb 14.2 13.0 - 17.5 g/dL [facility] ([place]) Hct 44.9 38.9 - 50.3 % [facility] ([place]) Plt 199 150 - 400 K/cumm [facility] ([place]) MPV 10.8 9.1 - 12.3 fL [facility] ([place]) RBC 4.63 4.30 - 5.80 M/cumm [facility] ([place]) MCV 97.0(H) 81.3 - 96.4 fL [facility] ([place]) Comment:MCV delta possibly d ue to low sample volume. MCH 30.7 27.1 - 33.3 pg [facility] ([place]) MCHC 31.6(L) 32.3 - 35.7 g/dL [facility] ([place]) RDW CV 13.1 11.1 - 14.9 % [facility] ([place]) RDW SD 46.7 35.7 - 48.1 fL [facility] ([place]) NRBC abs 0.00 0.00 - 0.01 K/cumm [facility] ([place]) Blood 07/16/2024 8:10 AM GENERAL ASSISTANT 07/16/2024 8:42 AM GENERAL ASSISTANT us Raquel Vasquez MD LAB BLOOD ORDERABLES Final Res ult [facility] ([place]) 1 [employer] [facility] Department [place] [address] * Pro B-type natriuretic peptide (07/16/2024 4:34 AM GENERAL ASSISTANT) NT-proBNP 197 <=300 pg/mL Comment: Interpretive Comments: [...] Revised Date: 2018. Blood 07/16/2024 4:34 AM GENERAL ASSISTANT 07/16/2024 5:57 PM GENERAL ASSISTANT us Raquel Vasquez MD LAB BLOOD ORDERABLES Final Res ult [facility] ([place]) 1 [facility] Department [place] [address] * eGFR (07/16/2024 4:34 AM GENERAL ASSISTANT) eGFR >90 >=60 mL/min/1. 73 m2 Comment: [...] last reviewed 2021. Blood 07/16/2024 4:34 AM GENERAL ASSISTANT 07/16/2024 5:20 AM GENERAL ASSISTANT us Gogo Yoo MD LAB BLOOD ORDERABLES Final Resu lt [facility] ([place]) 1 [facility] Department [place] [address] * (ABNORMAL) Comprehensive metabolic panel (07/16/2024 4:34 AM GENERAL ASSISTANT) Sodium 130(L) 135 - 145 mmol/L Potassium, [...] ([place]) ALT 20 7 - 55 Units/L [facility] ([place]) Comment:Hemolysis present. R esults may be affected. AST 36 10 - 50 Units/L [facility] ([place]) Comment: Hemolysis present. ??Results may be affected. Slightly Hemolyzed Specimen Blood 07/16/2024 4:34 AM GENERAL ASSISTANT 07/16/2024 4:54 AM GENERAL ASSISTANT Gogo Yoo MD LAB BLOOD ORDERABLES Final Resu lt [facility] ([place]) 1 [facility] Department [place] [address] * eGFR (07/15/2024 9:14 AM GENERAL ASSISTANT) eGFR >90 >=60 mL/min/1. 73 m2 Comment: [...] last reviewed 2021. Blood 07/15/2024 9:14 AM GENERAL ASSISTANT 07/15/2024 9:39 AM GENERAL ASSISTANT us Gogo Yoo MD LAB BLOOD ORDERABLES Final Resu lt [facility] ([place]) 1 [facility] Department [place] [address] * Differential, auto (07/15/2024 9:14 AM GENERAL ASSISTANT) Neutrophil abs 2.5 1.5 - 6.5 K/cumm Imm gran abs 0.1 0.0 - 0.1 K/cumm [facility] ([place]) Lymphocyte abs 2.4 0.8 - 3.3 K/cumm [facility] ([place]) Monocyte abs 0.8 0.2 - 0.8 K/cumm [facility] ([place]) Eosinophil abs 0.2 0.0 - 0.5 K/cumm [facility] ([place]) Basophil abs 0.1 0.0 - 0.1 K/cumm [facility] ([place]) Neutrophil pct 41.7 % [facility] ([place]) Comment: Interpretive Data Percent cell count reference ranges are not reported, since discordance with absolute values may lead to misinterpretation of CBC data. Current Interpretive Data was last revised on 2017. Imm gran pct 1.8 % [facility] ([place]) Comment: Interpretive Data Percent cell count reference [...] 2017. Monocyte pct 13.8 % [facility] ([place]) Comment: Interpretive Data Percent cell count reference [...] revised on 2017. Blood 07/15/2024 9:14 AM GENERAL ASSISTANT 07/15/2024 9:39 AM GENERAL ASSISTANT us Gogo Yoo MD LAB BLOOD ORDERABLES Final Resu lt [facility] ([place] 1 [facility] Department [place] [address] * CBC with auto differential (07/15/2024 9:14 AM GENERAL ASSISTANT) WBC 6.1 3.8 - 9.9 K/cumm Hgb [...] [facility] ([place]) Blood 07/15/2024 9:14 AM GENERAL ASSISTANT 07/15/2024 9:39 AM GENERAL ASSISTANT us Gogo Yoo MD LAB BLOOD ORDERABLES Final Resu lt [facility] ([place] 1 [facility] Department [place] [address] * Comprehensive metabolic panel (07/15/2024 9:14 AM GENERAL ASSISTANT) Sodium 136 135 - 145 mmol/L Potassium, [...] 19 7 - 55 Units/L [facility] ([place]) AST 22 10 - 50 Units/L [facility] ([place]) Blood 07/15/2024 9:14 AM GENERAL ASSISTANT 07/15/2024 9:39 AM GENERAL ASSISTANT us Gogo Yoo MD LAB BLOOD ORDERABLES Final Resu lt Performing Organization Address City/[facility]/ZIP Co de Phone Number [facility] ([place]) 1 [facility] [place] [address] * eGFR (07/14/2024 5:15 AM GENERAL ASSISTANT) eGFR >90 >=60 mL/min/1. 73 m2 Comment: [...] last reviewed 2021. Blood 07/14/2024 5:15 AM GENERAL ASSISTANT 07/14/2024 6:08 AM GENERAL ASSISTANT us Gogo Yoo MD LAB BLOOD ORDERABLES Final Resu lt Performing Organization Address City/[facility]/ZIP Co de Phone Number [facility] ([place]) 1 [facility] [place] [address] * Differential, auto (07/14/2024 5:15 AM GENERAL ASSISTANT) Neutrophil abs 2.3 1.5 - 6.5 K/cumm [...] revised on 2017. Blood 07/14/2024 5:15 AM GENERAL ASSISTANT 07/14/2024 6:07 AM GENERAL ASSISTANT us Gogo Yoo MD LAB BLOOD ORDERABLES Final Resu lt [facility] ([place]) 1 [facility] Department [place] [address] * (ABNORMAL) CBC with auto differential (07/14/2024 5:15 AM GENERAL ASSISTANT) [facility] WBC 5.2 3.8 - 9.9 K/cumm Hgb [...] [facility] ([place]) Blood 07/14/2024 5:15 AM GENERAL ASSISTANT 07/14/2024 6:07 AM GENERAL ASSISTANT us Gogo Yoo MD LAB BLOOD ORDERABLES Final Resu lt [facility] ([place]) 1 [facility] [place] [address] * Comprehensive metabolic panel (07/14/2024 5:15 AM GENERAL ASSISTANT) Sodium 135 135 - 145 mmol/L Potassium, [...] [facility] ([place]) Blood 07/14/2024 5:15 AM GENERAL ASSISTANT 07/14/2024 6:08 AM GENERAL ASSISTANT us Gogo Yoo MD LAB BLOOD ORDERABLES Final Resu lt [facility] ([place]) 1 [facility] [place] [address] * HIV 1/2 Antibody plus p24 Antigen Blood (07/13/2024 3:01 PM GENERAL ASSISTANT) [facility] HIV 1/2 ab + p24 ag Nonreactive Nonreactive Comment: Nonreactive for HIV-1 antigen and HIV-1/HIV-2 antibodies. No laboratory evidence of HIV infection. If acute HIV infection is suspected, consider testing for HIV-1 RNA. Testing performed by: [facility], [address] [place] [address]., [id number] Blood 07/13/2024 3:01 PM GENERAL ASSISTANT 07/13/2024 7:49 PM GENERAL ASSISTANT Gogo Yoo MD LAB MICROBIOLOGY - GENERAL [facility] Final Result Performing Organization Address City/[facility] Co de Phone Number [facility] ([place]) [address] [place] [address] [place] [address] * Hepatitis C antibody Blood (07/13/2024 3:01 PM GENERAL ASSISTANT) [facility] Hep C Ab Nonreactive Nonreactive Comment: Interpretive [...] last revised on 2019. Testing performed by: [facility], [address] [place] [address]., [id number] Blood 07/13/2024 3:01 PM GENERAL ASSISTANT 07/13/2024 7:49 PM GENERAL ASSISTANT Gogo Yoo MD LAB MICROBIOLOGY - [place] Final Result Performing Organization Address City/[facility] Co de Phone Number [facility] ([place]) 1 [facility] [place] [address] * Ethanol (07/13/2024 3:01 PM GENERAL ASSISTANT) Ethanol <10 <=10 mg/dL Comment: Interpretive Data Legal limit of intoxication > or = 80 mg/dL Levels > or = 400 mg/dL are potentially TOXIC. Current interpretive data was last revised on 2018. Blood 07/13/2024 3:01 PM GENERAL ASSISTANT 07/13/2024 3:05 PM GENERAL ASSISTANT Gogo Yoo MD LAB BLOOD ORDERABLES Final Resu lt Performing Organization Address [facility] Co de Phone Number [facility] ([place]) 1 [facility] [place] [address] * (ABNORMAL) aPTT (07/13/2024 3:01 PM GENERAL ASSISTANT) aPTT 39(H) 28 - 38 sec [facility] ([place]) Comment: Interpretive Data Heparin therapeutic range: 66.0 - 100.0 seconds. Range based on correlation with therapeutic heparin activity range of 0.3 - 0.7 Units/mL. Current interpretive data was last revised on 2023. Blood 07/13/2024 3:01 PM GENERAL ASSISTANT 07/13/2024 3:05 PM GENERAL ASSISTANT Gogo Yoo MD LAB BLOOD ORDERABLES Final Resu lt Performing Organization Address [facility] de Phone Number [facility] ([place]) [address] [facility] [place] [address] * (ABNORMAL) Protime-INR (07/13/2024 3:01 PM GENERAL ASSISTANT) PT 13.5(H) 9.7 - 13.0 sec [facility] ([place]) INR 1.24(H) 0.90 - 1.20 [facility] ([place]) Comment: Interpretive data Oral anticoagulant therapeutic ranges: Venous thromboembolism prophylaxis or treatment: 2.0-3.0 CARDIOLOGY Standard range: 2.0-3.0 High-intensity range: 2.5-3.5 Refer to indication-specific guidelines for appropriate target ranges for prosthetic heart valve replacement. Current interpretive data was last revised on 2019. Blood 07/13/2024 3:01 PM GENERAL ASSISTANT 07/13/2024 3:05 PM GENERAL ASSISTANT Result Emerald Yoo MD LAB BLOOD ORDERABLES Final Resu lt Performing Organization Address [facility]/ZIP Co de Phone Number [facility] ([place]) 1 [facility] [place] [address] * Lipase (07/13/2024 3:01 PM GENERAL ASSISTANT) Lipase 26 10 - 99 Units/L Blood 07/13/2024 3:01 PM GENERAL ASSISTANT 07/13/2024 3:05 PM GENERAL ASSISTANT us Gogo Yoo MD LAB BLOOD ORDERABLES Final Resu lt Performing Organization Address [facility] de Phone Number [facility] ([place]) [address] [facility] [place] [address] [place] [address] * (ABNORMAL) Amylase (07/13/2024 3:01 PM GENERAL ASSISTANT) Amylase 19(L) 30 - 99 Units/L Blood 07/13/2024 3:01 PM GENERAL ASSISTANT 07/13/2024 3:05 PM GENERAL ASSISTANT us Gogo Yoo MD LAB BLOOD ORDERABLES Final Resu lt Performing Organization Address [facility] Co de Phone Number [facility] ([place]) [address] [facility] [place] [address] [place] [address] * Magnesium (07/13/2024 3:01 PM GENERAL ASSISTANT) Magnesium 2.3 1.4 - 2.5 mg/dL Blood 07/13/2024 3:01 PM GENERAL ASSISTANT 07/13/2024 3:05 PM GENERAL ASSISTANT us Gogo Yoo MD LAB BLOOD ORDERABLES Final Resu lt Performing Organization Address City/[facility]/ZIP Co de Phone Number [facility] ([place]) 1 [facility] [place] [address] documented in this encounter Visit Diagnoses Diagnosis Alcohol abuse- Primary Nondependent alcohol abuse, unspecified drinking behavior Alcohol abuse Nondependent alcohol abuse, unspecified drinking behavior Paroxysmal atrial fibrillation (CMS/HCC) (HCC) Atrial fibrillation documented in this encounter Admitting Diagnoses Diagnosis Alcohol abuse Nondependent alcohol abuse, unspecified drinking behavior documented in this encounter Administered Medications Inactive Administered Medications - up to 3 most recent administrations Medication Order MAR Action Action Date Dose Rate Site acetaminophen (TYLENOL) tablet 650 mg 650 mg, oral, Every 4 hours PRN, fever, 1st line for pain, headaches, Starting on Tue07/13/24 at 1448 Given 07/14/2024 2:42 PM GENERAL ASSISTANT 650 mg albuterol 2.5 mg /3 mL (0.083 %) nebulizer solution 2.5 mg 2.5 mg, nebulization, Every 6 hours PRN (respiratory supervisor), wheezing, shortness of breath, Starting on Tue07/13/24 at 1517, This therapy was substituted for albuterol HFA per protocol. apixaban (ELIQUIS) tablet 5 mg 5 mg, oral, 2 times daily, First dose on Tue07/13/24 at 2100, Nurse to discontinue heparin infusion order and associated bolus at first administration of apixaban using ? order condition met? order source, Indications: atrial fibrillationIndications:atrial fibrillation Given 07/17/2024 7:49 PM GENERAL ASSISTANT 5 mg Given 07/17/2024 8:45 AM GENERAL ASSISTANT 5 mg Given 07/16/2024 8:13 PM GENERAL ASSISTANT 5 mg atorvastatin (LIPITOR) tablet 40 mg 40 mg, oral, Daily, First dose on Tue07/14/24 at 0900 Given 07/17/2024 8:45 AM GENERAL ASSISTANT 40 mg Given 07/16/2024 8:35 AM GENERAL ASSISTANT 40 mg Given 07/15/2024 7:55 AM GENERAL ASSISTANT 40 mg chlordiazePOXIDE (LIBRIUM) capsule 25 mg 25 mg, oral, Every 4 hours PRN, other, Score between 3 and 5 on Alcohol Withdrawl Assessment, Starting on Tue07/13/24 at 1407, For 6 days, HOLD for any status indicating over sedation including the following: drifts off to sleep during conversation, minimal or no response to verbal or physical stimulation, or respiratory rate less than 10 breaths per minute., Indications: Alcohol Withdrawal Assessment Scale scoreIndications:Alcohol Withdrawal Assessment Scale score Given 07/14/2024 10:30 AM GENERAL ASSISTANT 25 mg Given 07/13/2024 8:03 PM GENERAL ASSISTANT 25 mg chlordiazePOXIDE (LIBRIUM) capsule 25 mg 25 mg, oral, Every 2 hours PRN, other, Score between 6 and 12 on Alcohol Withdrawl Assessment, Starting on Tue07/13/24 at 1407, For 6 days, HOLD for any status indicating over sedation including the following: drifts off to sleep during conversation, minimal or no response to verbal or physical stimulation, or respiratory rate less than 10 breaths per minute., Indications: Alcohol Withdrawal Assessment Scale scoreIndications:Alcohol Withdrawal Assessment Scale score Given 07/14/2024 5:34 AM GENERAL ASSISTANT 25 mg chlordiazePOXIDE (LIBRIUM) capsule 25 mg 25 mg, oral, Every 8 hours, First dose on 07/16/24 at 1700, For 3 doses Given 07/17/2024 8:45 AM GENERAL ASSISTANT 25 mg Given 07/17/2024 12:22 AM GENERAL ASSISTANT 25 mg Given 07/16/2024 4:52 PM GENERAL ASSISTANT 25 mg chlordiazePOXIDE (LIBRIUM) capsule 50 mg 50 mg, oral, Every 6 hours, First dose on 07/14/24 at 1500, For 3 doses Given 07/15/2024 3:28 AM GENERAL ASSISTANT 50 mg Given 07/14/2024 8:53 PM GENERAL ASSISTANT 50 mg Given 07/14/2024 3:01 PM GENERAL ASSISTANT 50 mg chlordiazePOXIDE (LIBRIUM) capsule 50 mg 50 mg, oral, Every 8 hours, First dose on Tue07/15/24 at 0900, For 4 doses Given 07/16/2024 8:34 AM GENERAL ASSISTANT 50 mg Given 07/16/2024 1:54 AM GENERAL ASSISTANT 50 mg Given 07/15/2024 4:25 PM GENERAL ASSISTANT 50 mg dapagliflozin propanediol (FARXIGA) tablet 10 mg 10 mg, oral, Daily, First dose on 07/14/24 at 0900, I /authorizing provider attest that the patient meets the approved [facility] Use Criteria: Yes, Approving Provider: gogo yoo, Indications: Heart FailureIndications:Heart Failure Given 07/17/2024 8:46 AM GENERAL ASSISTANT 10 mg Given 07/16/2024 8:35 AM GENERAL ASSISTANT 10 mg Given 07/15/2024 7:55 AM GENERAL ASSISTANT 10 mg dicyclomine (BENTYL) capsule 20 mg 20 mg, oral, Every 6 hours PRN, abdominal discomfort, Starting on Tue07/14/24 at 1441, Indications: Abdominal Pain with CrampsIndications:Abdominal Pain with Cramps dilTIAZem CD (CARDIZEM CD) 24 hour capsule 300 mg 300 mg, oral, Daily, First dose on Tue07/14/24 at 0900, Do not crush, chew, cut, dissolve, open or otherwise manipulate tablet/capsule. Given 07/17/2024 8:45 AM GENERAL ASSISTANT 300 mg Given 07/16/2024 8:35 AM GENERAL ASSISTANT 300 mg Given 07/15/2024 7:55 AM GENERAL ASSISTANT [address] (CYMBALTA) extended release capsule 60 mg 60 mg, oral, 2 times daily, First dose on Tue07/13/24 at 2100, Capsule may be opened and contents mixed with applesauce or apple juice ONLY. Do not crush or chew capsule Given 07/17/2024 7:48 PM GENERAL ASSISTANT 60 mg Given 07/17/2024 8:45 AM GENERAL ASSISTANT 60 mg Given 07/16/2024 8:13 PM GENERAL ASSISTANT 60 mg folic acid (FOLVITE) tablet 1 mg 1 mg, oral, Daily, First dose on Tue07/13/24 at 1445, For 5 days, Each tablet contains 1 mg of folic acid (1.67 mg DFE)., Indications: Treatment of known or suspected Wernicke's EncephalopathyIndications:Treatment of known or suspected Wernicke's Encephalopathy Given 07/17/2024 8:45 AM GENERAL ASSISTANT 1 mg Given 07/16/2024 8:35 AM GENERAL ASSISTANT 1 mg Given 07/15/2024 7:55 AM GENERAL ASSISTANT 1 mg furosemide (LASIX) tablet 20 mg 20 mg, oral, Daily, First dose on Tue07/14/24 at 0900 Given 07/17/2024 8:45 AM GENERAL ASSISTANT 20 mg Given 07/16/2024 8:35 AM GENERAL ASSISTANT 20 mg Given 07/15/2024 7:55 AM GENERAL ASSISTANT 20 mg gabapentin (NEURONTIN) capsule 600 mg 600 mg, oral, 3 times daily, First dose on Tue07/13/24 at 1600 Given 07/17/2024 7:49 PM GENERAL ASSISTANT 600 mg Given 07/17/2024 8:45 AM GENERAL ASSISTANT 600 mg Given 07/16/2024 8:13 PM GENERAL ASSISTANT 600 mg hydrOXYzine (ATARAX) tablet 50 mg 50 mg, oral, Every 6 hours PRN, mild anxiety - patient reported scale 1-4, Starting on 07/14/24 at 1441 influenza trivalent [id number] (FLULAVAL,FLUARIX,FLUZONE) 45 mcg (15 mcg x 3)/0.5 mL vaccine (STANDARD age 6 months and up) 0.5 mL 0.5 mL, intramuscular, During hospitalization, immunization, Starting on 07/14/24 at 0853, For 1 dose LORazepam (ATIVAN) 1 mg in sodium chloride 0.9% (further dilution required) injection 1 mg, intravenous, Every 1 hour PRN, other, Score between 13 and 18 on Alcohol Withdrawl Assessment, Starting on Tue07/13/24 at 1407, For 6 days, HOLD for any status indicating over sedation including the following: drifts off to sleep during conversation, minimal or no response to verbal or physical stimulation, or respiratory rate less than 10 breaths per minute. Withdraw ordered dose amount then dilute with equal volume of 0.9% sodium chloride. Administer total volume to patient. Do not exceed a rate of 2 mg/minute., Indications: Alcohol Withdrawal Assessment Scale scoreIndications:Alcohol Withdrawal Assessment Scale score LORazepam (ATIVAN) 2 mg in sodium chloride 0.9% (further dilution required) injection 2 mg, intravenous, Every 1 hour PRN, other, Score greater than 18 on Alcohol Withdrawl Assessment, Starting on Tue07/13/24 at 1407, For 6 days, HOLD for any status indicating over sedation including the following: drifts off to sleep during conversation, minimal or no response to verbal or physical stimulation, or respiratory rate less than 10 breaths per minute. Withdraw ordered dose amount then dilute with equal volume of 0.9% sodium chloride. Administer total volume to patient. Do not exceed a rate of 2 mg/minute., Indications: Alcohol Withdrawal Assessment Scale scoreIndications:Alcohol Withdrawal Assessment Scale score LORazepam (ATIVAN) injection 1 mg 1 mg, intramuscular, Every 1 hour PRN, other, Score between 13 and 18 on Alcohol Withdrawl Assessment, Starting on Tue07/13/24 at 1407, For 6 days, Administer IM if unable to provide IV Push. HOLD for any status indicating over sedation including the following: drifts off to sleep during conversation, minimal or no response to verbal or physical stimulation, or respiratory rate less than 10 breaths per minute. For IV administration, draw up ordered admin dose/volume, then dilute with equal volume of 0.9% sodium chloride and administer total volume to patient. Do not exceed a rate of 2 mg/minute., Indications: Alcohol Withdrawal Assessment Scale scoreIndications:Alcohol Withdrawal Assessment Scale score LORazepam (ATIVAN) injection 2 mg 2 mg, intramuscular, Every 1 hour PRN, other, Score greater than 18 on Alcohol Withdrawl Assessment, Starting on Tue07/13/24 at 1407, For 6 days, Administer IM if unable to provide IV Push. HOLD for any status indicating over sedation including the following: drifts off to sleep during conversation, minimal or no response to verbal or physical stimulation, or respiratory rate less than 10 breaths per minute. For IV administration, draw up ordered admin dose/volume, then dilute with equal volume of 0.9% sodium chloride and administer total volume to patient. Do not exceed a rate of 2 mg/minute., Indications: Alcohol Withdrawal Assessment Scale scoreIndications:Alcohol Withdrawal Assessment Scale score losartan (COZAAR) tablet 25 mg 25 mg, oral, Daily, First dose on Tue07/14/24 at 0900, On hold since Tue07/16/2024 at 0733 until manually unheld Given 07/15/2024 7:55 AM GENERAL ASSISTANT 25 mg Given 07/14/2024 7:59 AM GENERAL ASSISTANT 25 mg methocarbamoL (ROBAXIN) tablet 750 mg 750 mg, oral, Every 6 hours PRN, muscle spasms, muscle aches, Starting on Tue07/14/24 at 1441 metoprolol tartrate (LOPRESSOR) immediate release tablet 50 mg 50 mg, oral, 2 times daily, First dose on Tue07/13/24 at 2100 Given 07/17/2024 7:49 PM GENERAL ASSISTANT 50 mg Given 07/17/2024 8:45 AM GENERAL ASSISTANT 50 mg Given 07/16/2024 8:15 PM GENERAL ASSISTANT 50 mg mirtazapine (REMERON) tablet 15 mg 15 mg, oral, Nightly, First dose on Tue07/13/24 at 2100 Given 07/17/2024 7:49 PM GENERAL ASSISTANT 15 mg Given 07/16/2024 8:13 PM GENERAL ASSISTANT 15 mg Given 07/15/2024 8:03 PM GENERAL ASSISTANT 15 mg multivit ieuwsfnu-nfyr-UO-calcium (THERA-M) tablet 1 tablet 1 tablet, oral, Daily, First dose on Tue07/13/24 at 1445, Indications: Vitamin Deficiency PreventionIndications:Vitamin Deficiency Prevention Given 07/17/2024 8:46 AM GENERAL ASSISTANT 1 tablet Given 07/16/2024 8:34 AM GENERAL ASSISTANT 1 tablet Given 07/15/2024 7:55 AM GENERAL ASSISTANT 1 tablet ondansetron (ZOFRAN) injection 4 mg 4 mg, intravenous, Administer over 2 Minutes, Every 4 hours PRN, nausea, vomiting, Starting on Tue07/13/24 at 1451 sodium zirconium cyclosilicate (LOKELMA) packet 10 g 10 g, oral, Once, On Tue07/16/24 at 1000, For 1 dose, Adjust medication timing to ensure other oral medications are administered at least 2 hours before or 2 hours after sodium zirconium cyclosilicate. Empty packet(s) into a glass with 3 tablespoons (45 mL) of water. Stir and administer immediately. Repeat until no powder remains in glass., Indications: hyperkalemiaIndications:hyperkalemia Given 07/16/2024 8:35 AM GENERAL ASSISTANT 10 g spironolactone (ALDACTONE) tablet 25 mg 25 mg, oral, Daily, First dose on Tue07/14/24 at 0900, On hold since Tue07/16/2024 at 0733 until manually unheld Given 07/15/2024 7:55 AM GENERAL ASSISTANT 25 mg Given 07/14/2024 7:59 AM GENERAL ASSISTANT 25 mg thiamine (VITAMIN B1) tablet 100 mg 100 mg, oral, Daily, First dose on Tue07/13/24 at 1530 Given 07/17/2024 8:45 AM GENERAL ASSISTANT 100 mg Given 07/16/2024 8:35 AM GENERAL ASSISTANT 100 mg Given 07/15/2024 7:55 AM GENERAL ASSISTANT 100 mg traZODone (DESYREL) tablet 50 mg 50 mg, oral, Nightly, First dose on Tue07/13/24 at 2100 Given 07/17/2024 7:48 PM GENERAL ASSISTANT 50 mg Given 07/16/2024 8:13 PM GENERAL ASSISTANT 50 mg Given 07/15/2024 8:03 PM GENERAL ASSISTANT 50 mg documented in this encounter Discontinued Medications Medication Sig Discontinue Reason Start Date End Da te dilTIAZem CD (CARDIZEM CD) 300 mg 24 hr capsule Take 1 capsule (300 mg total) by mouth daily 06/21/2023 07/17/2024 ALPRAZolam (XANAX) 0.25 mg tabletIndications:Gene ralized Anxiety Disorder Take 1 tablet (0.25 mg total) by mouth 2 (two) times a day as needed for anxiety Stop Taking at Discharge 05/23/2022 07/18/2024 ARIPiprazole (ABILIFY) 5 mg tablet daily Stop Taking at Discharge 10/12/2023 07/18/2024 documented as of this encounter Historical Medications * This list may reflect changes made after this encounter. traZODone (DESYREL) 50 mg tablet Take 1 tablet (50 mg total) by mouth nightly added in this encounter Active and Recently Administered Medications Times are shown in GENERAL ASSISTANT. Scheduled Medication Order 07/16/2024 07/17/2024 07/18/2024 apixaban (ELIQUIS) tablet 5 mg 5 mg, oral, 2 times daily, First dose on Tue07/13/24 at 2100, Nurse to discontinue heparin infusion order and associated bolus at first administration of apixaban using ? order condition met? order source, Indications: atrial fibrillation 0835 (Given - Provider: Amrita Perez RN)2012 (Given - Provider: Tori Rubio, [place]) 0845 (Given - Provider: Amrita Perez RN)1948 (Given - Provider: Tori Rubio, [place]) atorvastatin (LIPITOR) tablet 40 mg 40 mg, oral, Daily, First dose on 07/14/24 at 0900 0835 (Given - Provider: Amrita Perez RN) 0845 (Given - Provider: Amrita Perez RN) chlordiazePOXIDE (LIBRIUM) capsule 25 mg (COMPLETED)(Linked Group 1) 25 mg, oral, Every 8 hours, First dose on Tue07/16/24 at 1700, For 3 doses 1652 (Given - Provider: Amrita Perez RN) 0022 (Given - Provider: Tori Rubio RN)0845 (Given - Provider: Amrita Perez RN) chlordiazePOXIDE (LIBRIUM) capsule 50 mg (COMPLETED)(Linked Group 1) 50 mg, oral, Every 8 hours, First dose on Tue07/15/24 at 0900, For 4 doses 0154 (Given - Provider: Tori Rubio RN)0834 (Given - Provider: Amrita Perez RN) dapagliflozin propanediol (FARXIGA) tablet 10 mg 10 mg, oral, Daily, First dose on 07/14/24 at 0900, I /authorizing provider attest that the patient meets the approved [facility] Use Criteria: Yes, Approving Provider: gogo yoo, Indications: Heart Failure 0835 (Given - Provider: Amrita Perez RN) 0846 (Given - Provider: Amrita Perez RN) dilTIAZem CD (CARDIZEM CD) 24 hour capsule 300 mg 300 mg, oral, Daily, First dose on Tue07/14/24 at 0900, Do not crush, chew, cut, dissolve, open or otherwise manipulate tablet/capsule. 0835 (Given - Provider: Amrita Perez RN) 0845 (Given - Provider: Amrita Perez RN) DULoxetine DR (CYMBALTA) extended release capsule 60 mg 60 mg, oral, 2 times daily, First dose on Tue07/13/24 at 2100, Capsule may be opened and contents mixed with applesauce or apple juice ONLY. 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 0835 (Given - Provider: Amrita Perez RN) 0845 (Given - Provider: Amrita Perez RN) furosemide (LASIX) tablet 20 mg 20 mg, oral, Daily, First dose on 07/14/24 at 0900 0835 (Given - Provider: Amrita Perez RN) 0845 (Given - Provider: Amrita Perez RN) gabapentin (NEURONTIN) capsule 600 mg 600 mg, oral, 3 times daily, First dose on Tue07/13/24 at 1600 0834 (Given - Provider: Amrita Perez RN)1652 (Given - Provider: Amrita Perez RN)2012 (Given - Provider: Tori Rubio RN) 0845 (Given - Provider: Amrita Perez RN)1600 (Due)194 (Given - Provider: Tori Rubio RN) losartan (COZAAR) tablet 25 mg 25 mg, oral, Daily, First dose on 07/14/24 at 0900, On hold since Tue07/16/2024 at 0733 until manually unheld 0733 (Held by Provider - Provider: Raquel Vasquez MD - Reason: Change in Patient Status)0900 (Dose Auto Held - Provider: Raquel Vasquez MD) 0900 (Dose Auto Held - Provider: Raquel Vasquez MD) 1242 (Unheld by Provider - Provider: Automatic Discharge Provider) metoprolol tartrate (LOPRESSOR) immediate release tablet 50 mg 50 mg, oral, 2 times daily, First dose on Tue07/13/24 at 2100 0835 (Given - Provider: Amrita Perez RN)2014 (Given - Provider: Tori Rubio RN) 0845 (Given - Provider: Amrita Perez RN)194 (Given - Provider: Tori Rubio RN) mirtazapine (REMERON) tablet 15 mg 15 mg, oral, Nightly, First dose on Tue07/13/24 at 2100 2012 (Given - Provider: Tori Rubio RN) 194 (Given - Provider: Tori Rubio, [place]) multivit uvxicxmm-gkhl-OI-calcium (THERA-M) tablet 1 tablet 1 tablet, oral, Daily, First dose on Tue07/13/24 at 1445, Indications: Vitamin Deficiency Prevention 0834 (Given - Provider: Amrita Perez RN) 0846 (Given - Provider: Amrita Perez, [place]) sodium zirconium cyclosilicate (LOKELMA) packet 10 g (COMPLETED) 10 g, oral, Once, On Tue07/16/24 at 1000, For 1 dose, Adjust medication timing to ensure other oral medications are administered at least 2 hours before or 2 hours after sodium zirconium cyclosilicate. Empty packet(s) into a glass with 3 tablespoons (45 mL) of water. Stir and administer immediately. Repeat until no powder remains in glass., Indications: hyperkalemia 0835 (Given - Provider: Amrita Perez RN) spironolactone (ALDACTONE) tablet 25 mg 25 mg, oral, Daily, First dose on Tue07/14/24 at 0900, On hold since Tue07/16/2024 at 0733 until manually unheld 0733 (Held by Provider - Provider: Raquel Vasquez MD - Reason: Change in Patient Status)0900 (Dose Auto Held - Provider: Raquel Vasquez MD) 0900 (Dose Auto Held - Provider: Raquel Vasquez MD) 1242 (Unheld by Provider - Provider: Automatic Discharge Provider) thiamine (VITAMIN B1) tablet 100 mg 100 mg, oral, Daily, First dose on Tue07/13/24 at 1530 0835 (Given - Provider: Amrita Perez RN) 0845 (Given - Provider: Amrita Perez, [place]) traZODone (DESYREL) tablet 50 mg 50 mg, oral, Nightly, First dose on Tue07/13/24 at 2100 2012 (Given - Provider: Tori Rubio, [place]) 1948 (Given - Provider: Tori Rubio, [place]) PRN Medication Order 07/16/2024 07/17/2024 07/18/2024 acetaminophen (TYLENOL) tablet 650 mg 650 mg, oral, Every 4 hours PRN, fever, 1st line for pain, headaches, Starting on Tue07/13/24 at 1448 albuterol 2.5 mg /3 mL (0.083 %) nebulizer solution 2.5 mg 2.5 mg, nebulization, Every 6 hours PRN (respiratory supervisor), wheezing, shortness of breath, Starting on Tue07/13/24 at 1517, This therapy was substituted for albuterol HFA per protocol. chlordiazePOXIDE (LIBRIUM) capsule 25 mg(Linked Group 2) 25 mg, oral, Every 4 hours PRN, other, Score between 3 and 5 on Alcohol Withdrawl Assessment, Starting on Tue07/13/24 at 1407, For 6 days, HOLD for any status indicating over sedation including the following: drifts off to sleep during conversation, minimal or no response to verbal or physical stimulation, or respiratory rate less than 10 breaths per minute., Indications: Alcohol Withdrawal Assessment Scale score chlordiazePOXIDE (LIBRIUM) capsule 25 mg(Linked Group 2) 25 mg, oral, Every 2 hours PRN, other, Score between 6 and 12 on Alcohol Withdrawl Assessment, Starting on Tue07/13/24 at 1407, For 6 days, HOLD for any status indicating over sedation including the following: drifts off to sleep during conversation, minimal or no response to verbal or physical stimulation, or respiratory rate less than 10 breaths per minute., Indications: Alcohol Withdrawal Assessment Scale score dicyclomine (BENTYL) capsule 20 mg 20 mg, oral, Every 6 hours PRN, abdominal discomfort, Starting on 07/14/24 at 1441, Indications: Abdominal Pain with Cramps hydrOXYzine (ATARAX) tablet 50 mg 50 mg, oral, Every 6 hours PRN, mild anxiety - patient reported scale 1-4, Starting on 07/14/24 at 1441 influenza trivalent [id number] (FLULAVAL,FLUARIX,FLUZONE) 45 mcg (15 mcg x 3)/0.5 mL vaccine (STANDARD age 6 months and up) 0.5 mL 0.5 mL, intramuscular, During hospitalization, immunization, Starting on 07/14/24 at 0853, For 1 dose LORazepam (ATIVAN) 1 mg in sodium chloride 0.9% (further dilution required) injection(Linked Group 2) 1 mg, intravenous, Every 1 hour PRN, other, Score between 13 and 18 on Alcohol Withdrawl Assessment, Starting on Tue07/13/24 at 1407, For 6 days, HOLD for any status indicating over sedation including the following: drifts off to sleep during conversation, minimal or no response to verbal or physical stimulation, or respiratory rate less than 10 breaths per minute. Withdraw ordered dose amount then dilute with equal volume of 0.9% sodium chloride. Administer total volume to patient. Do not exceed a rate of 2 mg/minute., Indications: Alcohol Withdrawal Assessment Scale score LORazepam (ATIVAN) 2 mg in sodium chloride 0.9% (further dilution required) injection(Linked Group 2) 2 mg, intravenous, Every 1 hour PRN, other, Score greater than 18 on Alcohol Withdrawl Assessment, Starting on Tue07/13/24 at 1407, For 6 days, HOLD for any status indicating over sedation including the following: drifts off to sleep during conversation, minimal or no response to verbal or physical stimulation, or respiratory rate less than 10 breaths per minute. Withdraw ordered dose amount then dilute with equal volume of 0.9% sodium chloride. Administer total volume to patient. Do not exceed a rate of 2 mg/minute., Indications: Alcohol Withdrawal Assessment Scale score LORazepam (ATIVAN) injection 1 mg(Linked Group 2) 1 mg, intramuscular, Every 1 hour PRN, other, Score between 13 and 18 on Alcohol Withdrawl Assessment, Starting on Tue07/13/24 at 1407, For 6 days, Administer IM if unable to provide IV Push. HOLD for any status indicating over sedation including the following: drifts off to sleep during conversation, minimal or no response to verbal or physical stimulation, or respiratory rate less than 10 breaths per minute. For IV administration, draw up ordered admin dose/volume, then dilute with equal volume of 0.9% sodium chloride and administer total volume to patient. Do not exceed a rate of 2 mg/minute., Indications: Alcohol Withdrawal Assessment Scale score LORazepam (ATIVAN) injection 2 mg(Linked Group 2) 2 mg, intramuscular, Every 1 hour PRN, other, Score greater than 18 on Alcohol Withdrawl Assessment, Starting on Tue07/13/24 at 1407, For 6 days, Administer IM if unable to provide IV Push. HOLD for any status indicating over sedation including the following: drifts off to sleep during conversation, minimal or no response to verbal or physical stimulation, or respiratory rate less than 10 breaths per minute. For IV administration, draw up ordered admin dose/volume, then dilute with equal volume of 0.9% sodium chloride and administer total volume to patient. Do not exceed a rate of 2 mg/minute., Indications: Alcohol Withdrawal Assessment Scale score methocarbamoL (ROBAXIN) tablet 750 mg 750 mg, oral, Every 6 hours PRN, muscle spasms, muscle aches, Starting on Tue07/14/24 at 1441 ondansetron (ZOFRAN) injection 4 mg 4 mg, intravenous, Administer over 2 Minutes, Every 4 hours PRN, nausea, vomiting, Starting on Tue07/13/24 at 1451 Linked Groups Order Group 1: chlordiazePOXIDE (LIBRIUM) capsule 50 mg (COMPLETED) 50 mg, oral, Every 6 hours, First dose on Tue07/14/24 at 1500, For 3 doses Followed by chlordiazePOXIDE (LIBRIUM) capsule 50 mg (COMPLETED)Jump to med 50 mg, oral, Every 8 hours, First dose on Tue07/15/24 at 0900, For 4 doses Followed by chlordiazePOXIDE (LIBRIUM) capsule 25 mg (COMPLETED)Jump to med 25 mg, oral, Every 8 hours, First dose on 07/16/24 at 1700, For 3 doses Group 2: chlordiazePOXIDE (LIBRIUM) capsule 25 mgJump to med 25 mg, oral, Every 4 hours PRN, other, Score between 3 and 5 on Alcohol Withdrawl Assessment, Starting on Tue07/13/24 at 1407, For 6 days, HOLD for any status indicating over sedation including the following: drifts off to sleep during conversation, minimal or no response to verbal or physical stimulation, or respiratory rate less than 10 breaths per minute., Indications: Alcohol Withdrawal Assessment Scale score Or chlordiazePOXIDE (LIBRIUM) capsule 25 mgJump to med 25 mg, oral, Every 2 hours PRN, other, Score between 6 and 12 on Alcohol Withdrawl Assessment, Starting on Tue07/13/24 at 1407, For 6 days, HOLD for any status indicating over sedation including the following: drifts off to sleep during conversation, minimal or no response to verbal or physical stimulation, or respiratory rate less than 10 breaths per minute., Indications: Alcohol Withdrawal Assessment Scale score Or LORazepam (ATIVAN) 1 mg in sodium chloride 0.9% (further dilution required) injectionJump to med 1 mg, intravenous, Every 1 hour PRN, other, Score between 13 and 18 on Alcohol Withdrawl Assessment, Starting on Tue07/13/24 at 1407, For 6 days, HOLD for any status indicating over sedation including the following: drifts off to sleep during conversation, minimal or no response to verbal or physical stimulation, or respiratory rate less than 10 breaths per minute. Withdraw ordered dose amount then dilute with equal volume of 0.9% sodium chloride. Administer total volume to patient. Do not exceed a rate of 2 mg/minute., Indications: Alcohol Withdrawal Assessment Scale score Or LORazepam (ATIVAN) injection 1 mgJump to med 1 mg, intramuscular, Every 1 hour PRN, other, Score between 13 and 18 on Alcohol Withdrawl Assessment, Starting on Tue07/13/24 at 1407, For 6 days, Administer IM if unable to provide IV Push. HOLD for any status indicating over sedation including the following: drifts off to sleep during conversation, minimal or no response to verbal or physical stimulation, or respiratory rate less than 10 breaths per minute. For IV administration, draw up ordered admin dose/volume, then dilute with equal volume of 0.9% sodium chloride and administer total volume to patient. Do not exceed a rate of 2 mg/minute., Indications: Alcohol Withdrawal Assessment Scale score Or LORazepam (ATIVAN) 2 mg in sodium chloride 0.9% (further dilution required) injectionJump to med 2 mg, intravenous, Every 1 hour PRN, other, Score greater than 18 on Alcohol Withdrawl Assessment, Starting on Tue07/13/24 at 1407, For 6 days, HOLD for any status indicating over sedation including the following: drifts off to sleep during conversation, minimal or no response to verbal or physical stimulation, or respiratory rate less than 10 breaths per minute. Withdraw ordered dose amount then dilute with equal volume of 0.9% sodium chloride. Administer total volume to patient. Do not exceed a rate of 2 mg/minute., Indications: Alcohol Withdrawal Assessment Scale score Or LORazepam (ATIVAN) injection 2 mgJump to med 2 mg, intramuscular, Every 1 hour PRN, other, Score greater than 18 on Alcohol Withdrawl Assessment, Starting on Tue07/13/24 at 1407, For 6 days, Administer IM if unable to provide IV Push. HOLD for any status indicating over sedation including the following: drifts off to sleep during conversation, minimal or no response to verbal or physical stimulation, or respiratory rate less than 10 breaths per minute. For IV administration, draw up ordered admin dose/volume, then dilute with equal volume of 0.9% sodium chloride and administer total volume to patient. Do not exceed a rate of 2 mg/minute., Indications: Alcohol Withdrawal Assessment Scale score documented in this encounter Orders Medications Ordered That Luis Angel ht Not Have Been Administered Count Last Ordered Date First Ordered Date dicyclomine (BENTYL) capsule 20 mg 1 2024 enoxaparin (LOVENOX) syringe 40 mg 2 202407/13/2024 hydrOXYzine (ATARAX) tablet 50 mg influenza trivalent 5 (FLULAVAL,FLUARIX,FLUZONE) 45 mcg (15 mcg x 3)/0.5 mL vaccine (STANDARD age 6 months and up) 0.5 mL 1 07/14/2024 methocarbamoL (ROBAXIN) tablet 750 mg 1 albuterol 2.5 mg /3 mL (0.08 3 %) nebulizer solution 2.5 mg 1 07/13/2024 albuterol HFA (PROVENTIL HFA ,VENTOLIN HFA,PROAIR HFA) 90 mcg/actuation inhaler 2 puff 1 07/13/2024 folic acid (FOLVITE) 1 mg in sodium chloride 0.9% 50 mL IVPB 07/13/2024 folic acid (FOLVITE) tablet 1 mg 1 07/13/19 LORazepam (ATIVAN) 1 mg in s odium chloride 0.9% (further dilution required) injection 07/13/2024 LORazepam (ATIVAN) 2 mg in s odium chloride 0.9% (further dilution required) injection 07/13/2024 LORazepam (ATIVAN) injection 1 mg LORazepam (ATIVAN) injection 2 mg ondansetron (ZOFRAN) injection 4 mg 1 07/13 Diet Count Last Ordered Date First Orde red Date ADULT DISCHARGE DIET 1 07/17/2024 Nursing Count Last Ordered Date First Orde red Date DISCHARGE ACTIVITY 1 07/17/2024 DISCHARGE CALL PROVIDER 8 07/17/2024 DISCHARGE INSTRUCTIONS 1 07/17/2024 FOLLOW UP WITH ESTABLISHED PROVIDER 1 07/17 WEIGH PATIENT 1 07/14/2024 Consult Count Last Ordered Date First Orde red Date [facility] 1 025 Admission Count Last Ordered Date First Orde red Date ADMIT TO INPATIENT 1 07/13/2024 Discharge Count Last Ordered Date First Orde red Date DISCHARGE PATIENT 1 07/17/2024 documented in this encounter Care Teams Batt Machine Operator Relationship Specialty Start Date End Date Clinton Maddox MD [address] [facility] [place] [address] PCP - General Internal Medicine 06/14/23 Clinton Maddox MD [address] [facility] [place] [address] Internal Medicine 06/14/23 documented as of this encounter
--- OUTSIDE RECORDS SUMMARY | 2024-07-19 20:14 | XMS_ITS | Clinical Summary ---
Author Organization [facility] Address [address] [place] [address]. [address] [address] Care Team Providers Care Load Mixer Name Role Phone Unavailable Primary Care Provider [...]
--- OUTSIDE RECORDS SUMMARY | 2024-07-19 20:14 | XMS_ITS | Encounter Summary ---
Author Organization [facility] Healthcare Address [address] [place] [id number] Care Team Providers Care Miller Supervisor Name Role Phone Clinton Maddox MD Primary Care Provider [phone] Clinton Maddox MD Unavailable [phone] Encounter Details Date Type Department Care Team (Late st Contact Info) Description 07/16/2024 [facility] Enrollment [facility] Warm Hand Off Program [address] [place], [place] [phone] Vidal Smalls Social History Tobacco Use Types Packs/Day Years Used Date Smoking Tobacco: Never Alcohol Use Standard Drinks/Week Comments Yes 0 (1 standard drink = 0.6 oz pur e alcohol) [facility] Utilities Answer Date Recorded In the past 12 months has [employer] electric, gas, oil, or water company threatened [...] often do you attend chur ch or yazidi services? Never 09/22/2023 Do you belong to any clubs o r organizations such as mu-ism groups, unions, fraternal or athletic groups, or [...] place to sleep or slept in a [facility] (including now)? No 09/22/2023 Personal Safety Answer [...] on file documented as of this encounter Plan of Treatment Not on file documented as of this encounter Visit Diagnoses Not on filedocumented in this encounter Care Teams Miller Supervisor Relationship Specialty Start Date End Date Clinton Maddox MD [address] [facility] [place] [address] PCP - General Internal Medicine 06/14/23 Clinton Maddox MD [address] [facility] [place] [address] Internal Medicine 06/14/23 documented as of this encounter
--- NOTE | 2024-07-19 22:14 | PC.NURSE ---
discharge papers handed to me by edp. this rn did not observe pt to do an assessment.
== END 2024-07-19 22:15 | disposition home or self-care (01) ==
LOC: ANHED 20:12
PROVIDERS: Emergency Provider Physician Assistant; PCP Internal Medicine
DX: J11.1 Influenza due to unidentified influenza virus with other respiratory manifestations (principal); Z20.822 Contact with and (suspected) exposure to COVID-19
CPT/HCPCS: 71046; 87637; 99283